=== PATIENT | female | born 1950 | race Caucasian/White ===

== ENCOUNTER 2017-07-27 09:16 | Emergency (ER) | payer MEDICARE ==
[2017-07-27 09:43] VITALS: RESP 18
[2017-07-27 10:19] LABS: Appearance,Urine Cloudy (Clear); Bacteria,Urine Occasional /hpf; Bilirubin,Urine Negative (Negative); Blood,Urine Negative (Negative); Color,Urine Yellow; Glucose,Urine (UA) Negative (Negative); Hyaline Casts,Urine 1 /lpf (0-2); Ketones,Urine Negative (Negative); Leukocyte Esterase,Urine Large (Negative); Mucus,Urine Occasional /hpf; Nitrite,Urine Negative (Negative); PH, Urine 5.5 (5.0-8.0); Protein,Urine Trace (Negative); RBC,Urine 1 /hpf (0-5); Specific Gravity,Urine 1.019 (1.001-1.035); Squamous Epithelial Cell,Urine 13 /hpf (0-4); Urobilinogen,Urine <2.0 mg/dL (<2.0); WBC,Urine 12 /hpf (0-5)
[2017-07-27] MEDS ORDERED: MORPHINE SULFATE/PF 10MG/10ML VL IVP STA (10:31)
[2017-07-27] MEDS ORDERED: SODIUM CHLORIDE 0.9% 1,000 ML IV ONE (10:31)
[2017-07-27] MEDS ORDERED: SODIUM CHLORIDE 0.9% 500 ML IV ONE (10:31)
[2017-07-27] MEDS ORDERED: ONDANSETRON 4 MG/2 ML VIAL IVP STA (10:31)
--- NOTE | 2017-07-27 10:36 | ED ---
Female Urogenital HPI - General Chief complaint: Urogenital Stated complaint: Abdominal pain Time Seen by Provider: 07/27/17 10:23 Source: patient Mode of arrival: ambulatory Limitations: no limitations - History of Present Illness Initial comments: DX years old female presents with a 2 days with diarrhea she developed dysuria last night and this morning she said she was unable to void at all also complaining about abdominal pain in the suprapubic area pain extends to the right lower quadrant area as well as left lower quadrant area and possibly surgical history is quite significant and she status post appendectomy, cholecystectomy and hysterectomy she was complaining about fever or chills blood pressure is high was unable to take her medications she was nauseous. Denies any headaches no neck stiffness no chest pain no shortness of breath no symptoms of TIA or CVA - Related Data Home Medications Medication Instructions Recorded Confirmed Cholecalciferol [Vitamin D3] 2,000 unit PO DAILY 09/21/14 07/27/17 amLODIPine BESYLATE/BENAZEPRIL 1 cap PO DAILY 09/21/14 07/27/17 [Lotrel 10-20 mg Capsule] traMADol HCl [Ultram] 100 mg PO BID 09/21/14 07/27/17 Previous Rx's Medication Instructions Recorded Ciprofloxacin HCl [Cipro] 500 mg PO Q12HR #14 tablet 07/27/17 metroNIDAZOLE [Flagyl] 500 mg PO Q8HR #21 tab 07/27/17 traMADol HCL [Ultram] 50 mg PO Q8HR PRN #20 tab 07/27/17 Allergies Allergy/AdvReac Type Severity Reaction Status Date / Time ibuprofen [From Motrin] AdvReac Unknown ELEVATED Verified 07/27/17 10:43 CREATININE Review of Systems ROS Statement: Those systems with pertinent positive or pertinent negative responses have been documented in the HPI. ROS Other: All systems not noted in ROS Statement are negative. Past Medical History Past Medical History: Hypertension, Osteoarthritis (OA) Additional Past Medical History / Comment(s): ARTHRITIS LEFT HIP AND BACK. History of Any Multi-Drug Resistant Organisms: None Reported Past Surgical History: Appendectomy, Cholecystectomy, Heart Catheterization, Hysterectomy, Joint Replacement, Orthopedic Surgery, Tonsillectomy Additional Past Surgical History / Comment(s): RIGHT KNEE ARTHROSCOPY, RT TOTAL SHOULDER., TOTAL LEFT HIP (09/2014). 03-02-15 TOTAL RT KNEE ARTHROPLASTY. Past Anesthesia/Blood Transfusion Reactions: No Reported Reaction Additional Past Anesthesia/Blood Transfusion Reaction / Comment(s): SISTER=PONV Past Psychological History: No Psychological Hx Reported Smoking Status: Never smoker - Past Family History Mother Family Medical History: Pulmonary Embolus Sister(s) Family Medical History: Cancer Additional Family Medical History / Comment(s): SISTERS X2 General Exam - General Exam Comments Initial Comments: General: The patient is awake and alert, in Mild distress, and does not appear acutely ill. Skin: Skin is warm and dry and no rashes or lesions are noted. Eye: Pupils are equal, round and reactive to light, extra-ocular movements are intact; there is normal conjunctiva bilaterally. Ears, nose, mouth and throat: There are moist mucous membranes and no oral lesions. Neck: The neck is supple, there is no tenderness or JVD. Cardiovascular: There is a regular rate and rhythm. No murmur, rub or gallop is appreciated. Respiratory: To auscultation bilateral, no wheezing no rhonchi no distress respiratory goss noticed Gastrointestinal: Tender in the right lower quadrant area, suprapubic area and the left lower quadrant area as well she is tender over left paraumbilical area as well bowel sounds are positive no guarding no rebounds. Back: There is no tenderness to palpation in the midline. There is no obvious deformity. Musculoskeletal: Normal ROM, no tenderness, There is no pedal edema. There is no calf tenderness or swelling. No cords were appreciated. Neurological: CN II-XII intact, Cranial nerves III through XII are intact. There are no obvious motor or sensory deficits. Coordination appears grossly intact. Speech is normal. Psychiatric: Cooperative, appropriate mood & affect, normal judgment. Limitations: no limitations Course Vital Signs 07/27/17 07/27/17 09:40 13:14 Temperature 97.9 F Pulse Rate 102 H 87 Respiratory 18 18 Rate Blood Pressure 176/81 154/65 O2 Sat by Pulse 97 98 Oximetry Is reassessed at term 1150, noticed a C-reactive protein is elevated she still quite tender urinalysis is also positive she be started on Rocephin and Flagyl considering the possibility of a diverticulitis she will proceed with a CT of the abdomen with pelvis with IV contrast, was discussed with the patient and she is agreeable Patient reassessed 3 times, CT abdomen is still pending we'll disposition her as soon as CT abdomen and pelvis is available Patient is reassessed at 1414, CT abdomen and pelvis showed some mom colitis light, changes in the sigmoid colon: It didn't show any abscess Locust of infection patient was informed about these findings and she be gone home on Cipro Flagyl for next 7 days that will help the cystitis as well as colitis and will give her some tramadol for the pain management area and she was advised to come back to the ER if symptoms get worse Medical Decision Making - Lab Data Result diagrams: 07/27/17 11:05 07/27/17 11:05 Lab Results 07/27/17 07/27/17 07/27/17 Range/Units 09:45 11:05 11:05 WBC 9.5 (3.8-10.6) k/uL RBC 4.60 (3.80-5.40) m/uL Hgb 13.7 (11.4-16.0) gm/dL Hct 41.2 (34.0-46.0) % MCV 89.5 (80.0-100.0) fL MCH 29.7 (25.0-35.0) pg MCHC 33.1 (31.0-37.0) g/dL RDW 13.3 (11.5-15.5) % Plt Count 294 (150-450) k/uL Neutrophils % 80 % Lymphocytes % 11 % Monocytes % 6 % Eosinophils % 1 % Basophils % 1 % Neutrophils # 7.6 (1.3-7.7) k/uL Lymphocytes # 1.0 (1.0-4.8) k/uL Monocytes # 0.6 (0-1.0) k/uL Eosinophils # 0.1 (0-0.7) k/uL Basophils # 0.1 (0-0.2) k/uL Sodium 143 (137-145) mmol/L Potassium 4.6 (3.5-5.1) mmol/L Chloride 107 (98-107) mmol/L Carbon Dioxide 22 (22-30) mmol/L Anion Gap 14 mmol/L BUN 17 (7-17) mg/dL Creatinine 1.00 (0.52-1.04) mg/dL Est GFR (CKD-EPI)AfAm 67 (>60 ml/min/1.73 sqM) Est GFR (CKD-EPI)NonAf 58 (>60 ml/min/1.73 sqM) Glucose 111 H (74-99) mg/dL Calcium 9.7 (8.4-10.2) mg/dL Total Bilirubin 0.7 (0.2-1.3) mg/dL AST 28 (14-36) U/L ALT 45 (9-52) U/L Alkaline Phosphatase 68 (38-126) U/L C-Reactive Protein 34.1 H (<10.0) mg/L Total Protein 7.1 (6.3-8.2) g/dL Albumin 4.1 (3.5-5.0) g/dL Urine Color Yellow Urine Appearance Cloudy H (Clear) Urine pH 5.5 (5.0-8.0) Ur Specific Center 1.019 (1.001-1.035) Urine Protein Trace H (Negative) Urine Glucose (UA) Negative (Negative) Urine Ketones Negative (Negative) Urine Blood Negative (Negative) Urine Nitrite Negative (Negative) Urine Bilirubin Negative (Negative) Urine Urobilinogen <2.0 (<2.0) mg/dL Ur Leukocyte Esterase Large H (Negative) Urine RBC 1 (0-5) /hpf Urine WBC 12 H (0-5) /hpf Ur Squamous Epith Cells 13 H (0-4) /hpf Urine Bacteria Occasional H (None) /hpf Hyaline Casts 1 (0-2) /lpf Urine Mucus Occasional H (None) /hpf Disposition Clinical Impression: Colitis Disposition: HOME SELF-CARE Condition: Good Instructions: Urinary Tract Infection in Women (ED) Prescriptions: Ciprofloxacin HCl [Cipro] 500 mg PO Q12HR #14 tablet metroNIDAZOLE [Flagyl] 500 mg PO Q8HR #21 tab traMADol HCL [Ultram] 50 mg PO Q8HR PRN #20 tab PRN Reason: Pain Referrals: Mainor Yao DO [Primary Care Provider] - 1-2 days
[2017-07-27 11:21] LABS: Basophils # (A) 0.1 k/uL (0-0.2); Basophils % (A) 1 %; Eosinophils # (A) 0.1 k/uL (0-0.7); Eosinophils % (A) 1 %; HCT 41.2 % (34.0-46.0); HGB 13.7 gm/dL (11.4-16.0); Lymphocytes % (A) 11 %; MCH 29.7 pg (25.0-35.0); MCHC 33.1 g/dL (31.0-37.0); MCV 89.5 fL (80.0-100.0); Mean Platelet Volume 7.8; Monocytes # (A) 0.6 k/uL (0-1.0); Monocytes % (A) 6 %; Neutrophils # (A) 7.6 k/uL (1.3-7.7); Neutrophils % (A) 80 %; Platelet Count 294 k/uL (150-450); RDW 13.3 % (11.5-15.5); WBC 9.5 k/uL (3.8-10.6)
[2017-07-27 11:37] LABS: Albumin 4.1 g/dL (3.5-5.0); C Reactive Protein 34.1 mg/L (<10.0); Calcium 9.7 mg/dL (8.4-10.2); Potassium 4.6 mmol/L (3.5-5.1); Total Bilirubin 0.7 mg/dL (0.2-1.3); Total Protein 7.1 g/dL (6.3-8.2)
[2017-07-27] MEDS ORDERED: RX INFO: IV CONTRAST WAS GIVEN 1 EACH MISC MISCELLANE PRN (11:46)
[2017-07-27] MEDS ORDERED: cefTRIAXone IN SWFI 2,000 MG/20 ML SYRINGE IVP STA (11:50)
[2017-07-27] MEDS ORDERED: metroNIDAZOLE-NS PMX 500 MG in SALINE 1 100ML.BAG IVPB STA (11:51)
--- NOTE | 2017-07-27 14:00 | CT ---
EXAMINATION TYPE: CT abdomen pelvis w con DATE OF EXAM: 07/27/2017 COMPARISON: NONE HISTORY: pelvic pain CT DLP: 1745 mGycm CONTRAST: CT scan of the abdomen and pelvis is performed without Oral Contrast and with IV Contrast, patient in jected with 100 mL of Isovue 300. FINDINGS: LUNG BASES-: No visible nodule. No infiltrate. Small hiatal hernia noted. LIVER/GB: Cholecystectomy clips in place. No space occupying hepatic lesion. Biliary tree is of no rmal caliber. PANCREAS: No inflammation. No distinct mass. SPLEEN: No splenic enlargement. No lesion seen. ADRENALS: No nodule. No thickening. KIDNEYS/BLADDER: No hydronephrosis. No nephrolithiasis. No distinct solid renal mass. Renal cystic changes noted. Urinary bladder grossly unremarkable. BOWEL: Appendectomy changes noted. Mild sigmoid wall thickening with stranding may reflect a colitis . No evidence for free air or perforation. Remainder of the small and large bowel are normal caliber. Moderate fecal stasis. GENITAL ORGANS: No gross abnormality. LYMPH NODES: No greater than 1cm abdominal or pelvic lymph nodes are appreciated. AORTA: No significant abnormality. OSSEOUS STRUCTURES: Left hip prosthesis noted. Degenerative changes lumbar spine. OTHER: No significant additional abnormality is seen. IMPRESSION: 1. Correlate for mild sigmoid colitis. 2. Moderate fecal stasis. 3. Hepatic steatosis.
[2017-07-27 14:29] VITALS: BP 144/70; PULSE 90; TEMP 97.4
--- NOTE | 2017-07-27 14:29 | XR ---
EXAMINATION TYPE: XR abdomen acute w cxr DATE OF EXAM: 07/27/2017 COMPARISON: NONE HISTORY: Pain TECHNIQUE: Supine, upright, and left side down lateral decubitus views of the abdomen are obtained. FINDINGS: The lungs are clear. Previous surgery noted. No overt failure pneumothorax. No pleural effu suzan. Curvature the spine noted. Bowel gas pattern nonspecific. Retained fecal debris throughout the colon. Postsurgical change left. Arthropathy right calcifications in pelvis are likely vascular. 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 Diffuse osteopenia IMPRESSION: 1. Nonspecific abdomen no acute intrathoracic process. Correlate for constipation.
== END 2017-07-27 14:32 | disposition home or self-care (01) ==
LOC: EC 09:16
DX: K52.9 Noninfective gastroenteritis and colitis, unspecified (principal); I10 Essential (primary) hypertension; M19.90 Unspecified osteoarthritis, unspecified site; Z90.49 Acquired absence of other specified parts of digestive tract; Z95.5 Presence of coronary angioplasty implant and graft; Z79.899 Other long term (current) drug therapy; Z88.6 Allergy status to analgesic agent
CPT/HCPCS: 36415; 80053; 85025; 86140; 81001; 87086; 74022; 74177; 99284; 96365; 96375 ×3; 96361; J2405; J0696; Q9967; J2270; 99283

== ENCOUNTER → 2021-05-24 | Day surgery (SDC) | payer MEDICARE ==
[2021-05-24 10:02] VITALS: PULSE 84; RESP 16
[2021-05-24 11:08] VITALS: BP 122/79; TEMP 98
--- NOTE | 2021-05-24 11:58 | USB ---
EXAMINATION TYPE: US biopsy breast VAD RT, MG diagnostic mammo RT wo CAD DATE OF EXAM: 05/24/2021 CLINICAL HISTORY: R92.8, Abnormal mammogram. Abnormal ultrasound. Family history of breast cancer. TECHNIQUE: Ultrasound guided core biopsy of right breast with clip placement and follow-up two-view mammogram. COMPARISON: Outside Right breast ultrasound and bilateral mammogram 12 days ago. FINDINGS: The procedure of ultrasound guided core biopsy was explained to the patient. Benefits, alternatives, and risks were discussed. An informed consent was then obtained. The patient was placed in supine positioning for imaging and for the procedure. Preprocedure ultrasound redemonstrates large lobulated slightly hypoechoic solid mass measuring near 5.0 cm long axis at 11:00 position in the right breast. The overlying skin was prepped and draped in usual sterile fashion. Lidocaine is used as anesthetic into the skin and subcutaneous tissue up to area of concern in the right breast. Under ultrasound guidance, a vacuum assisted biopsy gun device was used to obtain 3 core samples. Following this, a biopsy clip was left in lesion. The patient tolerated the procedure well without any immediate complication. The patient was kept in the radiology department for short stay after the procedure and then discharged home in stable condition. Postprocedure mammogram showed successful deployment of clip in the anterior aspect of the large mass. IMPRESSION: Successful, uncomplicated ultrasound guided core biopsy of area of concern in the right breast, full pathology results to follow. High index of suspicion noted at time of procedure. Pathology Results: Malignant RIGHT BREAST, 11:00 POSITION, CORE BIOPSY: Moderately differentiated mucinous adenocarcinoma, Grade 2 (see Surgical Pathology Cancer Case Summary and comment). Recommendation Surgical consult of the right breast. BERNARDA
== END ==
LOC: RADUSWWP 09:31
PROVIDERS: ATTEND Surgery
DX: R92.8 Other abnormal and inconclusive findings on diagnostic imaging of breast (principal); C50.411 Malignant neoplasm of upper-outer quadrant of right female breast; Z17.0 Estrogen receptor positive status [ER+]; Z88.6 Allergy status to analgesic agent
CPT/HCPCS: 77065; 19083; A4648; J2001; 88305; 88341; 88342

== ENCOUNTER → 2021-06-09 | Outpatient (CLI) | payer MEDICARE ==
[2021-06-09 14:34] VITALS: BP 126/77; PULSE 81; RESP 16; TEMP 98.1
--- NOTE | 2021-06-09 15:12 | P.GSHP ---
History of Present Illness H&P Date: 06/09/21 Chief Complaint: Mucinous adenocarcinoma right breast Erika is a 71 -year-old white female seen in consultation for Dr. Yao regarding the right breast mucinous adenocarcinoma. She had a bilateral mammogram and right breast ultrasound performed on 1621 performed which revealed a lesion in the right breast. The lesion in the right breast was approximately 5.8 x 5.1 cm in size. She then underwent an ultrasound-guided core biopsy on which revealed a moderately differentiated mucinous adenocarcinoma grade 2. The lesion is ER/OH positive and HER-2 negative. She is able to feel the lesion in her breast for about two months. She has a suspicious lesion on ultrasound under her right arm 1.3 cm in size. She has never had any surgery on her breast. She does not have any history of infection or trauma to the breast. She had not had a prior mammogram for many years. caffeine: 2 cups of coffee/day nicotine: none chocolate: occasional hormones: short time after total hysterectomy BCP: none Family History: 2 sisters: bilateral breast removed/ breast cancer; uncertain if cancer in both breast; sisters were in their 40's or 50's when diagnosed mother: breast cancer in 70's paternal aunt: breast cancer Hormonal History: menarche: 12 M1, breast fed: no, age at first : 19 menopause: total hysterectomy at 39 hormones: after WILDER 1 year Surgical history: Total abdominal hysterectomy done for endometriosis gallbladder appy orthopediac left hip total, right knee total,left hip redone, right hip left knee heart cath Medical History: Hypertension Hyperlipidemia Osteoarthritis Social History: nicotine: none alcohol: none drugs: none - Constitutional Constitutional: Denies chills, Denies fever - EENT Comment: beginning of macular degeneration, bilateral cataracts Eyes: denies blurred vision, denies pain Ears: deny: decreased hearing, tinnitus Ears, nose, mouth and throat: Denies headache, Denies sore throat - Breasts Breasts: bilateral: as per HPI - Cardiovascular Cardiovascular: Denies chest pain, Denies shortness of breath - Respiratory Respiratory: Denies cough, Denies 7 - Gastrointestinal Gastrointestinal: Denies abdominal pain, Denies diarrhea, Denies nausea, Denies vomiting - Genitourinary (Female) Genitourinary: Denies dysuria, Denies hematuria - Menstruation Menstruation: Reports post hysterectomy - Musculoskeletal Comment: rotator cuff surgery, uses a wheel chair uses ultram Musculoskeletal: Reports as per HPI - Integumentary Comment: dry skin - Neurological Comment: right hand numbness/carpel tunnel - Psychiatric Psychiatric: Denies anxiety, Denies depression - Endocrine Endocrine: Denies fatigue, Denies weight change - Hematologic/Lymphatic Comment: none - Allergic/Immunologic Allergic/Immunologic: Reports as per HPI Past Medical History Past Medical History: Hyperlipidemia, Hypertension, Osteoarthritis (OA) Additional Past Medical History / Comment(s): ARTHRITIS LEFT HIP AND BACK. History of Any Multi-Drug Resistant Organisms: None Reported Past Surgical History: Appendectomy, Cholecystectomy, Heart Catheterization, Hysterectomy, Joint Replacement, Orthopedic Surgery, Tonsillectomy Additional Past Surgical History / Comment(s): RIGHT KNEE ARTHROSCOPY, RT TOTAL SHOULDER., TOTAL LEFT HIP (09/2014). 03-02-15 TOTAL RT KNEE ARTHROPLASTY. Past Anesthesia/Blood Transfusion Reactions: No Reported Reaction Additional Past Anesthesia/Blood Transfusion Reaction / Comment(s): SISTER=PONV Past Psychological History: No Psychological Hx Reported Smoking Status: Never smoker Past Alcohol Use History: None Reported Past Drug Use History: None Reported - Past Family History Mother Family Medical History: Pulmonary Embolus Sister(s) Family Medical History: Cancer, Hyperlipidemia Additional Family Medical History / Comment(s): SISTERS X2 breast Medications and Allergies Home Medications Medication Instructions Recorded Confirmed Type amLODIPine BESYLATE/BENAZEPRIL 1 cap PO DAILY 09/21/14 06/09/21 History [Lotrel 10-20 mg Capsule] traMADol HCl [Ultram] 100 mg PO BID 09/21/14 06/09/21 History Methocarbamol [Robaxin-750] 750 mg PO BID PRN 05/23/21 06/09/21 History Multivitamin/Iron/Folic Acid 1 cap PO DAILY 05/23/21 06/09/21 History [Centrum Women Tablet] Rosuvastatin Calcium [Crestor] 5 mg PO DAILY 05/23/21 06/09/21 History Vit C/E/Zn/Coppr/Lutein/Zeaxan 1 cap PO BID 05/23/21 06/09/21 History [Preservision Areds 2 Softgel] Allergies Allergy/AdvReac Type Severity Reaction Status Date / Time ibuprofen [From Motrin] AdvReac Unknown ELEVATED Verified 06/09/21 14:27 CREATININE Surgical - Exam Vital Signs Temp Pulse Resp BP 98.1 F 81 16 126/77 06/09/21 14:29 06/09/21 14:29 06/09/21 14:29 06/09/21 14:29 BMI 45.3 - General no distress - Eyes normal ocular movement - Neck trachea midline - Respiratory normal respiratory effort, clear to auscultation - Cardiovascular Rhythm: regular Heart Sounds: normal: S1, S2 - Integumentary normal turgor - Neurologic no disoriented, no combative - Musculoskeletal in a wheel chair - Psychiatric oriented to time, oriented to person, oriented to place, speech is normal, memory intact Breast Exam: BRA: 42B inspection: Fullness right breast upper outer quadrant, bilateral grade 3 ptosis Palpation: Right breast: Examination reveals approximately a 5 x 5 cm mass in the upper outer quadrant area, no dominant masses or nodules otherwise of concern Right axilla: No discrete adenopathy of concern Left breast: No dominant masses or nodules of concern Left axilla: No adenopathy of concern The patient was examined in the upright position, she was unable to easily get on the examining table Assessment and Plan Assessment: Impression: Hypertension Hyperlipidemia Osteoarthritis right breast invasive mucinous cancer Plan: 1. present at tumor board 2. appointment with medical oncology 3. genetic testing CC: Dr. Yao
== END ==
LOC: WWCWWP 13:33
PROVIDERS: ATTEND Surgery
DX: C50.911 Malignant neoplasm of unspecified site of right female breast (principal); I10 Essential (primary) hypertension; E78.5 Hyperlipidemia, unspecified; M16.12 Unilateral primary osteoarthritis, left hip; M47.819 Spondylosis without myelopathy or radiculopathy, site unspecified; Z79.899 Other long term (current) drug therapy; Z88.6 Allergy status to analgesic agent

== ENCOUNTER → 2021-06-22 | Day surgery (SDC) | payer MEDICARE ==
[2021-06-22 07:51] VITALS: RESP 18
[2021-06-22 09:21] VITALS: BP 132/84; PULSE 92; TEMP 98.3
--- NOTE | 2021-06-22 10:15 | USB ---
EXAMINATION TYPE: US biopsy breast VAD RT DATE OF EXAM: 06/22/2021 CLINICAL HISTORY: C50.911, Right breast cancer. TECHNIQUE: Ultrasound guided core biopsy of right axillary lymph node breast. COMPARISON: NONE FINDINGS: The procedure of ultrasound guided core biopsy was explained to the patient. Benefits, alt ernatives, and risks were discussed. An informed consent was then obtained. The patient was placed in supine positioning for imaging and for the procedure. The overlying skin w as prepped and draped in usual sterile fashion. Lidocaine buffered with bicarbonate was used as anes thetic into the skin and subcutaneous tissue up to area of concern in the right axillary lymph node. Under ultrasound guidance, a 12-gauge vacuum assisted biopsy gun device was used to obtain 3 core arben ples. Following this, a biopsy clip was left in lesion. The patient tolerated the procedure well without any immediate complication. The patient was kept in the radiology department for short stay after the procedure and then discharged home in stable condi tion. IMPRESSION: Successful, uncomplicated ultrasound guided core biopsy of area of concern in the right a xillary lymph node, full pathology results to follow.
== END ==
LOC: RADUSWWP 07:22
PROVIDERS: ATTEND Surgery
DX: C50.911 Malignant neoplasm of unspecified site of right female breast (principal); Z88.6 Allergy status to analgesic agent
CPT/HCPCS: 88305; 19083; A4648; J2001

== ENCOUNTER → 2021-06-24 | Outpatient (CLI) | payer MEDICARE ==
--- NOTE | 2021-06-28 12:28 | PE ---
Nuclear Medicine PET/CT HISTORY: Right Breast carcinoma, initial patient received 7.4 mCi F-18 FDG intravenously in delayed scanning was performed from the skull base to the mid thighs. A localization and attenuation correction CT scan was performed. Correlation to ultrasound from outside institution 05/24/2021, mammogram 05/12/2021 chest and neck: Right breast mass shows associated hypermetabolic uptake, SUV is 7.5. Mild uptake chris ng the biopsy tract noted in the right axilla, no evident axillary, mediastinal, or hilar adenopathy, no cervical or supraclavicular adenopathy. There is no pleural effusion. Minimal pericardial fluid n oted at the dependent portion of the pericardium. No endobronchial lesion. No evident lung mass. Some calcification noted along the posterior pleural margin on the right at the posterior lung base noted . ABDOMEN: No evident liver mass or suspicious uptake. Cortical cysts are associated with the kidneys. Postop change noted to the hips causing some streak artifact. No evident ascites or pelvic adenopathy . Uptake along the bowel is felt likely to be physiologic. Uterus and adnexal structures are not seen . Osseous structures show no suspicious uptake. Postop change noted to the right shoulder. IMPRESSION: Findings consistent with patient's history of right breast carcinoma
== END | disposition home or self-care (01) ==
LOC: RADPETMAIN 11:19
PROVIDERS: ATTEND Surgery
DX: C50.911 Malignant neoplasm of unspecified site of right female breast (principal)
CPT/HCPCS: 78815; A9552

== ENCOUNTER → 2021-06-30 | Outpatient (CLI) | payer MEDICARE ==
[2021-06-30 13:38] VITALS: BP 187/73; PULSE 86; RESP 17; TEMP 97.9
--- NOTE | 2021-06-30 14:04 | P.PN ---
Progress Note - Text Progress Note Date: 06/30/21 [id number]+Her2-G2 right breast invasive ductal cancer Presents today for results of her PET scan. PET scan did not show any evidence of metastatic disease. She has received the kit for her genetic testing but has not yet sent it back. She underwent a left lymph node biopsy on which was negative for metastatic disease. Her case will be presented at tumor board Patient is not interested in breast conservation. She is not interested in reconstruction. She is given the option of seeing a plastic surgeon and declined. We are awaiting the results of her genetic testing at this time. Patient will follow up in 3 weeks. She states that she has persistent pain in the right breast related to the tumor. She would like this to be surgically removed as soon as possible. Plan: Presentation of case at tumor board Await genetic testing Follow-up next week for results of tumor board Clearance with Dr. Yao CC: Dr. Yao
== END ==
LOC: WWCWWP 12:24
PROVIDERS: ATTEND Surgery
DX: C50.911 Malignant neoplasm of unspecified site of right female breast (principal); Z88.6 Allergy status to analgesic agent

== ENCOUNTER → 2021-07-08 | Outpatient (CLI) | payer MEDICARE ==
[2021-07-08 15:36] VITALS: BP 139/73; PULSE 90; RESP 18; TEMP 97.7
--- NOTE | 2021-07-08 16:19 | P.PN ---
Subjective Progress Note Date: 07/08/21 Principal diagnosis: Stage IB right breast mucinous carcinoma 1. Ultrasound-guided core biopsy right axillary lymph node 2. PET scan 3. Presentation of case at tumor board 4. Appointment with medical oncology 5. Follow up here in 3 weeks 6. genetic testing CC: Dr. Yao The above studies were discussed with the patient as well as treatment options and the patient's pathology results. The patient and her daughter understand. These things are being scheduled. Original Note: History of Present Illness H&P Date: 06/09/21 Chief Complaint: Mucinous adenocarcinoma right breast Erika is a 71 -year-old white female seen in consultation for Dr. Yao regarding the right breast mucinous adenocarcinoma. She had a bilateral mammogram and right breast ultrasound performed on 1621 performed which revealed a lesion in the right breast. The lesion in the right breast was approximately 5.8 x 5.1 cm in size. She then underwent an ultrasound-guided core biopsy on which revealed a moderately differentiated mucinous adenocarcinoma grade 2. The lesion is ER/MO positive and HER-2 negative. She is able to feel the lesion in her breast for about two months. She has a suspicious lesion on ultrasound under her right arm 1.3 cm in size. She has never had any surgery on her breast. She does not have any history of infection or trauma to the breast. She had not had a prior mammogram for many years. 07-08-21 The patient had a PET scan performed which did not show any evidence of metastatic disease She received her kit for genetic testing and this has been sent and we are awaiting this to be returned She underwent a left last lymph node biopsy on which was negative for metastatic disease Her case was re-presented at tumor board The patient has chosen for bilateral mastectomy without reconstruction. She has recently been seen by Dr. Bautista does not feel that any neoadjuvant treatment as necessary. She is been seen by Dr. Yao today for medical clearance. caffeine: 2 cups of coffee/day nicotine: none chocolate: occasional hormones: short time after total hysterectomy BCP: none Family History: 2 sisters: bilateral breast removed/ breast cancer; uncertain if cancer in both breast; sisters were in their 40's or 50's when diagnosed mother: breast cancer in 70's paternal aunt: breast cancer Hormonal History: menarche: 12 M1, breast fed: no, age at first : 19 menopause: total hysterectomy at 39 hormones: after WILDER 1 year Surgical history: Total abdominal hysterectomy done for endometriosis gallbladder appy orthopediac left hip total, right knee total,left hip redone, right hip left knee heart cath Medical History: Hypertension Hyperlipidemia Osteoarthritis Social History: nicotine: none alcohol: none drugs: none - Constitutional Constitutional: Denies chills, Denies fever - EENT Comment: beginning of macular degeneration, bilateral cataracts Eyes: denies blurred vision, denies pain Ears: deny: decreased hearing, tinnitus Ears, nose, mouth and throat: Denies headache, Denies sore throat - Breasts Breasts: bilateral: as per HPI - Cardiovascular Cardiovascular: Denies chest pain, Denies shortness of breath - Respiratory Respiratory: Denies cough - Gastrointestinal Gastrointestinal: Denies abdominal pain, Denies diarrhea, Denies nausea, Denies vomiting - Genitourinary (Female) Genitourinary: Denies dysuria, Denies hematuria - Menstruation Menstruation: Reports post hysterectomy - Musculoskeletal Comment: rotator cuff surgery, uses a wheel chair uses ultram Musculoskeletal: Reports as per HPI - Integumentary Comment: dry skin - Neurological Comment: right hand numbness/carpel tunnel - Psychiatric Psychiatric: Denies anxiety, Denies depression - Endocrine Endocrine: Denies fatigue, Denies weight change - Hematologic/Lymphatic Comment: none - Allergic/Immunologic Allergic/Immunologic: Reports as per HPI Objective - Vital Signs Vital signs: Vital Signs Temp 97.7 F 07/08/21 15:33 Pulse 90 07/08/21 15:33 Resp 18 07/08/21 15:33 BP 139/73 07/08/21 15:33 Pulse Ox 97 07/08/21 15:33 Intake & Output 07/07/21 07/08/21 07/08/21 18:59 06:59 18:59 Weight 108.862 kg - Constitutional General appearance: Present: cooperative - EENT Eyes: Present: EOMI ENT: Present: hearing grossly normal - Neck Neck: Present: normal ROM - Respiratory Respiratory: bilateral: CTA - Cardiovascular Rhythm: regular Heart sounds: normal: S1, S2 - Gastrointestinal General gastrointestinal: Present: soft - Integumentary Integumentary: Present: normal turgor - Musculoskeletal Musculoskeletal Comment(s): Uses a cane/or wheelchair secondary to arthritis - Psychiatric Psychiatric: Present: A&O x's 3, appropriate affect, intact judgment & insight - Additional findings Additional findings: Breast examination: BRA:42B inspection: fullness right breast upper outer quadrant, bilateral grade 3 ptosis Palpation: Right breast: 5 cm mass upper outer quadrant/fibrocystic changes/no other dominant masses or nodules of concern Right axilla: No adenopathy of concern Left breast: Multi-positional exam fibrocystic changes no dominant masses or nodules of concern Left axilla: No adenopathy of concern Assessment and Plan Assessment: Impression: Hypertension Hyperlipidemia Osteoarthritis Stage I the right breast mucinous carcinoma Plan: Bilateral mastectomy with right sentinel node injection, right sentinel node biopsy, possible right axillary node dissection Clearance from Dr. Yao Risk and benefits of the procedure were discussed with the patient and her daughter. They understand and wish to proceed. This was scheduled in the near future. CC: Dr. Yao
== END ==
LOC: WWCWWP 15:25
PROVIDERS: ATTEND Surgery
DX: C50.911 Malignant neoplasm of unspecified site of right female breast (principal); I10 Essential (primary) hypertension; E78.5 Hyperlipidemia, unspecified; M19.90 Unspecified osteoarthritis, unspecified site; Z88.6 Allergy status to analgesic agent

== ENCOUNTER 2021-07-16 19:24 | Emergency (ER) | payer MEDICARE ==
[2021-07-16 19:57] VITALS: BP 136/74; PULSE 107; RESP 20; TEMP 98.9
[2021-07-16] MEDS ORDERED: ONDANSETRON ODT 4 MG TAB PO STA (20:55)
[2021-07-16] MEDS ORDERED: MORPHINE SULFATE 4 MG/ML SYRINGE IM STA ×2 (20:55→23:09)
--- NOTE | 2021-07-16 21:55 | ED ---
Fall HPI - General Chief Complaint: Fall Stated Complaint: Fall, Left Arm Injury Time Seen by Provider: 07/16/21 20:39 Source: patient Mode of arrival: wheelchair - History of Present Illness Initial Comments: Patient is a 71-year-old female who presents to the emergency department with a chief complaint of fall at 5:30 PM today. Patient reports she was leaning over on her porch to grab the newspaper when she lost her balance and fell forward, hitting her left chest on the handicap railing. Patient landed on her left arm/wrist and right knee. She denies head trauma, LOC, and blood thinner use. Patient currently reports pain in the left-sided chest wall, left upper extremity worst in the wrist, and right knee pain. She denies numbness/tingling in the left upper extremity and right lower extremity. She states that she feels nauseous due to pain. She has no other concerns at this time including fever, chills, headache, shortness of breath, cough, chest pain, abdominal pain, nausea, vomiting, diarrhea, and dysuria. Of note, patient has a double mastectomy scheduled on 08/16/21 due to right sided breast cancer. - Related Data Home Medications Medication Instructions Recorded Confirmed amLODIPine BESYLATE/BENAZEPRIL 1 cap PO DAILY 09/21/14 07/08/21 [Lotrel 10-20 mg Capsule] traMADol HCl [Ultram] 50 mg PO BID 09/21/14 07/08/21 Methocarbamol [Robaxin-750] 750 mg PO BID PRN 05/23/21 07/08/21 Multivitamin/Iron/Folic Acid 1 cap PO DAILY 05/23/21 07/08/21 [Centrum Women Tablet] Vit C/E/Zn/Coppr/Lutein/Zeaxan 1 cap PO BID 05/23/21 07/08/21 [Preservision Areds 2 Softgel] Rosuvastatin Calcium [Crestor] 5 mg PO DAILY 07/08/21 07/08/21 Previous Rx's Medication Instructions Recorded HYDROcodone/APAP 10-325MG [Winthrop 1 tab PO Q6HR PRN 3 Days #12 tab 07/16/21 10-325] Allergies Allergy/AdvReac Type Severity Reaction Status Date / Time ibuprofen [From Motrin] AdvReac Unknown ELEVATED Verified 07/16/21 19:57 CREATININE Review of Systems ROS Statement: Those systems with pertinent positive or pertinent negative responses have been documented in the HPI. ROS Other: All systems not noted in ROS Statement are negative. Past Medical History Past Medical History: Hyperlipidemia, Hypertension, Osteoarthritis (OA) Additional Past Medical History / Comment(s): ARTHRITIS LEFT HIP AND BACK. History of Any Multi-Drug Resistant Organisms: None Reported Past Surgical History: Appendectomy, Cholecystectomy, Heart Catheterization, Hysterectomy, Joint Replacement, Orthopedic Surgery, Tonsillectomy Additional Past Surgical History / Comment(s): RIGHT KNEE ARTHROSCOPY, RT TOTAL SHOULDER., TOTAL LEFT HIP (09/2014). 03-02-15 TOTAL RT KNEE ARTHROPLASTY. Past Anesthesia/Blood Transfusion Reactions: No Reported Reaction Additional Past Anesthesia/Blood Transfusion Reaction / Comment(s): SISTER=PONV Past Psychological History: No Psychological Hx Reported Smoking Status: Never smoker Past Alcohol Use History: None Reported Past Drug Use History: None Reported - Past Family History Mother Family Medical History: Pulmonary Embolus Sister(s) Family Medical History: Cancer, Hyperlipidemia Additional Family Medical History / Comment(s): SISTERS X2 breast General Exam Limitations: no limitations General appearance: alert, in no apparent distress Head exam: Present: atraumatic, normocephalic, normal inspection Eye exam: Present: normal appearance, PERRL, EOMI. Absent: scleral icterus, conjunctival injection, periorbital swelling Neck exam: Present: normal inspection. Absent: tenderness Respiratory exam: Present: normal lung sounds bilaterally, chest wall tenderness (Left-sided). Absent: respiratory distress, wheezes, rales, rhonchi, stridor Cardiovascular Exam: Present: normal rhythm, tachycardia GI/Abdominal exam: Present: soft, normal bowel sounds. Absent: distended, tenderness, guarding, rebound, rigid Left Shoulder Exam: Present: normal inspection, full ROM. Absent: tenderness, swelling Upper Arm exam: Present: normal inspection, full ROM, tenderness (Lateral proximal humeral region). Absent: swelling, abrasion, laceration Elbow exam: Present: normal inspection, full ROM. Absent: tenderness, swelling, abrasion, laceration Forearm Wrist exam: Absent: abrasion, laceration Hand Wrist exam: Present: full ROM, tenderness (Posterior wrist). Absent: normal inspection, abrasion, laceration Neuro motor exam: Present: wrist extension intact, thumb opposition intact, thumb IP flexion intact, thumb adduction intact, fingers 2-5 abduction intact Neurosensory exam: Present: radial nerve intact, ulnar nerve intact Vascular: Present: normal capillary refill. Absent: vascular compromise, pulse deficit radial art, pulse deficit ulnar art, pulse deficit brachial art Right Knee exam: Present: full ROM, swelling (Inferior patellar region), erythema (Inferior patellar region). Absent: normal inspection, abrasion, laceration, deformity, dislocation Neurovascular tendon exam: Present: no vascular compromise. Absent: pulse deficit Neurological exam: Present: alert, oriented X3, CN II-XII intact Psychiatric exam: Present: normal affect, normal mood Skin exam: Present: warm, dry, intact, normal color. Absent: rash Course Vital Signs 07/16/21 19:53 Temperature 98.9 F Pulse Rate 107 H Respiratory 20 Rate Blood Pressure 136/74 O2 Sat by Pulse 98 Oximetry Medical Decision Making - Medical Decision Making This is a 71-year-old who presents with fall. Thorough history and examination were performed. Patient is tender with palpation of the left chest wall, left lateral proximal humerus, and left posterior wrist. The right knee reveals mild swelling in the inferior patellar region. Chest x-ray, left humerus, left elbow, left forearm, and left wrist xray were obtained. Chest x-ray reveals no acute cardiopulmonary disease with no evidence of rib fracture. Left humerus x-ray reveals possible chip fracture of the greater tuberosity of the humerus. Left elbow, left forearm, and left wrist x-ray are negative for fracture and dislocation. Right knee x-ray reveals no fracture or significant joint effusion. Patient given morphine for pain and Zofran for nausea. On reevaluation nausea is improved however she is still very uncomfortable due to left arm pain. Winthrop was given. Left arm was placed in a sling. Sling education was provided. Patient instructed to follow-up with process safety specialist at earliest available appointment. I will prescribe her a short course of Winthrop to go home with instruction to start tomorrow. Return parameters discussed. Patient verbalizes understanding and is agreeable to plan. Dr. Palacios is my attending. Disposition Clinical Impression: Fall Disposition: HOME SELF-CARE Condition: Good Instructions (If sedation given, give patient instructions): Fall Prevention for Older Adults (ED) Additional Instructions: Please keep sling on until orthopedic evaluation. Follow-up with process safety specialist at earliest available appointment. Take Winthrop as needed for pain starting tomorrow. Return to the emergency department if you experience new, concerning, or worsening symptoms. Prescriptions: HYDROcodone/APAP 10-325MG [Winthrop 10-325] 1 tab PO Q6HR PRN 3 Days #12 tab PRN Reason: Pain Is patient prescribed a controlled substance at d/c from ED?: Yes When asked, does pt state using other controlled substances?: No If prescribed controlled substance>3 days was MAPS reviewed?: Prescribed <3 Days If opioid is for acute pain is fill amount 7 days or less?: Yes If Rx opioid, was Start Talking consent form obtained?: Yes Referrals: Mainor Yao DO [Primary Care Provider] - 1-2 days
--- NOTE | 2021-07-16 22:12 | XR ---
EXAMINATION TYPE: XR chest 2V DATE OF EXAM: 07/16/2021 COMPARISON: NONE HISTORY: Chest pain TECHNIQUE: 2 views FINDINGS: There is no heart failure no confluent pneumonic infiltrate. Costophrenic angles are clear. Bony thorax is intact. IMPRESSION: No active cardiopulmonary disease. No change.
--- NOTE | 2021-07-16 22:21 | XR ---
EXAMINATION TYPE: XR humerus LT DATE OF EXAM: 07/16/2021 COMPARISON: NONE HISTORY: Fall. Pain TECHNIQUE: 3 views FINDINGS: There is some spurring at the greater tuberosity humerus. There is possible fracture of the greater tuberosity. Elbow joint spaces are fairly normal. IMPRESSION: Possible chip fracture of the greater tuberosity of the humerus. Degenerative spurring at the AC joint. Elbow joint is intact.
--- NOTE | 2021-07-16 22:22 | XR ---
EXAMINATION TYPE: XR forearm LT DATE OF EXAM: 07/16/2021 COMPARISON: NONE HISTORY: Pain TECHNIQUE: 2 views FINDINGS: Radius and ulna appear intact. I see no fracture nor dislocation. Elbow joint is intact. IMPRESSION: Negative left forearm exam. No fracture seen
--- NOTE | 2021-07-16 22:24 | XR ---
EXAMINATION TYPE: XR wrist complete LT DATE OF EXAM: 07/16/2021 COMPARISON: NONE HISTORY: Pain TECHNIQUE: 4 views FINDINGS: There are small degenerative cyst in the scaphoid. Distal radius and ulna appear intact wit h no fracture nor dislocation. There is narrowing and spurring at the first carpometacarpal joint. IMPRESSION: No acute abnormality of the left wrist. Osteoarthritis at the base of the thumb.
--- NOTE | 2021-07-16 22:29 | XR ---
EXAMINATION TYPE: XR knee complete RT DATE OF EXAM: 07/16/2021 COMPARISON: NONE HISTORY: Pain. Fall TECHNIQUE: 5 views FINDINGS: There is right knee prosthesis. Components appear in anatomic position. There is no evidenc e of any significant joint effusion. IMPRESSION: No fractures seen.
--- NOTE | 2021-07-16 22:30 | XR ---
EXAMINATION TYPE: XR elbow complete LT DATE OF EXAM: 07/16/2021 COMPARISON: NONE HISTORY: Fall. Pain TECHNIQUE: 4 views FINDINGS: I see no fracture nor dislocation. Elbow joint spaces are fairly normal. There is no sign o f elbow joint effusion. IMPRESSION: Negative left elbow exam. No fracture.
[2021-07-16] MEDS ORDERED: MORPHINE SULFATE 4 MG/ML SYRINGE IVP STA (23:08)
[2021-07-16] MEDS ORDERED: HYDROcodone/APAP 7.5-325MG 1 EACH TAB PO ONE (23:09)
== END 2021-07-16 23:52 | disposition home or self-care (01) ==
LOC: EC 19:24
DX: R07.89 Other chest pain (principal); I10 Essential (primary) hypertension; E78.5 Hyperlipidemia, unspecified; M19.90 Unspecified osteoarthritis, unspecified site; Z88.6 Allergy status to analgesic agent; Z90.49 Acquired absence of other specified parts of digestive tract; Z90.710 Acquired absence of both cervix and uterus; Z96.651 Presence of right artificial knee joint
CPT/HCPCS: 99284; 96372 ×2; 73060; 73080; 73090; 73110; 73562; 71046; J2270

== ENCOUNTER → 2021-07-28 | Outpatient (CLI) | payer MEDICARE ==
[2021-07-28 14:42] VITALS: BP 125/81; PULSE 84; RESP 18; TEMP 98.6
--- NOTE | 2021-07-28 15:22 | P.PN ---
Subjective Progress Note Date: 07/28/21 Principal diagnosis: right breast cancer Erika is a 71 -year-old white female seen in consultation for Dr. Yao regarding the right breast mucinous adenocarcinoma. She had a bilateral mammogram and right breast ultrasound performed on 1621 performed which revealed a lesion in the right breast. The lesion in the right breast was approximately 5.8 x 5.1 cm in size. She then underwent an ultrasound-guided core biopsy on which revealed a moderately differentiated mucinous adenocarcinoma grade 2. The lesion is ER/OH positive and HER-2 negative. She is able to feel the lesion in her breast for about three months. She has a suspicious lesion on ultrasound under her right arm 1.3 cm in size. She has never had any surgery on her breast. She does not have any history of infection or trauma to the breast. She had not had a prior mammogram for many years. The patient had a biopsy of the right axillary lymph node 06-22-21 which was negative for cancer. Pet scan negative. Patient fell on was seen in the emergency room. She had her left breast/arm and wrist and right knee. She states that she has a possible chip fracture of the greater tuberosity of the left humerus. The rest of the x-rays were negative for fracture or dislocation. The patient did develop a hematoma of the left breast with marked ecchymosis. The patient was seen in consultation from medical oncology on 332. She wishes a bilateral mastectomy. They are in concurrence with this, she was wishes this to be done despite bite any results from genetic testing. She is not interested in reconstruction and has declined seen a plastic surgeon. caffeine: 2 cups of coffee/day nicotine: none chocolate: occasional hormones: short time after total hysterectomy BCP: none Family History: 2 sisters: bilateral breast removed/ breast cancer; uncertain if cancer in both breast; sisters were in their 40's or 50's when diagnosed mother: breast cancer in 70's paternal aunt: breast cancer Hormonal History: menarche: 12 M1, breast fed: no, age at first : 19 menopause: total hysterectomy at 39 hormones: after WILDER 1 year Surgical history: Total abdominal hysterectomy done for endometriosis gallbladder appy orthopediac left hip total, right knee total,left hip redone, right hip left knee heart cath Medical History: Hypertension Hyperlipidemia Osteoarthritis Social History: nicotine: none alcohol: none drugs: none - Constitutional Constitutional: Denies chills, Denies fever - EENT Comment: beginning of macular degeneration, bilateral cataracts Eyes: denies blurred vision, denies pain Ears: deny: decreased hearing, tinnitus Ears, nose, mouth and throat: Denies headache, Denies sore throat - Breasts Breasts: bilateral: as per HPI - Cardiovascular Cardiovascular: Denies chest pain, Denies shortness of breath - Respiratory Respiratory: Denies cough - Gastrointestinal Gastrointestinal: Denies abdominal pain, Denies diarrhea, Denies nausea, Denies vomiting - Genitourinary (Female) Genitourinary: Denies dysuria, Denies hematuria - Menstruation Menstruation: Reports post hysterectomy - Musculoskeletal Comment: rotator cuff surgery, uses a wheel chair uses ultram Musculoskeletal: Reports as per HPI - Integumentary Comment: dry skin - Neurological Comment: right hand numbness/carpel tunnel - Psychiatric Psychiatric: Denies anxiety, Denies depression - Endocrine Endocrine: Denies fatigue, Denies weight change - Hematologic/Lymphatic Comment: none - Allergic/Immunologic Allergic/Immunologic: Reports as per HPI Objective - Vital Signs Vital signs: Vital Signs Temp 98.6 F 07/28/21 14:38 Pulse 84 07/28/21 14:38 Resp 18 07/28/21 14:38 BP 125/81 07/28/21 14:38 Pulse Ox 98 07/28/21 14:38 Intake & Output 07/27/21 07/28/21 07/28/21 18:59 06:59 18:59 Weight 108.862 kg - Exam BMI 45.3 - Constitutional General appearance: Present: cooperative - EENT Eyes: Present: EOMI ENT: Present: hearing grossly normal - Neck Neck: Present: normal ROM - Respiratory Respiratory: bilateral: CTA - Cardiovascular Rhythm: regular Heart sounds: normal: S1, S2 - Gastrointestinal General gastrointestinal: Present: soft - Integumentary Integumentary Comment(s): echymosis left breast after falling - Musculoskeletal Musculoskeletal Comment(s): Patient is in a wheelchair - Psychiatric Psychiatric: Present: A&O x's 3, appropriate affect, intact judgment & insight - Additional findings Additional findings: Breast examination: BRA: 42B Inspection: Ecchymosis left breast Palpation: Right breast: Fanny upper outer quadrant area approximately 4.5-5 cm in size no other dominant masses or nodules of concern Right axilla: No adenopathy of concern Left breast: Ecchymosis throughout related to recent trauma Left axilla: No adenopathy of concern Assessment and Plan Assessment: Impression: Right breast T2 and 0 M0 G2 ER positive. Positive HER-2 negative mucinous carcinoma right breast PET scan negative, ultrasound core biopsy right axillary node negative Plan: Bilateral mastectomy, right sentinel node injection, right sentinel node biopsy, possible right axillary node dissection follow up one week prior to surgery secondary to trauma of left breast Note from Dr. Staton of [id number] reviewed CC: Dr. Yao
== END ==
LOC: WWCWWP 14:04
PROVIDERS: ATTEND Surgery
DX: C50.911 Malignant neoplasm of unspecified site of right female breast (principal); Z17.0 Estrogen receptor positive status [ER+]; I10 Essential (primary) hypertension; E78.5 Hyperlipidemia, unspecified; M19.90 Unspecified osteoarthritis, unspecified site; Z88.6 Allergy status to analgesic agent

== ENCOUNTER → 2021-08-25 | Outpatient (CLI) | payer MEDICARE ==
[2021-08-25 15:12] VITALS: BP 133/80; PULSE 88; RESP 18; TEMP 98
--- NOTE | 2021-08-25 15:58 | P.PN ---
Progress Note - Text Progress Note Date: 08/25/21 Erika is a 71-year-old white female status post bilateral mastectomy and right sentinel node biopsy. Pathology revealed in the right breast and invasive mucinous adenocarcinoma grade 2. All margins were negative. The sentinel lymph node was negative. The size of the tumor was 6 cm. The patient did well postoperatively. Her ALLA drains are putting out approximately 20 mL on each side for a 24-hour period for several days in a row. Physical exam: Lungs: Clear Heart: Regular rate and rhythm Incision bilateral clean and dry Impression: Bilateral mastectomy right breast moderately differentiated invasive mucinous adenocarcinoma proximally 6 cm in size all margins negative, closest margin 3 mm from superior margin. The patient had sentinel node biopsy which was negative. Plan: Remove donald Removed bilateral ALLA drains Appointment with medical and radiation oncology Follow-up. 4 months Patient to follow up sooner any questions or concerns CC: Dr. Yao
== END ==
LOC: WWCWWP 14:49
PROVIDERS: ATTEND Surgery
DX: C50.911 Malignant neoplasm of unspecified site of right female breast (principal); Z90.13 Acquired absence of bilateral breasts and nipples; Z88.6 Allergy status to analgesic agent

== ENCOUNTER → 2021-08-30 | Outpatient (CLI) | payer MEDICARE ==
--- NOTE | 2021-08-30 14:19 | P.PN ---
Progress Note - Text Progress Note Date: 08/30/21 The patient called that she had some drainage from the lateral aspect of her left mastectomy incision. She came in for evaluation today. There is some necrosis of the lateral approximately 1 inch of incision. With some minimal drainage. The no evidence seroma at this time. The incision was reinforced using 3-0 nylon suture after the patient had given informed consent. The right chest wall incision is clean and dry and healing well. The patient will follow up in two weeks for suture removal. As the problems are concerned she will be seen sooner. Impression: lateral aspect of incision with some drainage and necrosis Plan: reinforcement of lateral aspect of incision done follow up in 2 weeks Suture: The area of concern in the left mastectomy incision was prepped using Betadine. Several interrupteds nylon 30 sutures were placed to reinforce the incision. The patient tolerated the procedure with no difficulty. Informed consent was obtained.
[2021-08-30 15:23] VITALS: BP 122/74; PULSE 88; RESP 18; TEMP 98.4
== END ==
LOC: WWCWWP 12:00
PROVIDERS: ATTEND Surgery
DX: L76.82 Other postprocedural complications of skin and subcutaneous tissue (principal); Z90.12 Acquired absence of left breast and nipple

== ENCOUNTER → 2021-09-16 | Outpatient (CLI) | payer MEDICARE ==
--- NOTE | 2021-09-16 15:49 | P.PN ---
Progress Note - Text Progress Note Date: 09/16/21 Erika is a 71-year-old white female status post bilateral mastectomy and right sentinel node biopsy. Pathology revealed in the right breast and invasive mucinous adenocarcinoma grade 2. All margins were negative. The sentinel lymph node was negative. The size of the tumor was 6 cm. the patient was seen approximately 2 weeks ago with some drainage from the lateral aspect of the left incision. This has stopped at this time. Physical exam: Lungs: Clear Heart: Regular rate and rhythm Incision bilateral clean and dry, sutures removed lateral aspect of the incision on the left mastectomy site Impression: Bilateral mastectomy right breast moderately differentiated invasive mucinous adenocarcinoma about 6 cm in size all margins negative, closest margin 3 mm from superior margin. The patient had sentinel node biopsy which was negative. left breast: No evidence of any cancer Plan: Remove sutures Steri-Strips applied Appointment with medical and radiation oncology Follow-up. 4 months Patient to follow up sooner any questions or concerns CC: Dr. Yao
== END ==
LOC: WWCWWP 14:56
PROVIDERS: ATTEND Surgery
DX: C50.911 Malignant neoplasm of unspecified site of right female breast (principal); Z90.13 Acquired absence of bilateral breasts and nipples; Z88.6 Allergy status to analgesic agent

== ENCOUNTER → 2021-10-06 | Outpatient (CLI) | payer MEDICARE ==
--- NOTE | 2021-10-06 22:58 | BD ---
EXAMINATION TYPE: Axial Bone Density DATE OF EXAM: 10/06/2021 COMPARISON: 07/19/2015 CLINICAL HISTORY: 71 years year old Female. ICD-10 CODE: M85.9 OSTEOPENIA Height: 59.7 IN Weight: 236 LBS FRAX RISK QUESTIONS: History of Fracture in Adulthood: LT HUMERUS AGE 71 Secondary Osteoporosis: 3. Menopause before 45: TOTAL HYST AGE 36 RISK FACTORS HISTORY OF: Surgery to Hip(UNIQUE): RT HIP 2015 LT HIP 2014 Family History of Osteoporosis: YES MOTHER Active: LIMITED Diet low in dairy products/other sources of calcium: YES Postmenopausal woman: TOTAL HYST AGE 36 Take estrogen and/or progesterone medications: NOT NOW TOOK FOR 5 YEARS Lost more than 2 inches in height since high school: YES 05/10" MEDICATIONS: Additional Medications: VIT D, MULTI VIT, BLOOD PRESSURE MEDS, CHOLESTEROL MEDS, MUSCLE RELAXER, TRAM ADOL, TYLENOL, PRESERVISION, Additional History: BREAST CANCER EXAM MEASUREMENTS: Bone mineral densitometry was performed using the Syllabuster System. Bone mineral density as measured about the Lumbar spine is: ----- L1-L4(G/cm2): 1.068 T Score Values are as follows: ----- L1: -1.8 ----- L2: -2.2 ----- L3: -1.0 ----- L4: 0.4 ----- L1-L4: -0.9 Bone mineral density has: Increased 13.6% since study of: 07/19/2015 UNIQUE HIP REPLACEMENTS Bone mineral density about the L Wrist (g/cm2): 0.608 T Score values are as follows: -----Dist. R+U: -1.4 -----Prox. R+U: -1.5 -----Radius total: -1.1 Bone mineral density BASELINE IMPRESSION: Osteopenia (T Score between -2.5 and -1). There is slightly increased risk of fracture and the patient may be considered for treatment. Re-Screen 2-5 years. NOTE: T-SCORE=SD OF THE YOUNG ADULT MEAN.
== END | disposition home or self-care (01) ==
LOC: RADBDWWP 10:25
PROVIDERS: ATTEND Internal Medicine Hematology & Oncology
DX: M85.89 Other specified disorders of bone density and structure, multiple sites (principal); Z78.0 Asymptomatic menopausal state
CPT/HCPCS: 77080

== ENCOUNTER → 2021-12-19 | Outpatient (CLI) | payer MEDICARE ==
[2021-12-19 17:00] LABS: Appearance,BF Cloudy; Color,BF Red; RBC, Body Fluid 555500 /uL
[2021-12-19 17:01] LABS: Nucleated Cells, Body Fluid 4000 /uL
[2021-12-19 17:02] LABS: Mononuclear WBC,Body Fluid 6 %; Polynuclear WBC,Body Fluid 94 %; Total Cells Counted,Body Fluid 100
[2021-12-19 23:06] LABS: Synovial Fld Crystals None Seen (None Seen)
== END | disposition home or self-care (01) ==
LOC: LABWHC1 14:33
PROVIDERS: ATTEND Orthopaedic Surgery
DX: Z48.89 Encounter for other specified surgical aftercare (principal); M25.561 Pain in right knee; Z96.651 Presence of right artificial knee joint
CPT/HCPCS: 36415; 85379; 85652; 86140; 87070; 87075; 87205; 89050; 89060

== ENCOUNTER → 2021-12-22 | Outpatient (CLI) | payer MEDICARE ==
[2021-12-22 13:08] VITALS: BP 155/67; PULSE 100; RESP 17; TEMP 98.9
--- NOTE | 2021-12-22 13:28 | P.PN ---
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 The patient did not have radiation therapy post procedure. She is on Aromasin. She has no complaints related to her chest blanca. She is complaining of some pain in her right knee following surgery of the knee about one month ago. She also had a MRSA infection. Note: 10-07-21 from radiation oncology reviewed oncotype score 7 caffeine: 2 cups of coffee/day nicotine: none chocolate: occasional hormones: short time after total hysterectomy BCP: none Family History: 2 sisters: bilateral breast removed/ breast cancer; uncertain if cancer in both breast; sisters were in their 40's or 50's when diagnosed mother: breast cancer in 70's paternal aunt: breast cancer Hormonal History: menarche: 12 M1, breast fed: no, age at first : 19 menopause: total hysterectomy at 39 hormones: after WILDER 1 year Surgical history: Total abdominal hysterectomy done for endometriosis gallbladder appy orthopediac left hip total, right knee total,left hip redone, right hip left knee heart cath Medical History: Hypertension Hyperlipidemia Osteoarthritis Social History: nicotine: none alcohol: none drugs: none - Constitutional Constitutional: Denies chills, Denies fever - EENT Comment: beginning of macular degeneration, bilateral cataracts Eyes: denies blurred vision, denies pain Ears: deny: decreased hearing, tinnitus Ears, nose, mouth and throat: Denies headache, Denies sore throat - Breasts Breasts: bilateral: as per HPI - Cardiovascular Cardiovascular: Denies chest pain, Denies shortness of breath - Respiratory Respiratory: Denies cough - Gastrointestinal Gastrointestinal: Denies abdominal pain, Denies diarrhea, Denies nausea, Denies vomiting - Genitourinary (Female) Genitourinary: Denies dysuria, Denies hematuria - Menstruation Menstruation: Reports post hysterectomy - Musculoskeletal Comment: rotator cuff surgery, uses a wheel chair uses ultram Musculoskeletal: Reports as per HPI - Integumentary Comment: dry skin - Neurological Comment: right hand numbness/carpel tunnel - Psychiatric Psychiatric: Denies anxiety, Denies depression - Endocrine Endocrine: Denies fatigue, Denies weight change - Hematologic/Lymphatic Comment: none - Allergic/Immunologic Allergic/Immunologic: Reports as per HPI - Constitutional Constitutional: Denies chills, Denies fever - EENT Comment: Beginning of macular degeneration, bilateral cataracts Ears: deny: decreased hearing, tinnitus - Breasts Breasts: bilateral: as per HPI - Cardiovascular Cardiovascular: Denies chest pain, Denies shortness of breath - Respiratory Respiratory: Denies cough - Gastrointestinal Gastrointestinal: Denies abdominal pain, Denies diarrhea, Denies nausea, Denies vomiting - Genitourinary (Female) Genitourinary: Denies dysuria, Denies hematuria - Menstruation Menstruation: Reports post hysterectomy - Musculoskeletal Comment: Rotator cuff surgery, uses a wheelchair, uses Ultram - Integumentary Comment: Dry skin - Neurological Comment: Right hand numbness/carpal tunnel - Psychiatric Psychiatric: Denies anxiety, Denies depression - Endocrine Endocrine: Denies fatigue, Denies weight change - Hematologic/Lymphatic Comment: None - Allergic/Immunologic Allergic/Immunologic: Reports as per HPI Objective - Constitutional General appearance: Present: cooperative - EENT Eyes: Present: EOMI ENT: Present: hearing grossly normal - Neck Neck: Present: normal ROM - Respiratory Respiratory: bilateral: CTA - Cardiovascular Rhythm: regular Heart sounds: normal: S1, S2 - Integumentary Integumentary: Present: normal turgor - Musculoskeletal Musculoskeletal Comment(s): wheel chair dependant - Psychiatric Psychiatric: Present: A&O x's 3, appropriate affect, intact judgment & insight - Additional findings Additional findings: Chest wall: right chest wall: No evidence of recurrent cancer Right axilla: No adenopathy of concern Left chest wall: No lesions of concern Left axilla: No adenopathy of concern Assessment and Plan Assessment: Impression: No evidence of recurrent right breast cancer Patient tolerating Aromasin Patient with a right knee infection surgery is going to be in the near future for this Plan: Continue Aromasin Follow-up here in 4 months Continue treatment with orthopedic surgeon regarding right knee CC: Dr. Yao
== END ==
LOC: WWCWWP 12:53
PROVIDERS: ATTEND Surgery
DX: Z08 Encounter for follow-up examination after completed treatment for malignant neoplasm (principal); Z85.3 Personal history of malignant neoplasm of breast; M00.9 Pyogenic arthritis, unspecified; Z90.13 Acquired absence of bilateral breasts and nipples; I10 Essential (primary) hypertension; E78.5 Hyperlipidemia, unspecified; M19.90 Unspecified osteoarthritis, unspecified site

== ENCOUNTER 2021-12-30 12:00 | Inpatient (IN) | payer MEDICARE ==
[2022-01-05] MEDS ORDERED: ONDANSETRON 4 MG/2 ML VIAL IVP PRN ×2 (05:00→18:07)
[2022-01-05] MEDS ORDERED: ACETAMINOPHEN TAB 500 MG TAB PO PRN (05:00)
[2022-01-05] MEDS ORDERED: TRANEXAMIC ACID IN NACL,ISO-OS 1,000 MG in SALINE 1 100ML.BAG IVPB PRN ×2 (05:00)
[2022-01-05] MEDS ORDERED: LIDOCAINE 1% (10MG/ML) FOR IV START INTRADERMA PRN ×2 (05:59)
[2022-01-05] MEDS ORDERED: HYDROmorphone 0.5 MG/0.5 ML SYRINGE IVP PRN ×4 (05:59→18:07)
[2022-01-05] MEDS ORDERED: DEXAMETHASONE SOD PHOSPHATE 4 MG/ML 1 ML VIAL IV ONE (05:59)
[2022-01-05] MEDS ORDERED: ONDANSETRON 4 MG/2 ML VIAL IVP ONE (05:59)
[2022-01-05] MEDS ORDERED: FAMOTIDINE 20 MG/2 ML VIAL IVP PRN (06:00)
[2022-01-05] MEDS ORDERED: DEXAMETHASONE SOD PHOSPHATE 10 MG/ML 1 ML VIAL IV PRN (06:00)
[2022-01-05] MEDS ORDERED: oxyCODONE ER 10 MG TAB.ER.12H PO PRN (06:00)
[2022-01-05] MEDS ORDERED: DOCUSATE 100 MG CAP PO PRN (06:00)
[2022-01-05] MEDS ORDERED: KETOROLAC 15 MG/ML 1 ML VIAL IVP PRN (06:00)
[2022-01-05] MEDS: LACTATED RINGERS 1,000 ML IV SCH ×2 (11:45→19:57)
[2022-01-05] MEDS ORDERED: fentaNYL (PF) 50 MCG/ML 2 ML AMP ONE (13:11)
[2022-01-05] MEDS ORDERED: PROPOFOL 10 MG/ML 20 ML VIAL IV ONE (13:11)
[2022-01-05] MEDS ORDERED: KETAMINE 10 MG/ML 20 ML VIAL ONE (13:11)
[2022-01-05] MEDS ORDERED: MIDAZOLAM 2 MG/2 ML VIAL ONE (13:11)
[2022-01-05] MEDS ORDERED: NEOSTIGMINE 1 MG/ML 10 ML VIAL ONE (13:11)
[2022-01-05] MEDS ORDERED: LIDOCAINE 2% INJ 20 MG/ML (2 ML VIAL) ONE (13:11)
[2022-01-05] MEDS ORDERED: SUCCINYLCHOLINE CHLORIDE 200 MG/10 ML VIAL IV ONE (13:11)
[2022-01-05] MEDS ORDERED: HYDROmorphone (PF) 1 MG/ML ONE (13:11)
[2022-01-05] MEDS ORDERED: ROCURONIUM 10 MG/ML (5 ML VIAL) IV ONE (13:11)
[2022-01-05] MEDS ORDERED: GLYCOPYRROLATE 0.2 MG/ML 2 ML VIAL ONE (13:11)
[2022-01-05] MEDS ORDERED: TRANEXAMIC ACID IN NACL,ISO-OS 1,000 MG/100 ML BAG ONE (13:11)
[2022-01-05] MEDS ORDERED: LACTATED RINGERS 1,000 ML IV ONE ×2 (14:33→17:20)
[2022-01-05] MEDS: ROPIVACAINE/EPI/CLONIDINE/KET 50 ML SYRINGE MISCELLANE PRN ×2 (15:48→17:05)
[2022-01-05] MEDS ORDERED: VANCOMYCIN 1,000 MG VIAL MISCELLANE ONE ×2 (16:26→17:09)
[2022-01-05] MEDS ORDERED: TOBRAMYCIN SULFATE 1.2 GM VIAL MISCELLANE ONE (17:09)
[2022-01-05] MEDS ORDERED: NALOXONE 0.4 MG/ML 1 ML VIAL IV PRN (18:07)
[2022-01-05] MEDS ORDERED: HYDROcodone/APAP 5-325MG 1 EACH TAB PO PRN (18:07)
[2022-01-05] MEDS ORDERED: hydrOXYzine pamoate 25 MG CAP PO PRN (18:07)
[2022-01-05] MEDS ORDERED: VANCOMYCIN IV PER PHARMACY 1 EACH MISC MISCELLANE PRN (18:33)
--- NOTE | 2022-01-05 18:35 | P.OP ---
Date of Procedure: 01/05/22 Preoperative Diagnosis: 1. Periprosthetic joint infection, right knee with draining sinus tract 2. 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 BMI 45 4. History of breast cancer 5. Kidney disease Postoperative Diagnosis: Same Procedure(s) Performed: 1. Complex removal of prosthesis (includes placement of antibiotic cement/spacer), right knee 2. Resection of draining sinus, 1 cm 3. Fabrication and insertion of nonbiodegradable drug delivery implant, articulating spacer, right knee 4. Irrigation and excisional debridement of subcutaneous tissue, muscle, and bone and thigh, knee and tibia with radical synovectomy and 12L saline pulsatile mechanical lavage 5. Extensile exposure with extended surgical time, 30 cm incision 6. Application of negative pressure dressing, centimeter 30 cm, less than 50 cm Modifier 22 for increased procedural complexity This operation required significantly more time, work, and procedural complexity than a standard primary or revision total joint arthroplasty. Specifically, the prior traumatic changes and/or surgical procedure left a significantly altered surgical field with resultant scar tissue, adhesions, and altered anatomy that required a longer and more difficult and complex surgical dissection. This patient required: Extensile exposure requiring meticulous and extensive debridement due to prior failed surgery and contractures Technical he demanding removal of prior hardware Significantly prolonged operative time Increased BMI (45) and challenging body habitus All of the above resulted in a physically and medically challenging operative procedure that my professional opinion necessitates a 30% increase above standard the schedule Implants: Size #4 PS Sanchez triathlon femoral component, size #5, 13 mm Sanchez TS tibial insert Anesthesia: PERRY Surgeon: Ray Ro Production Pattern Maker #1: Scooby Trujillo Estimated Blood Loss (ml): 400 IV fluids (ml): 1,200 Urine output (ml): 400 Pathology: other (Multiple deep cultures) Condition: stable Disposition: PACU Indications for Procedure: The patient is a very pleasant 71-year-old female with multiple medical problems and a BMI of 45 who is had ongoing issues with her right knee. She previously underwent a primary total knee replacement in this community by a general orthopedist with [facility]. She went on to develop severe arthrofibrosis requiring a revision knee arthroplasty by Dr. Mcknight in [place]. She had ongoing problems with stiffness and recently underwent a right knee arthroscopy by my partner Dr. Gonzalez. She developed a draining sinus tract from the anterolateral arthroscopy portal was referred to me for management 1 month after her surgery. At the time of my evaluation the patient had a draining sinus with purulent discharge. Her knee was aspirated and showed an elevated inflammatory cell count (4000 white blood cells, 94% PMNs), her cultures grew MRSA, and she had elevated inflammatory markers. Given the fact that she had cultures growing MRSA and a draining sinus tract I recommended a two-stage revision. She had stemmed implants in her knee and a right total hip arthroplasty. My recommendation was to remove her implants in place either an articulating or static spacer based on her bone quality. We discussed the potential risks and complications of surgery at length including but certainly not limited to risks from anesthesia, superficial infection, delayed wound healing, continued periprosthetic joint infection, recurrent infection, fracture, extensor mechanism disruption, damage to blood vessels or nerves, need for further surgery, DVT, PE, other medical complications, need of a knee fusion, need an amputation, and possibly loss of life or limb. Operative Findings: The knee was grossly infected with a draining sinus tract and purulence within the knee. Description of Procedure: The patient's identified in preoperative holding and the correct right leg was marked with my initials. I reviewed the consent form with the patient and . All of their questions were answered. The patient was brought back to the operating room by anesthesia. She was positioned on the OR table where general anesthetic and preoperative antibiotics were given. A Mcneil catheter was placed. All bony prominences were well-padded. The right leg was then prepped and draped in the standard sterile fashion. Prior to starting surgery timeout was performed identifying the correct patient, operative extremity, and procedure. The patient's leg was then elevated, exsanguinated with an Esmarch bandage, and the tourniquet was inflated to 250 mmHg. I began by exposing the knee. Her prior surgical incision was marked out and extended both proximally and distally to find normal soft tissue planes. She was also noted to have a nonhealing draining sinus track from the anterolateral arthroscopy portal. The anterolateral sinus track was ellipsed. Skin incision over the anterior knee was made with a scalpel and dissection was carried down carefully through subcutaneous tissue. Identified the fascia proximally and then raised subcutaneous flaps medially and laterally deep to the fascia. Her soft tissue was edematous with adhesions and a thick layer of adipose tissue making the dissection difficult. A medial parapatellar arthrotomy was performed. There was a large campoverde of preoperative material which was swabbed and sent for culture. The medial and lateral gutters were then debrided and tissue was sent for culture. Full-thickness flaps were used to re-create the gutters down to the septum. Due to the prior surgery and adhesions exposure was difficult requiring extended time. The polyethylene liner was carefully removed. The distal femur was then circumferentially exposed. Reciprocating saws were then used to debond the implant cement interface. Using an offset bone tamp and a mallet the femoral component was removed with minimal bone loss. Remaining cement was removed with an acorn tipped bur. I then broke through the pedestal proximally and reamed for debridement. Attention was then turned to the tibia. I carefully subluxed the tibia anterior to the femur and circumferentially exposed the tibial baseplate which required extended time and effort due to adhesions within the knee. I then carefully exposed the tibia and debonded the implant cement interface with a reciprocating saw. I then used an offset bone tamp to carefully remove the tibial baseplate and stem. The remaining cement was then removed with an acorn bur and the canal was reamed for debridement. Attention was then turned to the patellar button which was exposed and removed with a sagittal saw. The lug holes were debrided with an acorn tipped bur. The wound was then thoroughly irrigated with 3 L of sterile saline using pulsatile lavage. An extensive synovectomy of the medial gutter, lateral gutter, and posterior knee was then performed to thoroughly debride the knee. I then trialed with a size #4 femur and a size 5 tibial baseplate. Once the implants felt relatively well balanced final implants were dispensed to the back table on the clean side including a size #4 PS femur, a size #5 all poly-TS liner measuring 13 mm. The knee was then soaked with a dilute Betadine rinse for 3-5 minutes. The knee was then irrigated with 3 L of sterile saline using pulsatile lavage. The knee was then soaked with a dilute acetic acid for 3-5 minutes. The knee was then irrigated with 3 L of sterile saline using pulsatile lavage. The knee was then soaked with a dilute peroxide solution for 3-5 minutes. The knee was then irrigated with 3 L of sterile saline using pulsatile lavage. At this point all surgical per dispensed broke scrub to proceed with the clean portion of the procedure. New drapes were applied, new instruments dispensed, and the right leg was reprepped. Once on the clean side the knee was irrigated with 3 L of sterile saline using style lavage. Antibiotic cement containing tobramycin was dispensed and 4 g of vancomycin per bag of cement was mixed. Dowels were made for the femur and tibia. The dowels were placed into the canals of both the femur and tibia. The tibia polyethylene liner was loosely cemented in place followed by the femoral component. The knee was held in extension until the cement had hardened. The wound was then thoroughly irrigated. 2 g of vancomycin powder 1 g of tobramycin outer was placed deep within the wound. The wound was then closed in layers using all monofilament suture. The skin was reinforced with nylons. An incisional wound VAC was placed over the incision and sinus tract. I verified that all instrument, sponge, and sharp counts were correct. Once the drapes were taken down a dressing was applied including a web roll and Enoch wrap followed by a knee immobilizer. The patient was then awoken from her anesthetic, transferred from the or table to a gurney, and brought to recovery having tolerated the procedure well. Scooby Trujillo PA-C was required as a skilled kitchen assistant due to the complexity of the surgery for patient positioning, surgical exposure, retraction, placement of implants, closure of wounds. Plan: The patient will be admitted under my care with consultations to infectious disease and internal medicine. She will need IV antibiotics via a PICC line per infectious disease. Deep cultures are pending. She will remain toe-touch weightbearing on her right leg with a knee immobilizer on at all times until her incisions have healed. She'll need her wound VAC removed in one week. She'll ultimately need a second stage revision if she clears her infection. Both the patient and her understand the high risk of continued issues.
--- NOTE | 2022-01-05 18:44 | XR ---
EXAMINATION TYPE: XR knee limited RT DATE OF EXAM: 01/05/2022 6:34 PM INDICATION: Patient age:Female; 71 years old; Reason for study: Evaluation for Postop abnormality and alignment; COMPARISON: None. TECHNIQUE: The right knee(s) was examined in projections. frontal, lateral FINDINGS: Right knee arthroplasty hardware removal and subsequent antibiotic infused cement placement. New plac ement of metallic rods within the distal femur and proximal tibia. There is no evidence of acute frac ture. Opacities projected in the suprapatellar joint may represent joint bodies. There is femur osteo phyte formation. The alignment appears near-anatomic and appropriate. IMPRESSION: 1. Status post arthroplasty revision changes with antibiotic infused cement placement. Appropriate a lignment of the knee. 2. No evidence of fracture.
[2022-01-05] MEDS ORDERED: VANCOMYCIN 1,750 MG in SODIUM CHLORIDE 0.9% 500 ML 500 ML IVPB ONE (19:30)
[2022-01-05] MEDS: SENNOSIDES-DOCUSATE SODIUM 1 EACH TAB PO SCH (22:06)
[2022-01-05] MEDS: ASPIRIN 81 MG PO SCH (22:06)
[2022-01-05] MEDS: HYDROmorphone 0.5 MG/0.5 ML SYRINGE IVP PRN (22:07)
[2022-01-05] MEDS: HYDROcodone/APAP 5-325MG 1 EACH TAB PO PRN (22:07)
[2022-01-06] MEDS: HYDROmorphone 0.5 MG/0.5 ML SYRINGE IVP PRN (04:10)
[2022-01-06] MEDS: LACTATED RINGERS 1,000 ML IV SCH ×2 (06:01)
[2022-01-06 07:43] LABS: Basophils # (A) 0.1 k/uL (0-0.2); Basophils % (A) 0 %; Eosinophils # (A) 0.1 k/uL (0-0.7); Eosinophils % (A) 0 %; HCT 27.5 % (34.0-46.0); HGB 8.7 gm/dL (11.4-16.0); Hypochromasia Moderate; Lymphocytes # (A) 1.2 k/uL (1.0-4.8); Lymphocytes % (A) 8 %; MCH 30.8 pg (25.0-35.0); MCHC 31.7 g/dL (31.0-37.0); MCV 97.2 fL (80.0-100.0); Mean Platelet Volume 8.7; Monocytes # (A) 1.1 k/uL (0-1.0); Monocytes % (A) 7 %; Neutrophils # (A) 12.8 k/uL (1.3-7.7); Neutrophils % (A) 83 %; Platelet Count 238 k/uL (150-450); RBC 2.83 m/uL (3.80-5.40); RDW 14.9 % (11.5-15.5); WBC 15.5 k/uL (3.8-10.6)
[2022-01-06] MEDS: HYDROcodone/APAP 5-325MG 1 EACH TAB PO PRN ×3 (07:53→18:18)
[2022-01-06] MEDS: ASPIRIN 81 MG PO SCH ×2 (07:54→22:53)
[2022-01-06] MEDS: ATORVASTATIN 10 MG TAB PO SCH (14:47)
[2022-01-06] MEDS: MULTIVITAMINS, THERA 1 EACH TAB PO SCH (14:47)
[2022-01-06] MEDS: VIT A,C & E-LUTEIN-MINERALS 1 EACH TAB PO SCH ×2 (14:47→22:52)
[2022-01-06] MEDS: amLODIPine 10 MG TAB PO SCH (14:47)
[2022-01-06] MEDS: lisinopriL 20 MG TAB PO SCH (14:47)
[2022-01-06] MEDS: ENOXAPARIN 40 MG/0.4 ML SYRINGE SQ SCH (14:48)
--- NOTE | 2022-01-06 14:58 | P.PN ---
Subjective Progress Note Date: 01/06/22 This patient is a 71-year-old female who is status-post right knee I&D, removal of prosthesis, with insertion of articulating space on 01/05/[address] Ro. Today is post-operative day #1. Patient is examined bedside with Dr. Ro. She is currently up to the bedside chair. She complains of moderate pain in the right knee. She has no additional complaints at this time. Vital signs stabel. Objective - Vital Signs Vital signs: Vital Signs Temp 98.7 F 01/06/22 14:00 Pulse 96 01/06/22 14:00 Resp 20 01/06/22 14:00 BP 163/71 01/06/22 14:00 Pulse Ox 97 01/06/22 14:00 FiO2 Intake & Output 01/05/22 01/06/22 01/06/22 18:59 06:59 18:59 Intake Total 2300 1160 Output Total 650 475 425 Balance 1650 685 -425 Weight 107.05 kg Intake: IV 2300 Intake, IV Titration 200 Amount Lactated Ringers 1,000 ml 200 @ 20 mls/hr IV .Q24H [facility] Rx#:[id number] Oral 960 Output: Urine 250 475 425 Uretheral (Mcneil) 400 425 Estimated Blood Loss 400 Other: Voiding Method Indwelling Catheter Indwelling Catheter - Exam On examination, patient is sitting up in the bedside chair in no apparent distress. Family is bedside. She is alert and oriented 3. On inspection of her right knee, there is a knee immobilizer in place. Prevena wound VAC is in place with a good seal and is functioning properly. Motor and sensory function is intact of the right lower extremity. She has good strength and [id number] of the right ankle and toes. - Labs CBC & Chem 7: 01/06/22 05:40 01/06/22 05:40 Labs: Abnormal Lab Results - Last 24 Hours (Table) 01/06/22 01/06/22 Range/Units 05:40 05:40 WBC 15.5 H (3.8-10.6) k/uL RBC 2.83 L (3.80-5.40) m/uL Hgb 8.7 L (11.4-16.0) gm/dL Hct 27.5 L (34.0-46.0) % Neutrophils # 12.8 H (1.3-7.7) k/uL Monocytes # 1.1 H (0-1.0) k/uL Creatinine 1.16 H (0.52-1.04) mg/dL Microbiology - Last 24 Hours (Table) 01/05/22 17:28 Gram Stain - Preliminary Knee - Right Tissue Culture - Preliminary 01/05/22 17:30 Gram Stain - Preliminary Knee - Right Wound Culture - Preliminary 01/05/22 17:31 Gram Stain - Preliminary Knee - Right Wound Culture - Preliminary 01/05/22 17:29 Gram Stain - Preliminary Knee - Right Tissue Culture - Preliminary 01/05/22 17:28 Anaerobic Culture - Preliminary Knee - Right 01/05/22 17:31 Anaerobic Culture - Preliminary Knee - Right 01/05/22 17:30 Anaerobic Culture - Preliminary Knee - Right 01/05/22 17:29 Anaerobic Culture - Preliminary Knee - Right Assessment and Plan Assessment: Status-post right knee I&D, removal of prosthesis, with insertion of articulating space on 01/05/22. Post-operative day #1. Plan: - Toe-touch weightbearing right knee with a walker. Physical therapy for gait and balance training. - Keep knee immobilizer in place at all times. No [id number] of the right knee at this time. Keep Prevena wound VAC in place. - Pain management as needed. - Aspirin 81mg BID x 4 weeks for DVT prophylaxis. - Infectious disease has been consulted for antibiotic recommendations. Intra- op cultures pending. - Medical management per internal medicine team. - Case management consulted for discharge planning.
[2022-01-06] MEDS: VANCOMYCIN 1,750 MG in SODIUM CHLORIDE 0.9% 500 ML 500 ML IVPB SCH (17:20)
--- NOTE | 2022-01-06 18:21 | P.CONS ---
History of Present Illness - Reason for Consult Consult date: 01/06/22 Medical management Requesting physician: Ray Ro - Chief Complaint Right knee surgery - History of Present Illness This is a pleasant 71-year-old patient who follows with Dr. Yao. Chronic stable medical conditions include hypertension, hyperlipidemia, osteoarthritis, history of bilateral mastectomy for breast cancer. About 5 years ago patient had right total knee arthroplasty. About 3 years ago patient had a revision arthroplasty. Then in November of this year patient had scar tissue removed by Dr. Gonzalez. Following that patient started having infections. Did receive 2 courses of Bactrim was diagnosed to have MRSA. She was then referred to Dr. Ro. Patient was just completing a course of doxycycline. Denies any fever or chills. Appetite is fair. Yesterday patient underwent complete removal of prosthesis is in the placement of antibiotic cement/pacer. She had a draining sinus that was removed. Also excision debridement of the subcutaneous tissue muscle 1 and thyroid. Including radical thyroidectomy. Patient has a local wound VAC. Patient this morning sitting up in a chair. at the bedside. No nausea vomiting. Review of systems: GEN.: Tired EYES: None HEENT: None NECK: None RESPIRATORY: None CARDIOVASCULAR: None GASTROINTESTINAL: None GENITOURINARY: None MUSCULOSKELETAL: Joint pains LYMPHATICS: None HEMATOLOGICAL: None PSYCHIATRY: None NEUROLOGICAL: None Past medical history to include: Hypertension, hyperlipidemia, osteoarthritis, infected right knee joint, breast cancer treated with bilateral mastectomy 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 Physical examination: VITAL SIGNS: 98.8, 82, 20, 142/66, 97% on 2 L] GENERAL: BMI 44.6, sitting up in a chair reclining comfortable. EYES: Pupils equal. Conjunctiva normal. HEENT: External appearance of nose and ears normal, oral cavity grossly normal. NECK: JVD not raised; masses not palpable. HEART: First and second heart sounds are normal; no edema. LUNGS: Respiratory rate normal; clear to auscultation. ABDOMEN: Soft, nontender, liver spleen not palpable, no masses palpable. PSYCH: Alert and oriented x3; mood and affect normal. MUSCULOSKELETAL:No Clubbing/cyanosis;muscles-grossly intact. Dressing over the right knee. With the wound VAC. Evidence of OA NEUROLOGICAL: Cranial nerves grossly intact; no facial asymmetry, power and sensation grossly intact. LYMPHATICS: No lymph nodes palpable in the axilla and neck INVESTIGATIONS, reviewed in the clinical context: WBC 15.5 hemoglobin 8.7 platelets 238 creatinine 1.16 Assessment and plan: -Infected revision right total knee arthroplasty, hardware was REMOVED. Placement of antibiotics pacer. Has a wound VAC in place. IV vancomycin. IV ceftriaxone. -Primary osteoarthritis multiple joints bilaterally Pain medications as needed -Essential hypertension Zestril 20 mg a day -Hyperlipidemia Lipitor 10 mg a day -Leukocytosis from infected right knee joint now removed -Normocytic anemia. Likely from chronic infection. Check iron studies, B12. 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 Patient continues using cane/walker as determined to be safe IV antibiotics. Resume home medications. Repeat CBC CMP in the morning. Check UA given abnormal creatinine. Kidney Ultrasound. Care was discussed with the patient and at the bedside. Questions answered. Past Medical History Past Medical History: Hyperlipidemia, Hypertension, Osteoarthritis (OA), Skin Disorder Additional Past Medical History / Comment(s): RIGHT KNEE WOUND, DRAINING SANGUINOUS, + MRSA CULTURE. ARTHRITIS LEFT HIP AND BACK. History of Any Multi-Drug Resistant Organisms: MRSA Year Discovered:: 12/09/21 MDRO Source:: Right Knee Past Surgical History: Appendectomy, Breast Surgery, Cholecystectomy, Heart Catheterization, Hysterectomy, Joint Replacement, Orthopedic Surgery, Tonsille ctomy Additional Past Surgical History / Comment(s): RIGHT KNEE ARTHROSCOPY @ OA IN NOVEMBER 2021, THEN MRSA. 08/16/21, BILATERAL SIMPLE MASTECTOMY (NO CHEMO OR RADIATION REQUIRED). RT TOTAL SHOULDER. RIGHT TOTAL KNEE (TANIA) TOTAL RIGHT HIP, TOTAL LEFT HIP (09/2014), AND TOTAL LEFT KNEE ALL DONE BY LORNA AT [facility]. Past Anesthesia/Blood Transfusion Reactions: No Reported Reaction Additional Past Anesthesia/Blood Transfusion Reaction / Comm: SISTER=PONV Past Psychological History: No Psychological Hx Reported Smoking Status: Never smoker Past Alcohol Use History: None Reported Past Drug Use History: None Reported - Past Family History Mother Family Medical History: Pulmonary Embolus Sister(s) Family Medical History: Cancer, Hyperlipidemia Additional Family Medical History / Comment(s): TWO SISTERS HAD BREAST CANCER. Medications and Allergies Home Medications Medication Instructions Recorded Confirmed Type amLODIPine BESYLATE/BENAZEPRIL 1 cap PO QAM 09/21/14 01/05/22 History [Lotrel 10-20 MG] Multivitamin/Iron/Folic Acid 1 cap PO DAILY 05/23/21 01/05/22 History [Centrum Women Tablet] methocarbamoL [Robaxin-750] 750 mg PO HS 05/23/21 01/05/22 History Rosuvastatin Calcium [Crestor] 5 mg PO QAM 07/08/21 01/05/22 History Acetaminophen Tab [Tylenol] 500 mg PO Q6H 07/28/21 01/05/22 History Cholecalciferol [Vitamin D3 (25 50 mcg PO DAILY 08/15/21 01/05/22 History Mcg = 1000 Iu)] Vit C/E/Zn/Coppr/Lutein/Zeaxan 1 each PO BID 08/15/21 01/05/22 History [Preservision Areds 2 Softgel] Doxycycline [Vibramycin] 100 mg PO BID 12/27/21 01/05/22 History Exemestane [Aromasin] 25 mg PO QAM 12/27/21 01/05/22 History Hydrocodone/Acetaminophen 1 tab PO Q6H PRN 12/27/21 01/05/22 History [Hydrocodone/Acetaminophen 5-325] traMADol HCL 50 mg PO HS 01/05/22 01/05/22 History Allergies Allergy/AdvReac Type Severity Reaction Status Date / Time ibuprofen [From Motrin] AdvReac Unknown ELEVATED Verified 01/05/22 11:15 CREATININE Physical Exam Vitals: Vital Signs Temp Pulse Pulse Pulse Resp BP Pulse Ox 01/06/22 08:00 98.8 F 82 20 142/66 97 01/06/22 01:29 98.4 F 94 17 125/58 99 01/05/22 20:15 78 16 155/70 97 01/05/22 20:00 88 14 174/68 98 01/05/22 19:45 88 14 163/68 97 01/05/22 19:30 97.8 F 89 16 113/78 97 01/05/22 19:15 84 16 136/64 98 01/05/22 19:00 83 18 133/60 98 01/05/22 18:45 84 16 137/61 96 01/05/22 18:29 91 18 134/63 99 01/05/22 18:20 16 99 01/05/22 18:14 82 16 133/60 99 01/05/22 17:59 97.9 F 71 16 123/60 98 01/05/22 11:24 97.3 F L 96 18 181/81 98 Intake and Output 01/05/22 01/06/22 01/06/22 22:59 06:59 14:59 Intake Total 730 680 Output Total 725 400 425 Balance 5 280 -425 Intake: IV 250 Intake, IV Titration 200 Amount Lactated Ringers 1,000 ml 200 @ 20 mls/hr IV .Q24H [facility] Rx#:[id number] Oral 480 480 Output: Urine 325 400 425 Uretheral (Mcneil) 400 425 Estimated Blood Loss 400 Other: Voiding Method Indwelling Catheter Indwelling Catheter Results CBC & Chem 7: 01/06/22 05:40 01/06/22 05:40 Labs: Abnormal Lab Results - Last 24 Hours (Table) 01/06/22 01/06/22 Range/Units 05:40 05:40 WBC 15.5 H (3.8-10.6) k/uL RBC 2.83 L (3.80-5.40) m/uL Hgb 8.7 L (11.4-16.0) gm/dL Hct 27.5 L (34.0-46.0) % Neutrophils # 12.8 H (1.3-7.7) k/uL Monocytes # 1.1 H (0-1.0) k/uL Creatinine 1.16 H (0.52-1.04) mg/dL Microbiology - Last 24 Hours (Table) 01/05/22 17:28 Gram Stain - Preliminary Knee - Right Tissue Culture - Preliminary 01/05/22 17:30 Gram Stain - Preliminary Knee - Right Wound Culture - Preliminary 01/05/22 17:31 Gram Stain - Preliminary Knee - Right Wound Culture - Preliminary 01/05/22 17:29 Gram Stain - Preliminary Knee - Right Tissue Culture - Preliminary 01/05/22 17:28 Anaerobic Culture - Preliminary Knee - Right 01/05/22 17:31 Anaerobic Culture - Preliminary Knee - Right 01/05/22 17:30 Anaerobic Culture - Preliminary Knee - Right 01/05/22 17:29 Anaerobic Culture - Preliminary Knee - Right
--- NOTE | 2022-01-06 19:27 | US ---
EXAMINATION TYPE: US renals and bladder DATE OF EXAM: 01/06/2022 COMPARISON: NONE CLINICAL HISTORY: renal failure. renal failure, known cysts, abn creatinine EXAM MEASUREMENTS: Right Kidney: 11.1 x 5.3 x 6.7 cm Left Kidney: 11.7 x 4.8 x 5.5 cm Right Kidney: 2.3 x 2.0 x 2.1cm simple cyst on superior pole seen, otherwise very limited views due t o gas and habitus Left Kidney: 3.7 x 3.5 x 3.5cm simple cyst on superior pole, cortical thinning Bladder: not distended, anne IMPRESSION: Bilateral renal cysts. No evidence of hydronephrosis. No evidence of solid renal mass.
[2022-01-06] MEDS: SENNOSIDES-DOCUSATE SODIUM 1 EACH TAB PO SCH (22:52)
[2022-01-06] MEDS: methocarbamoL 750 MG TAB PO SCH (22:52)
--- NOTE | 2022-01-06 23:00 | P.CONS ---
History of Present Illness - Reason for Consult Consult date: 01/06/22 Periprosthetic knee infection Requesting physician: Scooby Trujillo - Chief Complaint Pain swelling to the right knee area x weeks - History of Present Illness Patient is a 71-year-old female with a past medical history sniffing for breast cancer with bilateral mastectomy patient also history of right total knee replacement in 2014 patient apparently did have a history of injury to the right knee and the left shoulder and subsequently developing cellulitis and infection of the right knee area with the outpatient culture positive for MRSA with concern for the infected prosthesis patient was electively taken to the OR yesterday afternoon patient did have evidence of periprosthetic joint infection right knee with a draining sinus track patient is status post removal of the prosthesis I&D application of a wound VAC local cultures patient was started on vancomycin infectious disease was consulted for further management of antibiotic therapy. On today's evaluation that is 01-06-2022 patient denies having any fever or any chills, patient is breathing comfortably but denies having any chest pain or shortness of breath or cough no nausea no vomiting no abdominal pain and no diarrhea she has been complaining of pain to the right knee to be more of a sharp in nature about 7-8 out of 10 and no radiation and no drainage Review of Systems Positive point has been mentioned in the HPI rest of the systems are negative Past Medical History Past Medical History: Hyperlipidemia, Hypertension, Osteoarthritis (OA), Skin Disorder Additional Past Medical History / Comment(s): RIGHT KNEE WOUND, DRAINING SANGUINOUS, + MRSA CULTURE. ARTHRITIS LEFT HIP AND BACK. History of Any Multi-Drug Resistant Organisms: MRSA Year Discovered:: 12/09/21 MDRO Source:: Right Knee Past Surgical History: Appendectomy, Breast Surgery, Cholecystectomy, Heart Catheterization, Hysterectomy, Joint Replacement, Orthopedic Surgery, Tonsillectomy Additional Past Surgical History / Comment(s): RIGHT KNEE ARTHROSCOPY @ OA IN NOVEMBER 2021, THEN MRSA. 08/16/21, BILATERAL SIMPLE MASTECTOMY (NO CHEMO OR RADIATION REQUIRED). RT TOTAL SHOULDER. RIGHT TOTAL KNEE (TANIA) TOTAL RIGHT HIP, TOTAL LEFT HIP (09/2014), AND TOTAL LEFT KNEE ALL DONE BY LORNA AT [facility]. Past Anesthesia/Blood Transfusion Reactions: No Reported Reaction Additional Past Anesthesia/Blood Transfusion Reaction / Comm: SISTER=PONV Past Psychological History: No Psychological Hx Reported Smoking Status: Never smoker Past Alcohol Use History: None Reported Past Drug Use History: None Reported - Past Family History Mother Family Medical History: Pulmonary Embolus Sister(s) Family Medical History: Cancer, Hyperlipidemia Additional Family Medical History / Comment(s): TWO SISTERS HAD BREAST CANCER. Medications and Allergies Home Medications Medication Instructions Recorded Confirmed Type amLODIPine BESYLATE/BENAZEPRIL 1 cap PO QAM 09/21/14 01/05/22 History [Lotrel 10-20 MG] Multivitamin/Iron/Folic Acid 1 cap PO DAILY 05/23/21 01/05/22 History [Centrum Women Tablet] methocarbamoL [Robaxin-750] 750 mg PO HS 05/23/21 01/05/22 History Rosuvastatin Calcium [Crestor] 5 mg PO QAM 07/08/21 01/05/22 History Acetaminophen Tab [Tylenol] 500 mg PO Q6H 07/28/21 01/05/22 History Cholecalciferol [Vitamin D3 (25 50 mcg PO DAILY 08/15/21 01/05/22 History Mcg = 1000 Iu)] Vit C/E/Zn/Coppr/Lutein/Zeaxan 1 each PO BID 08/15/21 01/05/22 History [Preservision Areds 2 Softgel] Doxycycline [Vibramycin] 100 mg PO BID 12/27/21 01/05/22 History Exemestane [Aromasin] 25 mg PO QAM 12/27/21 01/05/22 History Hydrocodone/Acetaminophen 1 tab PO Q6H PRN 12/27/21 01/05/22 History [Hydrocodone/Acetaminophen 5-325] traMADol HCL 50 mg PO HS 01/05/22 01/05/22 History Allergies Allergy/AdvReac Type Severity Reaction Status Date / Time ibuprofen [From Motrin] AdvReac Unknown ELEVATED Verified 01/05/22 11:15 CREATININE Physical Exam Vitals: Vital Signs Temp Pulse Pulse Resp BP Pulse Ox 01/06/22 08:00 98.8 F 82 20 142/66 97 01/06/22 01:29 98.4 F 94 17 125/58 99 01/05/22 20:15 78 16 155/70 97 01/05/22 20:00 88 14 174/68 98 01/05/22 19:45 88 14 163/68 97 01/05/22 19:30 97.8 F 89 16 113/78 97 01/05/22 19:15 84 16 136/64 98 01/05/22 19:00 83 18 133/60 98 01/05/22 18:45 84 16 137/61 96 01/05/22 18:29 91 18 134/63 99 01/05/22 18:20 16 99 01/05/22 18:14 82 16 133/60 99 01/05/22 17:59 97.9 F 71 16 123/60 98 Intake and Output 01/05/22 01/06/22 01/06/22 22:59 06:59 14:59 Intake Total 730 680 Output Total 725 400 425 Balance 5 280 -425 Intake: IV 250 Intake, IV Titration 200 Amount Lactated Ringers 1,000 ml 200 @ 20 mls/hr IV .Q24H [facility] Rx#:[id number] Oral 480 480 Output: Urine 325 400 425 Uretheral (Mcneil) 400 425 Estimated Blood Loss 400 Other: Voiding Method Indwelling Catheter Indwelling Catheter GENERAL DESCRIPTION: Elderly female up in the chair, no distress. No tachypnea or accessory muscle of respiration use. HEENT: Shows Pallor , no scleral icterus. Oral mucous membrane is dry. No pharyngeal erythema or thrush NECK: Trachea central, no thyromegaly. LUNGS: Unlabored breathing. Clear to auscultation anteriorly. No wheeze or crackle. HEART: S1, S2, regular rate and rhythm. No loud murmur ABDOMEN: Soft, no tenderness , guarding or rigidity, no organomegaly EXTREMITIES: Right is currently dressed in OR dressing SKIN: No rash, no masses palpable. NEUROLOGICAL: The patient is awake, alert, oriented x3, mood and affect normal. Results CBC & Chem 7: 01/06/22 05:40 01/06/22 05:40 Labs: Abnormal Lab Results - Last 24 Hours (Table) 01/06/22 01/06/22 Range/Units 05:40 05:40 WBC 15.5 H (3.8-10.6) k/uL RBC 2.83 L (3.80-5.40) m/uL Hgb 8.7 L (11.4-16.0) gm/dL Hct 27.5 L (34.0-46.0) % Neutrophils # 12.8 H (1.3-7.7) k/uL Monocytes # 1.1 H (0-1.0) k/uL Creatinine 1.16 H (0.52-1.04) mg/dL Microbiology - Last 24 Hours (Table) 01/05/22 17:28 Gram Stain - Preliminary Knee - Right Tissue Culture - Preliminary 01/05/22 17:30 Gram Stain - Preliminary Knee - Right Wound Culture - Preliminary 01/05/22 17:31 Gram Stain - Preliminary Knee - Right Wound Culture - Preliminary 01/05/22 17:29 Gram Stain - Preliminary Knee - Right Tissue Culture - Preliminary 01/05/22 17:28 Anaerobic Culture - Preliminary Knee - Right 01/05/22 17:31 Anaerobic Culture - Preliminary Knee - Right 01/05/22 17:30 Anaerobic Culture - Preliminary Knee - Right 01/05/22 17:29 Anaerobic Culture - Preliminary Knee - Right Assessment and Plan (1) Septic joint of right knee joint Current Visit: Yes Status: Acute Code(s): M00.9 - PYOGENIC ARTHRITIS, UNSPECIFIED SNOMED Code(s): 225122882 Plan: 1patient with right knee septic arthritis in this patient who is status post excisional arthroplasty and antibiotic spacer placement with the outpatient culture positive for MRSA to be the likely pathogen with the OR cultures currently pending. 2vancomycin pharmacy to dose target trough of 15 while watching kidney function and vancomycin trough closely. 3patient will need a PICC line and outpatient IV antibiotic at least 6 weeks depending upon clinic response and weekly monitoring of blood work this was explained to the patient and the family we will follow on clinical condition and cultures to further adjust medication if needed Thank you for this consultation will follow this patient along with you Time with Patient: Greater than 30
[2022-01-07] MEDS: HYDROcodone/APAP 5-325MG 1 EACH TAB PO PRN ×2 (03:06→09:01)
[2022-01-07] MEDS: LACTATED RINGERS 1,000 ML IV SCH (07:47)
[2022-01-07 08:47] LABS: HCT 25.4 % (34.0-46.0); HGB 8.1 gm/dL (11.4-16.0); Hypochromasia Slight; MCH 30.3 pg (25.0-35.0); MCHC 32.1 g/dL (31.0-37.0); MCV 94.3 fL (80.0-100.0); Mean Platelet Volume 8.4; Platelet Count 208 k/uL (150-450); RBC 2.69 m/uL (3.80-5.40); RDW 14.6 % (11.5-15.5)
[2022-01-07 08:59] LABS: ALT 50 U/L (4-34); AST 37 U/L (14-36); African American GFR (CKD) 60 (>60 ml/min/1.73 sqM); Albumin 2.7 g/dL (3.5-5.0); Albumin/Globulin Ratio 1.1; Alkaline Phosphatase 58 U/L (38-126); Anion Gap 7 mmol/L; Blood Urea Nitrogen 18 mg/dL (7-17); Calcium 8.5 mg/dL (8.4-10.2); Carbon Dioxide 25 mmol/L (22-30); Chloride 104 mmol/L (98-107); Globulin 2.5 g/dL; Glucose 113 mg/dL (74-99); Non-African American GFR(CKD) 52 (>60 ml/min/1.73 sqM); Potassium 4.4 mmol/L (3.5-5.1); Sodium 136 mmol/L (137-145); Total Bilirubin 0.3 mg/dL (0.2-1.3); Total Protein 5.2 g/dL (6.3-8.2)
[2022-01-07] MEDS: ATORVASTATIN 10 MG TAB PO SCH (09:01)
[2022-01-07] MEDS: MULTIVITAMINS, THERA 1 EACH TAB PO SCH (09:01)
[2022-01-07] MEDS: lisinopriL 20 MG TAB PO SCH (09:01)
[2022-01-07] MEDS: ASPIRIN 81 MG PO SCH ×2 (09:01→20:33)
[2022-01-07] MEDS: CHOLECALCIFEROL 25 MCG (1000 IU) TABLET PO SCH (09:01)
[2022-01-07] MEDS: amLODIPine 10 MG TAB PO SCH (09:01)
[2022-01-07] MEDS: ENOXAPARIN 40 MG/0.4 ML SYRINGE SQ SCH (09:01)
[2022-01-07] MEDS: VIT A,C & E-LUTEIN-MINERALS 1 EACH TAB PO SCH ×2 (09:08→20:33)
[2022-01-07 09:13] LABS: C Reactive Protein 8.2 mg/dL (<1.0)
[2022-01-07 09:17] LABS: Appearance,Urine Clear (Clear); Bilirubin,Urine Negative (Negative); Blood,Urine Negative (Negative); Color,Urine Light Yellow; Glucose,Urine (UA) Negative (Negative); Ketones,Urine Negative (Negative); Leukocyte Esterase,Urine Negative (Negative); Nitrite,Urine Negative (Negative); Protein,Urine Negative (Negative); Specific Gravity,Urine 1.011 (1.001-1.035); Urobilinogen,Urine <2.0 mg/dL (<2.0)
[2022-01-07 10:13] LABS: Erythrocyte Sedimentation Rate 77 mm/hr (0-20)
--- NOTE | 2022-01-07 10:31 | P.PN ---
Subjective Progress Note Date: 01/07/22 This patient is a 71-year-old female who is status-post right knee I&D, removal of prosthesis, with insertion of articulating space on 01/05/[address] Ro. Today is post-operative day #2. Patient is examined bedside this morning. She continues to complain of moderate pain in the knee. Patient was up to the bedside chair yesterday. She is remaining toe-touch weightbearing of the right knee. She otherwise has no new complaints or concerns at this time. Vital signs stable. Objective - Vital Signs Vital signs: Vital Signs Temp 99.1 F 01/07/22 08:00 Pulse 86 01/07/22 08:00 Resp 17 01/07/22 02:59 BP 144/70 01/07/22 08:00 Pulse Ox 98 01/07/22 08:00 FiO2 Intake & Output 01/06/22 01/07/22 01/07/22 18:59 06:59 18:59 Output Total 2024 Balance -2024 Output: Urine 2024 Uretheral (Mcneil) 1475 Other: Voiding Method Indwelling Catheter Indwelling Catheter Indwelling Catheter - Exam On examination, patient is sitting up in the bed in no apparent distress. She is alert and oriented 3. On inspection of her right knee, there is a knee immobilizer in place. Prevena wound VAC is in place with a good seal and is functioning properly. Motor and sensory function is intact of the right lower extremity. She has good strength and [id number] of the right ankle and toes. Dorsalis pedis pulse easily palpable, right lower extremity warm and well-perfused. - Labs CBC & Chem 7: 01/07/22 08:02 01/07/22 08:02 Labs: Abnormal Lab Results - Last 24 Hours (Table) 01/07/22 01/07/22 Range/Units 08:02 08:02 WBC 11.0 H (3.8-10.6) k/uL RBC 2.69 L (3.80-5.40) m/uL Hgb 8.1 L (11.4-16.0) gm/dL Hct 25.4 L (34.0-46.0) % ESR 77 H (0-20) mm/hr Sodium 136 L (137-145) mmol/L BUN 18 H (7-17) mg/dL Creatinine 1.07 H (0.52-1.04) mg/dL Glucose 113 H (74-99) mg/dL AST 37 H (14-36) U/L ALT 50 H (4-34) U/L C-Reactive Protein 8.2 H (<1.0) mg/dL Total Protein 5.2 L (6.3-8.2) g/dL Albumin 2.7 L (3.5-5.0) g/dL Microbiology - Last 24 Hours (Table) 01/05/22 17:28 Gram Stain - Preliminary Knee - Right Tissue Culture - Preliminary 01/05/22 17:29 Gram Stain - Preliminary Knee - Right Tissue Culture - Preliminary 01/05/22 17:31 Gram Stain - Preliminary Knee - Right Wound Culture - Preliminary 01/05/22 17:30 Gram Stain - Preliminary Knee - Right Wound Culture - Preliminary Assessment and Plan Assessment: Status-post right knee I&D, removal of prosthesis, with insertion of articula ting space on 01/05/22. Post-operative day #2. Plan: - Toe-touch weightbearing right knee with a walker. Physical therapy for gait and balance training. - Keep knee immobilizer in place at all times. No [id number] of the right knee at this time. Keep Prevena wound VAC in place. - Pain management as needed. - Aspirin 81mg BID x 4 weeks for DVT prophylaxis. - Infectious disease has been consulted for antibiotic recommendations. Intra- op cultures pending. - Medical management per internal medicine team. - Case management consulted for discharge planning. Anticipate discharge to rehab with PICC line.
[2022-01-07 10:43] LABS: Eosinophils # (M) 0.11 k/uL (0-0.7); Lymphocytes # (M) 2.64 k/uL (1.0-4.8); Neutrophils # (M) 7.15 k/uL (1.3-7.7); Neutrophils % (M) 65 %; Nucleated Red Blood Cells 0 /100 WBC (0-0); Total Cells Counted 100
[2022-01-07] MEDS: HYDROcodone/APAP 10-325MG 1 EACH TAB PO PRN ×3 (12:49→21:38)
--- NOTE | 2022-01-07 17:49 | P.PN ---
Progress Note - Text Progress Note Date: 01/07/22 - Chief Complaint Right knee surgery Hospital course: This is a pleasant 71-year-old patient who follows with Dr. Yao. Chronic stable medical conditions include hypertension, hyperlipidemia, osteoarthritis, history of bilateral mastectomy for breast cancer. About 5 years ago patient had right total knee arthroplasty. About 3 years ago patient had a revision arthroplasty. Then in November of this year patient had scar tissue removed by Dr. Gonzalez. Following that patient started having infections. Did receive 2 courses of Bactrim was diagnosed to have MRSA. She was then referred to Dr. Ro. Patient was just completing a course of doxycycline. Denies any fever or chills. Appetite is fair. Yesterday patient underwent complete removal of prosthesis is in the placement of antibiotic cement/pacer. She had a draining sinus that was removed. Also excision debridement of the subcutaneous tissue muscle 1 and thyroid. Including radical thyroidectomy. Patient has a local wound VAC. Patient this morning sitting up in a chair. at the bedside. No nausea vomiting. January 07: Up in a chair. Oral intake fair. Right knee pain better. IV ceftriaxone and IV vancomycin. Active Medications Hydrocodone Bitart/Acetaminophen (Hydrocodone/Apap 10-325mg 1 Each Tab) 1 each PO Q4HR PRN PRN Reason: Pain Last Admin: 01/07/22 17:00 Dose: 1 each Amlodipine Besylate (Amlodipine 10 Mg Tab) 10 mg PO QAM [facility] Last Admin: 01/07/22 09:01 Dose: 10 mg Aspirin (Aspirin 81 Mg) 81 mg PO BID [facility] Last Admin: 01/07/22 09:01 Dose: 81 mg Atorvastatin Calcium (Atorvastatin 10 Mg Tab) 10 mg PO QAM [facility] Last Admin: 01/07/22 09: Dose: 10 mg Cholecalciferol (Cholecalciferol 25 Mcg (1000 Iu) Tablet) 50 mcg PO DAILY [facility] Last Admin: 01/07/22 09: Dose: 50 mcg Enoxaparin Sodium (Enoxaparin 40 Mg/0.4 Ml Syringe) 40 mg SQ DAILY [facility] Last Admin: 01/07/22 09: Dose: 40 mg Hydromorphone HCl (Hydromorphone 0.5 Mg/0.5 Ml Syringe) 0.125 mg IVP Q3HR PRN PRN Reason: Pain Scale 1 to 3 Hydromorphone HCl (Hydromorphone 0.5 Mg/0.5 Ml Syringe) 0.5 mg IVP Q3HR PRN PRN Reason: Pain Scale 7 to 10 Last Admin: 01/06/22 04:10 Dose: 0.5 mg Hydromorphone HCl (Hydromorphone 0.5 Mg/0.5 Ml Syringe) 0.25 mg IVP Q3HR PRN PRN Reason: Pain Scale 4 to 6 Hydroxyzine Pamoate (Hydroxyzine Pamoate 25 Mg Cap) 25 mg PO Q4HR PRN PRN Reason: Nausea, Anxiety, Pain Control Lactated Ringer's (Lactated Ringers) 1,000 mls @ 20 mls/hr IV .Q24H [facility] Stop: 01/27/22 10:01 Last Admin: 01/07/22 07:47 Dose: Not Given Ceftriaxone Sodium 1 gm/ (Sodium Chloride) 50 mls @ 100 mls/hr IVPB Q24HR [facility]; Protocol Last Admin: 01/07/22 09:01 Dose: 100 mls/hr Vancomycin HCl 1,750 mg/ (Sodium Chloride) 500 mls @ 167 mls/hr IVPB Q48H [facility] Last Admin: 01/06/22 17:20 Dose: 167 mls/hr Lidocaine HCl (Lidocaine 1% (10mg/Ml) For Iv Start) 0.1 ml INTRADERMA PER PROTOCOL PRN PRN Reason: IV Start Stop: 01/27/22 09:51 Lidocaine HCl (Lidocaine 1% (10mg/Ml) For Iv Start) 0.1 ml INTRADERMA PER PROTOCOL PRN PRN Reason: IV Start Lisinopril (Lisinopril 20 Mg Tab) 20 mg PO QAM [facility] Last Admin: 01/07/22 09:01 Dose: 20 mg Methocarbamol (Methocarbamol 750 Mg Tab) 750 mg PO HS [facility] Last Admin: 01/06/22 22:52 Dose: 750 mg Multivitamins (Multivitamins, Thera 1 Each Tab) 1 each PO DAILY [facility] Last Admin: 01/07/22 09:01 Dose: 1 each Multivitamins/Minerals (Vit A,C & P-Nysbcd-Ptniznfl 1 Each Tab) 1 each PO BID [facility] Last Admin: 01/07/22 09:08 Dose: 1 each Naloxone HCl (Naloxone 0.4 Mg/Ml 1 Ml Vial) 0.2 mg IV Q2M PRN PRN Reason: Opioid Reversal Exemestane [Aromasin (] 25 Mg Tablet) 25 mg PO QAM [facility] Last Admin: 01/07/22 09:07 Dose: Not Given Ondansetron HCl (Ondansetron 4 Mg/2 Ml Vial) 4 mg IVP Q8HR PRN PRN Reason: Nausea And Vomiting Last Admin: 01/07/22 01:34 Dose: 4 mg Senna/Docusate Sodium (Sennosides-Docusate Sodium 1 Each Tab) 2 each PO HS [facility] Last Admin: 01/06/22 22:52 Dose: 2 each Past medical history to include: Hypertension, hyperlipidemia, osteoarthritis, infected right knee joint, breast cancer treated with bilateral mastectomy 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 Physical examination: VITAL SIGNS: 98.4, 93, 16, 1 62 x 66, 98% room air GENERAL: sitting up in a chair reclining comfortable. EYES: Pupils equal. Conjunctiva normal. HEENT: External appearance of nose and ears normal, oral cavity grossly normal. NECK: JVD not raised; masses not palpable. HEART: First and second heart sounds are normal; no edema. LUNGS: Respiratory rate normal; clear to auscultation. ABDOMEN: Soft, nontender, liver spleen not palpable, no masses palpable. PSYCH: Alert and oriented x3; mood and affect normal. MUSCULOSKELETAL:No Clubbing/cyanosis;muscles-grossly intact. Dressing over the right knee. With the wound VAC. Evidence of OA INVESTIGATIONS, reviewed in the clinical context: Renal ultrasound: Bilateral renal cyst. Left kidney cortical thinning. January 07: White count 11.0 hemoglobin 8.1 potassium 4.4 creatinine 1.07 WBC 15.5 hemoglobin 8.7 platelets 238 creatinine 1.16 Assessment and plan: -Infected revision right total knee arthroplasty, hardware was REMOVED. Placement of antibiotics pacer. Has a wound VAC in place. Cultures pending IV vancomycin. IV ceftriaxone. -Primary osteoarthritis multiple joints bilaterally Pain medications as needed -Essential hypertension Zestril 20 mg a day -Hyperlipidemia Lipitor 10 mg a day -Leukocytosis from infected right knee joint now removed -Normocytic anemia. Likely from chronic infection. Pending iron studies, B12. Occult blood -Breast cancer with history of bilateral mastectomy Continue Aromasin from home -Chronic kidney disease stage II likely nephrosclerosis Given patient's on vancomycin. 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 Patient continues using cane/walker as determined to be safe IV ceftriaxone and vancomycin. Pending anemia lab work. Follow kidney function. Discussed with patient.
[2022-01-07 17:57] LABS: % Iron Saturation 11.34 (12.00-45.00); Iron 25 ug/dL (50-170); Total Iron Binding Capacity 217 ug/dL (228-460)
[2022-01-07] MEDS: SENNOSIDES-DOCUSATE SODIUM 1 EACH TAB PO SCH (20:33)
[2022-01-07] MEDS: methocarbamoL 750 MG TAB PO SCH (20:33)
[2022-01-08] MEDS: HYDROcodone/APAP 10-325MG 1 EACH TAB PO PRN ×5 (04:23→23:11)
[2022-01-08 05:01] LABS: African American GFR (CKD) 60 (>60 ml/min/1.73 sqM); Anion Gap 8 mmol/L; Blood Urea Nitrogen 16 mg/dL (7-17); Carbon Dioxide 25 mmol/L (22-30); Chloride 102 mmol/L (98-107); Glucose 102 mg/dL (74-99); Non-African American GFR(CKD) 52 (>60 ml/min/1.73 sqM); Potassium 4.2 mmol/L (3.5-5.1); Sodium 135 mmol/L (137-145)
[2022-01-08 06:10] LABS: Basophils # (A) 0.1 k/uL (0-0.2); Basophils % (A) 1 %; Eosinophils # (A) 0.4 k/uL (0-0.7); Eosinophils % (A) 4 %; HCT 25.4 % (34.0-46.0); HGB 8.2 gm/dL (11.4-16.0); Hypochromasia Slight; Lymphocytes # (A) 1.2 k/uL (1.0-4.8); Lymphocytes % (A) 15 %; MCH 30.5 pg (25.0-35.0); MCHC 32.5 g/dL (31.0-37.0); MCV 93.9 fL (80.0-100.0); Mean Platelet Volume 9.9; Monocytes # (A) 1.1 k/uL (0-1.0); Monocytes % (A) 13 %; Neutrophils # (A) 5.4 k/uL (1.3-7.7); Neutrophils % (A) 65 %; Platelet Count 189 k/uL (150-450); RDW 15.1 % (11.5-15.5); WBC 8.3 k/uL (3.8-10.6)
[2022-01-08] MEDS: LACTATED RINGERS 1,000 ML IV SCH (07:10)
--- NOTE | 2022-01-08 09:00 | P.PN ---
Subjective Progress Note Date: 01/08/22 The patient is doing much better this morning. Her pain is significantly improved. She is sitting up in a chair. Other than pain in her knee she has no other complaints. Objective - Vital Signs Vital signs: Vital Signs Temp 98.5 F 01/08/22 02:00 Pulse 93 01/08/22 02:00 Resp 16 01/08/22 02:00 BP 158/70 01/08/22 02:00 Pulse Ox 99 01/08/22 02:00 FiO2 Intake & Output 01/07/22 01/08/22 01/08/22 18:59 06:59 18:59 Output Total 900 2100 Balance -900 -2100 Output: Urine 900 2100 Other: Voiding Method Indwelling Catheter Indwelling Catheter - Exam The patient is sitting up at bedside resting comfortably. She is in no apparent distress and is alert and oriented. A focused exam of the right lower extremity was conducted. Knee immobilizer was taken down. A clean-appearing Enoch wrap and web roll were in place and removed. On inspection there is an incisional wound VAC with good seal. There is mild swelling throughout the leg but no erythema. Her calf is nontender. Motor and sensory function are intact. - Labs CBC & Chem 7: 01/08/22 03:52 01/08/22 03:52 Labs: Abnormal Lab Results - Last 24 Hours (Table) 01/07/22 01/07/22 01/08/22 Range/Units 08:02 08:02 03:52 WBC 11.0 H (3.8-10.6) k/uL RBC 2.69 L (3.80-5.40) m/uL Hgb 8.1 L (11.4-16.0) gm/dL Hct 25.4 L (34.0-46.0) % Monocytes # (0-1.0) k/uL Monocytes # (Manual) 1.10 H (0-1.0) k/uL ESR 77 H (0-20) mm/hr Sodium 136 L 135 L (137-145) mmol/L BUN 18 H (7-17) mg/dL Creatinine 1.07 H 1.07 H (0.52-1.04) mg/dL Glucose 113 H 102 H (74-99) mg/dL Iron 25 L (50-170) ug/dL TIBC 217 L (228-460) ug/dL % Saturation 11.34 L (12.00-45.00) Transferrin 155.0 L (204.0-354.0) mg/dL AST 37 H (14-36) U/L ALT 50 H (4-34) U/L C-Reactive Protein 8.2 H (<1.0) mg/dL Total Protein 5.2 L (6.3-8.2) g/dL Albumin 2.7 L (3.5-5.0) g/dL 01/08/22 Range/Units 03:52 WBC (3.8-10.6) k/uL RBC 2.70 L (3.80-5.40) m/uL Hgb 8.2 L (11.4-16.0) gm/dL Hct 25.4 L (34.0-46.0) % Monocytes # 1.1 H (0-1.0) k/uL Monocytes # (Manual) (0-1.0) k/uL ESR (0-20) mm/hr Sodium (137-145) mmol/L BUN (7-17) mg/dL Creatinine (0.52-1.04) mg/dL Glucose (74-99) mg/dL Iron (50-170) ug/dL TIBC (228-460) ug/dL % Saturation (12.00-45.00) Transferrin (204.0-354.0) mg/dL AST (14-36) U/L ALT (4-34) U/L C-Reactive Protein (<1.0) mg/dL Total Protein (6.3-8.2) g/dL Albumin (3.5-5.0) g/dL Microbiology - Last 24 Hours (Table) 01/05/22 17:30 Gram Stain - Final Knee - Right Wound Culture - Final Methicillin resist S. aureus 01/05/22 17:28 Gram Stain - Preliminary Knee - Right Tissue Culture - Preliminary 01/05/22 17:29 Gram Stain - Preliminary Knee - Right Tissue Culture - Preliminary 01/05/22 17:31 Gram Stain - Final Knee - Right Wound Culture - Final Assessment and Plan Assessment: Right periprosthetic total knee infection status post removal of implant and placement of articulating antibiotic spacer, POD#4 Right total knee arthrofibrosis BMI 45 Chronic kidney disease History of breast cancer Plan: The patient is doing better this morning and her pain is improved. I would like to continue toe-touch weightbearing and a knee immobilizer with the leg in extension to facilitate wound healing. Her cultures from surgery are growing MRSA consistent with preoperative aspiration cultures. Continue antibiotics per Dr. Burks. She'll need a PICC line prior to discharge. Planning discharge to rehab early next week. On Sunday we will take down her incisional wound VAC and evaluate her wound. At that time we'll either place an OpSite dressing versus another incisional wound VAC for an additional 1 week depending on how the wound looks. Appreciate internal medicine and infectious disease consultations. Continue DVT prophylaxis. Time with Patient: Less than 30
[2022-01-08] MEDS: ASPIRIN 81 MG PO SCH ×2 (09:19→20:08)
[2022-01-08] MEDS: ATORVASTATIN 10 MG TAB PO SCH (09:19)
[2022-01-08] MEDS: VIT A,C & E-LUTEIN-MINERALS 1 EACH TAB PO SCH ×2 (09:19→20:08)
[2022-01-08] MEDS: ENOXAPARIN 40 MG/0.4 ML SYRINGE SQ SCH (09:19)
[2022-01-08] MEDS: CHOLECALCIFEROL 25 MCG (1000 IU) TABLET PO SCH (09:19)
[2022-01-08] MEDS: MULTIVITAMINS, THERA 1 EACH TAB PO SCH (09:19)
[2022-01-08] MEDS: amLODIPine 10 MG TAB PO SCH (09:20)
[2022-01-08] MEDS: lisinopriL 20 MG TAB PO SCH (09:20)
[2022-01-08] MEDS: VANCOMYCIN 1,750 MG in SODIUM CHLORIDE 0.9% 500 ML 500 ML IVPB SCH (16:56)
--- NOTE | 2022-01-08 17:35 | P.PN ---
Subjective Progress Note Date: 01/07/22 Principal diagnosis: Right knee septic arthritis Patient is a 71-year-old female has been diagnosed with right knee septic arthritis secondary to MRSA in this patient admitted to the hospital for stage I procedure and deep cultures which are currently pending. On today's evaluation that is 01/07/2022, the patient denies having any fever or any chills, the patient is breathing comfortably, denies any chest pain shortness of breath or cough pain to the right knee is currently controlled and no abdominal pain no diarrhea Objective - Vital Signs Vital signs: Vital Signs Temp 99.1 F 01/07/22 08:00 Pulse 86 01/07/22 08:00 Resp 17 01/07/22 02:59 BP 144/70 01/07/22 08:00 Pulse Ox 98 01/07/22 08:00 FiO2 Intake & Output 01/06/22 01/07/22 01/07/22 18:59 06:59 18:59 Output Total 2024 Balance -2024 Output: Urine 2024 Uretheral ([place]) 1475 Other: Voiding Method Indwelling Catheter Indwelling Catheter Indwelling Catheter - Exam GENERAL DESCRIPTION: An elderly female lying in bed in no distress RESPIRATORY SYSTEM: Unlabored breathing , decreased breath sounds at bases HEART: S1 S2 regular rate and rhythm , ABDOMEN: Soft , no tenderness EXTREMITIES: Right knee is currently covered with a wound VAC - Labs CBC & Chem 7: 01/08/22 03:52 01/08/22 03:52 Labs: Abnormal Lab Results - Last 24 Hours (Table) 01/07/22 01/07/22 Range/Units 08:02 08:02 WBC 11.0 H (3.8-10.6) k/uL RBC 2.69 L (3.80-5.40) m/uL Hgb 8.1 L (11.4-16.0) gm/dL Hct 25.4 L (34.0-46.0) % Monocytes # (Manual) 1.10 H (0-1.0) k/uL ESR 77 H (0-20) mm/hr Sodium 136 L (137-145) mmol/L BUN 18 H (7-17) mg/dL Creatinine 1.07 H (0.52-1.04) mg/dL Glucose 113 H (74-99) mg/dL AST 37 H (14-36) U/L ALT 50 H (4-34) U/L C-Reactive Protein 8.2 H (<1.0) mg/dL Total Protein 5.2 L (6.3-8.2) g/dL Albumin 2.7 L (3.5-5.0) g/dL Microbiology - Last 24 Hours (Table) 01/05/22 17:28 Gram Stain - Preliminary Knee - Right Tissue Culture - Preliminary 01/05/22 17:29 Gram Stain - Preliminary Knee - Right Tissue Culture - Preliminary 01/05/22 17:31 Gram Stain - Preliminary Knee - Right Wound Culture - Preliminary 01/05/22 17:30 Gram Stain - Preliminary Knee - Right Wound Culture - Preliminary Assessment and Plan (1) Septic joint of right knee joint Current Visit: Yes Status: Acute Code(s): M00.9 - PYOGENIC ARTHRITIS, UNSPECIFIED SNOMED Code(s): 661860537 Plan: 1patient with right knee septic arthritis in this patient who is status post excisional arthroplasty and antibiotic spacer placement with the outpatient culture positive for MRSA to be the likely pathogen with the OR cultures currently pending. 2patient to continue with vancomycin pharmacy to dose target trough of 15 while watching kidney function and vancomycin trough closely. Time with Patient: Less than 30
--- NOTE | 2022-01-08 17:36 | P.PN ---
Subjective Progress Note Date: 01/08/22 Principal diagnosis: Right knee septic arthritis Patient is a 71-year-old female has been diagnosed with right knee septic arthritis secondary to MRSA in this patient admitted to the hospital for stage I procedure and deep cultures which are currently pending. On today's evaluation that is 01/08/2022, the patient remains to be afebrile, the patient is breathing comfortably, the patient denies any chest pain shortness of breath or cough pain to the right knee is currently controlled and no abdominal pain no diarrhea Objective - Vital Signs Vital signs: Vital Signs Temp 97.4 F L 01/08/22 14:00 Pulse 106 H 01/08/22 14:00 Resp 18 01/08/22 14:00 BP 127/70 01/08/22 14:00 Pulse Ox 97 01/08/22 14:00 FiO2 Intake & Output 01/07/22 01/08/22 01/08/22 18:59 06:59 18:59 Output Total 900 2100 Balance -900 -2100 Output: Urine 900 2100 Other: Voiding Method Indwelling Catheter Indwelling Catheter # Voids 2 - Exam GENERAL DESCRIPTION: An elderly female lying in bed in no distress RESPIRATORY SYSTEM: Unlabored breathing , decreased breath sounds at bases HEART: S1 S2 regular rate and rhythm , ABDOMEN: Soft , no tenderness EXTREMITIES: Right knee is currently covered with a wound VAC - Labs CBC & Chem 7: 01/08/22 03:52 01/08/22 03:52 Labs: Abnormal Lab Results - Last 24 Hours (Table) 01/07/22 01/08/22 01/08/22 Range/Units 08:02 03:52 03:52 RBC 2.70 L (3.80-5.40) m/uL Hgb 8.2 L (11.4-16.0) gm/dL Hct 25.4 L (34.0-46.0) % Monocytes # 1.1 H (0-1.0) k/uL Sodium 135 L (137-145) mmol/L Creatinine 1.07 H (0.52-1.04) mg/dL Glucose 102 H (74-99) mg/dL Iron 25 L (50-170) ug/dL TIBC 217 L (228-460) ug/dL % Saturation 11.34 L (12.00-45.00) Transferrin 155.0 L (204.0-354.0) mg/dL Microbiology - Last 24 Hours (Table) 01/05/22 17:30 Gram Stain - Final Knee - Right Wound Culture - Final Methicillin resist S. aureus 01/05/22 17:28 Gram Stain - Preliminary Knee - Right Tissue Culture - Preliminary 01/05/22 17:29 Gram Stain - Preliminary Knee - Right Tissue Culture - Preliminary 01/05/22 17:31 Gram Stain - Final Knee - Right Wound Culture - Final Assessment and Plan (1) Septic joint of right knee joint Current Visit: Yes Status: Acute Code(s): M00.9 - PYOGENIC ARTHRITIS, UN SPECIFIED SNOMED Code(s): 950870863 Plan: 1patient with right knee septic arthritis in this patient who is status post excisional arthroplasty and antibiotic spacer placement with the outpatient culture positive for MRSA to be the likely pathogen with the OR cultures has been finalized with MRSA 2patient to continue with vancomycin pharmacy to dose target trough of 15 while watching kidney function closely and discontinue Rocephin Time with Patient: Less than 30
--- NOTE | 2022-01-08 18:05 | P.PN ---
Progress Note - Text Progress Note Date: 01/08/22 - Chief Complaint Right knee surgery Hospital course: This is a pleasant 71-year-old patient who follows with Dr. Yao. Chronic stable medical conditions include hypertension, hyperlipidemia, osteoarthritis, history of bilateral mastectomy for breast cancer. About 5 years ago patient had right total knee arthroplasty. About 3 years ago patient had a revision arthroplasty. Then in November of this year patient had scar tissue removed by Dr. Gonzalez. Following that patient started having infections. Did receive 2 courses of Bactrim was diagnosed to have MRSA. She was then referred to Dr. Ro. Patient was just completing a course of doxycycline. Denies any fever or chills. Appetite is fair. Yesterday patient underwent complete removal of prosthesis is in the placement of antibiotic cement/pacer. She had a draining sinus that was removed. Also excision debridement of the subcutaneous tissue muscle 1 and thyroid. Including radical thyroidectomy. Patient has a local wound VAC. Patient this morning sitting up in a chair. at the bedside. No nausea vomiting. January 07: Up in a chair. Oral intake fair. Right knee pain better. IV ceftriaxone and IV vancomycin. January 08: Pain better. She cc wound VAC in place. Getting antibiotics. Tolerating diet. Questions answered. Toe-touch. Brace in the right knee. Wound culture coming back positive for MRSA Active Medications Hydrocodone Bitart/Acetaminophen (Hydrocodone/Apap 10-325mg 1 Each Tab) 1 each PO Q4HR PRN PRN Reason: Pain Last Admin: 01/08/22 14:19 Dose: 1 each Amlodipine Besylate (Amlodipine 10 Mg Tab) 10 mg PO QAM [facility] Last Admin: 01/08/22 09:20 Dose: 10 mg Aspirin (Aspirin 81 Mg) 81 mg PO BID [facility] Last Admin: 01/08/22 09:19 Dose: 81 mg Atorvastatin Calcium (Atorvastatin 10 Mg Tab) 10 mg PO QAM [facility] Last Admin: 01/08/22 09:19 Dose: 10 mg Cholecalciferol (Cholecalciferol 25 Mcg (1000 Iu) Tablet) 50 mcg PO DAILY [facility] Last Admin: 01/08/22 09:19 Dose: 50 mcg Enoxaparin Sodium (Enoxaparin 40 Mg/0.4 Ml Syringe) 40 mg SQ DAILY [facility] Last Admin: 01/08/22 09:19 Dose: 40 mg Hydromorphone HCl (Hydromorphone 0.5 Mg/0.5 Ml Syringe) 0.125 mg IVP Q3HR PRN PRN Reason: Pain Scale 1 to 3 Hydromorphone HCl (Hydromorphone 0.5 Mg/0.5 Ml Syringe) 0.5 mg IVP Q3HR PRN PRN Reason: Pain Scale 7 to 10 Last Admin: 01/06/22 04:10 Dose: 0.5 mg Hydromorphone HCl (Hydromorphone 0.5 Mg/0.5 Ml Syringe) 0.25 mg IVP Q3HR PRN PRN Reason: Pain Scale 4 to 6 Hydroxyzine Pamoate (Hydroxyzine Pamoate 25 Mg Cap) 25 mg PO Q4HR PRN PRN Reason: Nausea, Anxiety, Pain Control Lactated Ringer's (Lactated Ringers) 1,000 mls @ 20 mls/hr IV .Q24H [facility] Stop: 01/27/22 10:01 Last Admin: 01/08/22 07:10 Dose: Not Given Vancomycin HCl 1,750 mg/ (Sodium Chloride) 500 mls @ 167 mls/hr IVPB Q48H [facility] Last Admin: 01/08/22 16:56 Dose: 167 mls/hr Lidocaine HCl (Lidocaine 1% (10mg/Ml) For Iv Start) 0.1 ml INTRADERMA PER PROTOCOL PRN PRN Reason: IV Start Stop: 01/27/22 09:51 Lidocaine HCl (Lidocaine 1% (10mg/Ml) For Iv Start) 0.1 ml INTRADERMA PER PROTOCOL PRN PRN Reason: IV Start Lisinopril (Lisinopril 20 Mg Tab) 20 mg PO QAM [facility] Last Admin: 01/08/22 09:20 Dose: 20 mg Methocarbamol (Methocarbamol 750 Mg Tab) 750 mg PO HS [facility] Last Admin: 01/07/22 20:33 Dose: 750 mg Multivitamins (Multivitamins, Thera 1 Each Tab) 1 each PO DAILY [facility] Last Admin: 01/08/22 09:19 Dose: 1 each Multivitamins/Minerals (Vit A,C & R-Cteptw-Sykcedpr 1 Each Tab) 1 each PO BID [facility] Last Admin: 01/08/22 09:19 Dose: 1 each Naloxone HCl (Naloxone 0.4 Mg/Ml 1 Ml Vial) 0.2 mg IV Q2M PRN PRN Reason: Opioid Reversal Exemestane [Aromasin (] 25 Mg Tablet) 25 mg PO QAM [facility] Last Admin: 01/08/22 09:50 Dose: Not Given Ondansetron HCl (Ondansetron 4 Mg/2 Ml Vial) 4 mg IVP Q8HR PRN PRN Reason: Nausea And Vomiting Last Admin: 01/07/22 01:34 Dose: 4 mg Senna/Docusate Sodium (Sennosides-Docusate Sodium 1 Each Tab) 2 each PO HS [facility] Last Admin: 01/07/22 20:33 Dose: 2 each Past medical history to include: Hypertension, hyperlipidemia, osteoarthritis, infected right knee joint, breast cancer treated with bilateral mastectomy 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 Physical examination: VITAL SIGNS: 97.4, 106, 16, 127/70, 97% room air GENERAL: sitting up in a chair reclining comfortable. EYES: Pupils equal. Conjunctiva normal. HEENT: External appearance of nose and ears normal, oral cavity grossly normal. NECK: JVD not raised; masses not palpable. HEART: First and second heart sounds are normal; no edema. LUNGS: Respiratory rate normal; clear to auscultation. ABDOMEN: Soft, nontender, liver spleen not palpable, no masses palpable. PSYCH: Alert and oriented x3; mood and affect normal. MUSCULOSKELETAL:No Clubbing/cyanosis;muscles-grossly intact. Dressing over the right knee. With the wound VAC. Evidence of OA INVESTIGATIONS, reviewed in the clinical context: January 08: White count 8.3 hemoglobin 8.2 potassium 4.2 creatinine 1.07 Vitamin B12 244 CRP 8.2 iron 25 TIBC 217% saturation 11.34 transferrin 155 Renal ultrasound: Bilateral renal cyst. Left kidney cortical thinning. January 07: White count 11.0 hemoglobin 8.1 potassium 4.4 creatinine 1.07 WBC 15.5 hemoglobin 8.7 platelets 238 creatinine 1.16 Assessment and plan: -Infected revision right total knee arthroplasty, hardware was REMOVED. Placement of antibiotics pacer. Has a wound VAC in place. Cultures positive for MRSA IV vancomycin. -Primary osteoarthritis multiple joints bilaterally Pain medications as needed -Essential hypertension Zestril 20 mg a day -Hyperlipidemia Lipitor 10 mg a day -Leukocytosis from infected right knee joint now removed -Normocytic anemia. Likely from chronic infection./Iron deficient Give IV Ferrlecit 2 doses -Breast cancer with history of bilateral mastectomy Continue Aromasin from home -Chronic kidney disease stage II likely nephrosclerosis Given patient's on vancomycin. 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 Patient continues using cane/walker as determined to be safe IV vancomycin. Pending anemia lab work. . Discussed with patient. IV Ferrlecit 2 doses.
[2022-01-08] MEDS: methocarbamoL 750 MG TAB PO SCH (20:08)
[2022-01-08] MEDS: SENNOSIDES-DOCUSATE SODIUM 1 EACH TAB PO SCH (20:08)
[2022-01-08] MEDS: SODIUM FERRIC GLUCONAT-SUCROSE 125 MG in SODIUM CHLORIDE 0.9% 100 ML IVPB SCH (21:34)
[2022-01-09] MEDS: HYDROcodone/APAP 10-325MG 1 EACH TAB PO PRN ×4 (04:33→19:40)
[2022-01-09] MEDS: LACTATED RINGERS 1,000 ML IV SCH (07:49)
--- NOTE | 2022-01-09 07:57 | P.PN ---
Subjective Progress Note Date: 01/09/22 Doing well overall. Pain controlled in right knee. Tolerating antibiotics and diet. Up in chair this morning with no complaints. Objective - Vital Signs Vital signs: Vital Signs Temp 98.3 F 01/09/22 07:08 Pulse 84 01/09/22 07:08 Resp 15 01/09/22 07:08 BP 139/71 01/09/22 07:08 Pulse Ox 93 L 01/09/22 07:08 FiO2 Intake & Output 01/08/22 01/09/22 01/09/22 18:59 06:59 18:59 Other: # Voids 2 - Exam Sitting comfortably in chair. Wound VAC cannister tubing partially dislodged resulting in alarm - re-inserted with excellent seal. Thigh/calf soft. Motor and sensory intact. - Labs CBC & Chem 7: 01/08/22 03:52 01/08/22 03:52 Labs: Microbiology - Last 24 Hours (Table) 01/05/22 17:28 Anaerobic Culture - Preliminary Knee - Right 01/05/22 17:29 Anaerobic Culture - Preliminary Knee - Right 01/05/22 17:30 Anaerobic Culture - Preliminary Knee - Right 01/05/22 17:31 Anaerobic Culture - Preliminary Knee - Right 01/05/22 17:28 Gram Stain - Preliminary Knee - Right Tissue Culture - Preliminary 01/05/22 17:29 Gram Stain - Preliminary Knee - Right Tissue Culture - Preliminary Assessment and Plan Assessment: POD #5 s/p Right infected TKA explant/excision of sinus and placement of antibiotic spacer. Doing well. Plan: Intra-op cultures showing MRSA. Vancomycin per Dr. Burks. Will need PICC line prior to discharge. I will changer her Prevena wound VAC tomorrow AM for a wound check and to place a new 7-day wound VAC. Continue TTWB in Knee immobilizer until wounds heal. Discharge planning in progress, patient wanting [facility]. Likely discharge Sunday or Sunday.
[2022-01-09] MEDS: CHOLECALCIFEROL 25 MCG (1000 IU) TABLET PO SCH (08:50)
[2022-01-09] MEDS: amLODIPine 10 MG TAB PO SCH (08:50)
[2022-01-09] MEDS: ENOXAPARIN 40 MG/0.4 ML SYRINGE SQ SCH (08:50)
[2022-01-09] MEDS: ATORVASTATIN 10 MG TAB PO SCH (08:50)
[2022-01-09] MEDS: MULTIVITAMINS, THERA 1 EACH TAB PO SCH (08:50)
[2022-01-09] MEDS: ASPIRIN 81 MG PO SCH ×2 (08:50→23:10)
[2022-01-09] MEDS: lisinopriL 20 MG TAB PO SCH (08:50)
[2022-01-09] MEDS: VIT A,C & E-LUTEIN-MINERALS 1 EACH TAB PO SCH ×2 (08:57→23:10)
[2022-01-09] MEDS: SODIUM FERRIC GLUCONAT-SUCROSE 125 MG in SODIUM CHLORIDE 0.9% 100 ML IVPB SCH (08:57)
--- NOTE | 2022-01-09 15:38 | P.PN ---
Progress Note - Text Progress Note Date: 01/09/22 - Chief Complaint Right knee surgery Hospital course: This is a pleasant 71-year-old patient who follows with Dr. Yao. Chronic stable medical conditions include hypertension, hyperlipidemia, osteoarthritis, history of bilateral mastectomy for breast cancer. About 5 years ago patient had right total knee arthroplasty. About 3 years ago patient had a revision arthroplasty. Then in November of this year patient had scar tissue removed by Dr. Gonzalez. Following that patient started having infections. Did receive 2 courses of Bactrim was diagnosed to have MRSA. She was then referred to Dr. Ro. Patient was just completing a course of doxycycline. Denies any fever or chills. Appetite is fair. Yesterday patient underwent complete removal of prosthesis is in the placement of antibiotic cement/pacer. She had a draining sinus that was removed. Also excision debridement of the subcutaneous tissue muscle 1 and thyroid. Including radical thyroidectomy. Patient has a local wound VAC. Patient this morning sitting up in a chair. at the bedside. No nausea vomiting. January 07: Up in a chair. Oral intake fair. Right knee pain better. IV ceftriaxone and IV vancomycin. January 08: Pain better. She cc wound VAC in place. Getting antibiotics. Tolerating diet. Questions answered. Toe-touch. Brace in the right knee. Wound culture coming back positive for MRSA January 09: Up in a chair. Pain control. Oral intake fair. Antibiotics in place. Active Medications Hydrocodone Bitart/Acetaminophen (Hydrocodone/Apap 10-325mg 1 Each Tab) 1 each PO Q4HR PRN PRN Reason: Pain Last Admin: 01/09/22 14:20 Dose: 1 each Amlodipine Besylate (Amlodipine 10 Mg Tab) 10 mg PO QAM [facility] Last Admin: 01/09/22 08:50 Dose: 10 mg Aspirin (Aspirin 81 Mg) 81 mg PO BID [facility] Last Admin: 01/09/22 08:50 Dose: 81 mg Atorvastatin Calcium (Atorvastatin 10 Mg Tab) 10 mg PO QAM [facility] Last Admin: 01/09/22 08:50 Dose: 10 mg Cholecalciferol (Cholecalciferol 25 Mcg (1000 Iu) Tablet) 50 mcg PO DAILY [facility] Last Admin: 01/09/22 08:50 Dose: 50 mcg Enoxaparin Sodium (Enoxaparin 40 Mg/0.4 Ml Syringe) 40 mg SQ DAILY [facility] Last Admin: 01/09/22 08:50 Dose: 40 mg Hydromorphone HCl (Hydromorphone 0.5 Mg/0.5 Ml Syringe) 0.125 mg IVP Q3HR PRN PRN Reason: Pain Scale 1 to 3 Hydromorphone HCl (Hydromorphone 0.5 Mg/0.5 Ml Syringe) 0.5 mg IVP Q3HR PRN PRN Reason: Pain Scale 7 to 10 Last Admin: 01/06/22 04:10 Dose: 0.5 mg Hydromorphone HCl (Hydromorphone 0.5 Mg/0.5 Ml Syringe) 0.25 mg IVP Q3HR PRN PRN Reason: Pain Scale 4 to 6 Hydroxyzine Pamoate (Hydroxyzine Pamoate 25 Mg Cap) 25 mg PO Q4HR PRN PRN Reason: Nausea, Anxiety, Pain Control Vancomycin HCl 1,750 mg/ (Sodium Chloride) 500 mls @ 167 mls/hr IVPB Q48H [facility] Last Admin: 01/08/22 16:56 Dose: 167 mls/hr Lidocaine HCl (Lidocaine 1% (10mg/Ml) For Iv Start) 0.1 ml INTRADERMA PER PROTOCOL PRN PRN Reason: IV Start Stop: 01/27/22 09:51 Lidocaine HCl (Lidocaine 1% (10mg/Ml) For Iv Start) 0.1 ml INTRADERMA PER PROTOCOL PRN PRN Reason: IV Start Lisinopril (Lisinopril 20 Mg Tab) [facility] [place] Last Admin: 01/09/22 08:50 Dose: 20 mg Methocarbamol (Methocarbamol 750 Mg Tab) 750 mg PO HS [facility] Last Admin: 01/08/22 20:08 Dose: 750 mg Multivitamins (Multivitamins, Thera 1 Each Tab) 1 each PO DAILY [facility] Last Admin: 01/09/22 08:50 Dose: 1 each Multivitamins/Minerals (Vit A,C & U-Apddco-Cjegojsv 1 Each Tab) 1 each PO BID [facility] Last Admin: 01/09/22 08:57 Dose: 1 each Naloxone HCl (Naloxone 0.4 Mg/Ml 1 Ml Vial) 0.2 mg IV Q2M PRN PRN Reason: Opioid Reversal Exemestane [Aromasin (] 25 Mg Tablet) 25 mg PO QAM [facility] Last Admin: 01/09/22 09:09 Dose: Not Given Ondansetron HCl (Ondansetron 4 Mg/2 Ml Vial) 4 mg IVP Q8HR PRN PRN Reason: Nausea And Vomiting Last Admin: 01/07/22 01:34 Dose: 4 mg Senna/Docusate Sodium (Sennosides-Docusate Sodium 1 Each Tab) 2 each PO HS [facility] Last Admin: 01/08/22 20:08 Dose: 2 each Past medical history to include: Hypertension, hyperlipidemia, osteoarthritis, infected right knee joint, breast cancer treated with bilateral mastectomy 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 Physical examination: VITAL SIGNS: 98.1, 82, 17, 119/69, 97% room air GENERAL: sitting up in a chair reclining comfortable. EYES: Pupils equal. Conjunctiva normal. HEENT: External appearance of nose and ears normal, oral cavity grossly normal. NECK: JVD not raised; masses not palpable. HEART: First and second heart sounds are normal; no edema. LUNGS: Respiratory rate normal; clear to auscultation. ABDOMEN: Soft, nontender, liver spleen not palpable, no masses palpable. PSYCH: Alert and oriented x3; mood and affect normal. MUSCULOSKELETAL:No Clubbing/cyanosis;muscles-grossly intact. Dressing over the right knee. With the wound VAC. Evidence of OA INVESTIGATIONS, reviewed in the clinical context: January 08: White count 8.3 hemoglobin 8.2 potassium 4.2 creatinine 1.07 Vitamin B12 244 CRP 8.2 iron 25 TIBC 217% saturation 11.34 transferrin 155 Renal ultrasound: Bilateral renal cyst. Left kidney cortical thinning. January 07: White count 11.0 hemoglobin 8.1 potassium 4.4 creatinine 1.07 WBC 15.5 hemoglobin 8.7 platelets 238 creatinine 1.16 Assessment and plan: -Infected revision right total knee arthroplasty, hardware was REMOVED. Placement of antibiotics pacer. Has a wound VAC in place. Cultures positive for MRSA IV vancomycin. -Primary osteoarthritis multiple joints bilaterally Pain medications as needed -Essential hypertension Zestril 20 mg a day -Hyperlipidemia Lipitor 10 mg a day -Leukocytosis from infected right knee joint now removed -Normocytic anemia. Likely from chronic infection./Iron deficient Give IV Ferrlecit 2 doses -Breast cancer with history of bilateral mastectomy Continue Aromasin from home -Chronic kidney disease stage II likely nephrosclerosis Given patient's on vancomycin. 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 Patient continues using cane/walker as determined to be safe IV vancomycin. Other medications to continue. IV Ferrlecit 2 doses. Discussed with patient.
[2022-01-09] MEDS: SENNOSIDES-DOCUSATE SODIUM 1 EACH TAB PO SCH (23:10)
[2022-01-09] MEDS: methocarbamoL 750 MG TAB PO SCH (23:10)
[2022-01-10] MEDS: HYDROcodone/APAP 10-325MG 1 EACH TAB PO PRN ×4 (01:59→20:57)
--- NOTE | 2022-01-10 07:26 | P.PN ---
Subjective Patient doing well this morning. Up in chair. Pain controlled. Objective - Vital Signs Vital signs: Vital Signs Temp 98.4 F 01/10/22 02:00 Pulse 86 01/10/22 02:00 Resp 20 01/10/22 02:00 BP 135/72 01/10/22 02:00 Pulse Ox 96 01/10/22 02:00 FiO2 Intake & Output 01/09/22 01/10/22 01/10/22 18:59 06:59 18:59 Other: Voiding Method Indwelling Catheter # Voids 2 1 - Exam Sitting comfortably in chair, no apparent distress RIGHT LE: Wound VAC removed. Incision and wound from sinus tract healing with no drainage or evidence of dehiscence. Mild swelling, no erythema, warmth or drainage. Mild effusion. Motor/sensory function intact. - Labs CBC & Chem 7: 01/08/22 03:52 01/08/22 03:52 Labs: Microbiology - Last 24 Hours (Table) 01/05/22 17:28 Anaerobic Culture - Preliminary Knee - Right 01/05/22 17:29 Anaerobic Culture - Preliminary Knee - Right 01/05/22 17:30 Anaerobic Culture - Final Knee - Right 01/05/22 17:31 Anaerobic Culture - Final Knee - Right 01/05/22 17:28 Gram Stain - Final Knee - Right Tissue Culture - Final 01/05/22 17:29 Gram Stain - Final Knee - Right Tissue Culture - Final Assessment and Plan Assessment: POD#6 s/p explant of infected TKA/excision of sinus tract, placement of articulating antibiotic spacer. Doing well. Plan: The patient's wound VAC was taken down this morning. The incision and sinus tract wound are intact with no drainage. Both looked good. Due to the high risk of wound issues and transfer to rehab, I placed another incisional wound VAC this morning. The patient will continued TTWB and knee immobilizer to reduce tension on the anterior incision and wound. Continue IV vancomycin. Needs a PICC line. Patient requesting discharge to [facility]. I'm ok for the patient to disc harge when arrangements for [facility] are made and PICC line/antibiotic arrangements are finalized. PROCEDURE: Wound VAC over right knee removed. Incision and sinus wound healing. The incision measured 30-cm. A new incisional wound VAC was placed over the incision and sinus. When attached to suction, there was a good seal. The patient tolerated well and a knee immobilizer was placed. Time with Patient: Greater than 30
[2022-01-10] MEDS: ATORVASTATIN 10 MG TAB PO SCH (08:30)
[2022-01-10] MEDS: lisinopriL 20 MG TAB PO SCH (08:30)
[2022-01-10] MEDS: CHOLECALCIFEROL 25 MCG (1000 IU) TABLET PO SCH (08:30)
[2022-01-10] MEDS: amLODIPine 10 MG TAB PO SCH (08:30)
[2022-01-10] MEDS: MULTIVITAMINS, THERA 1 EACH TAB PO SCH (08:30)
[2022-01-10] MEDS: ASPIRIN 81 MG PO SCH ×2 (08:30→20:57)
[2022-01-10] MEDS: VIT A,C & E-LUTEIN-MINERALS 1 EACH TAB PO SCH ×2 (08:32→20:57)
--- NOTE | 2022-01-10 08:35 | P.PN ---
Subjective Progress Note Date: 01/09/22 Principal diagnosis: Right knee septic arthritis Patient is a 71-year-old female has been diagnosed with right knee septic arthritis secondary to MRSA in this patient admitted to the hospital for stage I procedure and deep cultures which are currently pending. On today's evaluation that is , the patient continues to be afebrile, the patient is breathing comfortably on room air, the patient denies any chest pain shortness of breath or cough pain to the right knee is currently controlled, the patient denies abdominal pain no diarrhea Objective - Vital Signs Vital signs: Vital Signs Temp 98.1 F 01/09/22 18:50 Pulse 82 01/09/22 19:40 Resp 17 01/09/22 19:40 BP 119/69 01/09/22 18:50 Pulse Ox 97 01/09/22 18:50 FiO2 Intake & Output 01/09/22 01/09/22 01/10/22 06:59 18:59 06:59 Other: Voiding Method Indwelling Catheter # Voids 2 - Exam GENERAL DESCRIPTION: An elderly female lying in bed in no distress RESPIRATORY SYSTEM: Unlabored breathing , decreased breath sounds at bases HEART: S1 S2 regular rate and rhythm , ABDOMEN: Soft , no tenderness EXTREMITIES: Right knee is currently covered with a wound VAC - Labs CBC & Chem 7: 01/08/22 03:52 01/08/22 03:52 Labs: Microbiology - Last 24 Hours (Table) 01/05/22 17:28 Gram Stain - Final Knee - Right Tissue Culture - Final 01/05/22 17:29 Gram Stain - Final Knee - Right Tissue Culture - Final 01/05/22 17:28 Anaerobic Culture - Preliminary Knee - Right 01/05/22 17:29 Anaerobic Culture - Preliminary Knee - Right 01/05/22 17:30 Anaerobic Culture - Preliminary Knee - Right 01/05/22 17:31 Anaerobic Culture - Preliminary Knee - Right Assessment and Plan (1) Septic joint of right knee joint Current Visit: Yes Status: Acute Code(s): M00.9 - PYOGENIC ARTHRITIS, UNSPECIFIED SNOMED Code(s): 427617802 Plan: 1patient with right knee septic arthritis in this patient who is status post excisional arthroplasty and antibiotic spacer placement with the outpatient culture positive for MRSA to be the likely pathogen with the OR cultures has been finalized with MRSA 2patient to continue with vancomycin pharmacy to dose target trough of 15, Will order PICC line for tomorrow for out patient IV vancomycin
[2022-01-10] MEDS: ENOXAPARIN 40 MG/0.4 ML SYRINGE SQ SCH (09:40)
[2022-01-10] MEDS ORDERED: LIDOCAINE 1% INJ 10MG/ML (30 ML VIAL-PF) SQ ONE (10:13)
[2022-01-10 11:53] LABS: INR 0.97 (0.90-1.11)
--- NOTE | 2022-01-10 12:02 | IR ---
EXAMINATION TYPE: IR cvc insert >=5 years DATE OF EXAM: 01/10/2022 COMPARISON: NONE CLINICAL HISTORY: Infection Needs long-term intravenous access for antibiotics. PROCEDURE: Hand hygiene obtained with soap and water and alcohol-based hand rub. After informed consent, the skin overlying the left cephalic vein was localized with ultrasound and n oted to be compressible and patent. An ultrasound image was obtained and submitted on the patient's chart. The overlying skin was prepped and draped and Lidocaine was used for local anesthesia. A ski n norma was made with a scalpel. Access was gained to the vein under ultrasound guidance with a 21 ga uge needle and a 0.018 inch wire was advanced. Access site was dilated with Peel-Away sheath and cat heter tailored to the appropriate length and advanced such that the distal tip is at the cavoatrial j unction. Spot image was obtained verifying placement. Catheter was fixed to the skin and a sterile dressing was placed following hemostasis. Catheter was aspirated and flushed with saline. Patient w as discharged in stable condition without complication. Maximal barrier technique is utilized. Ultra sound image is documented on the chart. Ultrasound used with sterile technique. Fluoro time and fluoroscopic images submitted to document procedure: 16 intraoperative C-arm images, 0.2 minutes fluoroscopy time IMPRESSION: STATUS POST ULTRASOUND AND FLUOROSCOPIC GUIDED PICC LINE PLACEMENT, READY FOR USE. THIS PROCEDURE WAS PERFORMED BY THE UNDERSIGNED.
[2022-01-10] MEDS: SENNOSIDES-DOCUSATE SODIUM 1 EACH TAB PO SCH (20:57)
[2022-01-10] MEDS: methocarbamoL 750 MG TAB PO SCH (20:57)
[2022-01-10] MEDS: VANCOMYCIN 1,750 MG in SODIUM CHLORIDE 0.9% 500 ML 500 ML IVPB SCH (22:47)
[2022-01-11] MEDS: HYDROcodone/APAP 10-325MG 1 EACH TAB PO PRN ×4 (00:53→14:42)
[2022-01-11 07:26] VITALS: PULSE 85; RESP 18
[2022-01-11 08:15] LABS: African American GFR (CKD) 61 (>60 ml/min/1.73 sqM); Anion Gap 8 mmol/L; Blood Urea Nitrogen 12 mg/dL (7-17); Calcium 8.8 mg/dL (8.4-10.2); Carbon Dioxide 26 mmol/L (22-30); Chloride 102 mmol/L (98-107); Glucose 101 mg/dL (74-99); Non-African American GFR(CKD) 53 (>60 ml/min/1.73 sqM); Sodium 136 mmol/L (137-145)
[2022-01-11 09:03] LABS: Vancomycin,Random 17.1 ug/mL
[2022-01-11] MEDS: amLODIPine 10 MG TAB PO SCH (09:32)
[2022-01-11] MEDS: ATORVASTATIN 10 MG TAB PO SCH (09:32)
[2022-01-11] MEDS: ASPIRIN 81 MG PO SCH (09:32)
[2022-01-11] MEDS: ENOXAPARIN 40 MG/0.4 ML SYRINGE SQ SCH (09:32)
[2022-01-11] MEDS: MULTIVITAMINS, THERA 1 EACH TAB PO SCH (09:32)
[2022-01-11] MEDS: lisinopriL 20 MG TAB PO SCH (09:32)
[2022-01-11] MEDS: CHOLECALCIFEROL 25 MCG (1000 IU) TABLET PO SCH (09:32)
[2022-01-11] MEDS: VIT A,C & E-LUTEIN-MINERALS 1 EACH TAB PO SCH (09:33)
--- NOTE | 2022-01-11 10:12 | P.DS ---
Providers Date of admission: 01/05/22 10:47 Expected date of discharge: 01/11/22 Attending physician: Ray Ro Consults: 01/05/22 18:11 Consult Physician Routine Consulting Provider: Danilo Tinoco Consult Reason/Comments: medical management Do you want consulting provider notified?: Yes 01/05/22 18:17 Consult Physician Routine Consulting Provider: Lenora Burks Consult Reason/Comments: rosibel-prosthetic knee infection Do you want consulting provider notified?: Yes Primary care physician: [facility] Hospital Course: This patient is a 71- year old female who initially presented to Dr. Ro in the office for evaluation of her right knee. She has a history of a right total knee arthroplasty and revision right knee arthroplasty. Patient was found to hav e a draining sinus tract and knee aspiration was growing MRSA, therefore a two- stage revision was recommended. She also has a right total hip arthroplasty. Patient underwent explant of infected TKA with excision of sinus tract, placement of articulating antibiotic spacer on 01/05/[address] Ro. The procedure was performed without complication or sequelae. The patient is doing well postoperatively. Vital signs and labs are stable on postoperative day #6. Patient is examined bedside this morning. She is up to the bedside chair. Her wound VAC was changed yesterday by Dr. Ro. She also had a PICC line placed yesterday per Dr. Burks. Patient is doing well and feeling comfortable being discharged to rehab today. She denies chest pain, shortness of breath, and is a, vomiting, fevers, chills. On examination, patient is sitting up in the bedside chair. She is alert and oriented 3. On inspection of her right knee, there is Prevena wound VAC in place that is a good seal. Knee immobilizer is currently place. Motor and sensory function is intact of the right lower extremity. Right lower extremity warm and well perfused. Patient is discharged to rehab today, pending medical clearance. She should follow-up in the office 01/17/22 Dr. Ro. Please see med rec for accurate list of discharge medications. Plan - Discharge Summary Discharge Rx Participant: No New Discharge Prescriptions: New HYDROcodone/APAP 10-325MG [Orick 10-325] 1 tab PO Q6HR PRN 7 Days #28 tab PRN Reason: Pain Aspirin 81 mg PO BID 30 Days #60 tab Docusate [Colace] 100 mg PO BID #60 capsule Omeprazole 40 mg PO DAILY 30 Days #30 cap No Action amLODIPine BESYLATE/BENAZEPRIL [Lotrel 10-20 MG] 1 cap PO QAM Rosuvastatin Calcium [Crestor] 5 mg PO QAM Acetaminophen Tab [Tylenol] 500 mg PO Q6H Cholecalciferol [Vitamin D3 (25 Mcg = 1000 Iu)] 50 mcg PO DAILY methocarbamoL [Robaxin-750] 750 mg PO HS Multivitamin/Iron/Folic Acid [Centrum Women Tablet] 1 cap PO DAILY Vit C/E/Zn/Coppr/Lutein/Zeaxan [Preservision Areds 2 Softgel] 1 each PO BID Exemestane [Aromasin] 25 mg PO QAM Hydrocodone/Acetaminophen [Hydrocodone/Acetaminophen 5-325] 1 tab PO Q6H PRN PRN Reason: Pain Doxycycline [Vibramycin] 100 mg PO BID traMADol HCL 50 mg PO HS Discharge Medication List amLODIPine BESYLATE/BENAZEPRIL [Lotrel 10-20 MG] 1 cap PO QAM 09/21/14 [History] Multivitamin/Iron/Folic Acid [Centrum Women Tablet] 1 cap PO DAILY 05/23/21 [History] methocarbamoL [Robaxin-750] 750 mg PO HS 05/23/21 [History] Rosuvastatin Calcium [Crestor] 5 mg PO QAM 07/08/21 [History] Acetaminophen Tab [Tylenol] 500 mg PO Q6H 07/28/21 [History] Cholecalciferol [Vitamin D3 (25 Mcg = 1000 Iu)] 50 mcg PO DAILY 08/15/21 [History] Vit C/E/Zn/Coppr/Lutein/Zeaxan [Preservision Areds 2 Softgel] 1 each PO BID 08/15/21 [History] Doxycycline [Vibramycin] 100 mg PO BID 12/27/21 [History] Exemestane [Aromasin] 25 mg PO QAM 12/27/21 [History] Hydrocodone/Acetaminophen [Hydrocodone/Acetaminophen 5-325] 1 tab PO Q6H PRN 12/27/21 [History] traMADol HCL 50 mg PO HS 01/05/22 [History] HYDROcodone/APAP 10-325MG [Orick 10-325] 1 tab PO Q6HR PRN 7 Days #28 tab 01/10/22 [Rx] Aspirin 81 mg PO BID 30 Days #60 tab 01/11/22 [Rx] Docusate [Colace] 100 mg PO BID #60 capsule 01/11/22 [Rx] Omeprazole 40 mg PO DAILY 30 Days #30 cap 01/11/22 [Rx] Follow up Appointment(s)/Referral(s): Nata Borges, [NON-STAFF] - As Needed Ray Ro MD [Medical Doctor] - 01/12/22 1:00 pm Activity/Diet/Wound Care/Special Instructions: Weight bear to tolerance on operative extremity with a walker. Keep knee immobilizer in place. No [id number] of the operative knee. Keep Prevena wound vac on until follow-up in the office. Take pain medications as prescribed. Take aspirin 81mg BID x 4 weeks for blood clot prevention. Follow-up in the office with Dr. Ro in one week for Prevena wound vac removal and an incision check. Call the office with any questions or concerns, Discharge Disposition: HOME WITH HOME HEALTH SERVICES
[2022-01-11] MEDS ORDERED: VANCOMYCIN 1,750 MG in SODIUM CHLORIDE 0.9% 500 ML 500 ML IVPB SCH (12:00)
[2022-01-11 14:28] VITALS: BP 139/68; TEMP 98.8
--- NOTE | 2022-01-11 17:57 | P.PN ---
Progress Note - Text Progress Note Date: 01/10/22 - Chief Complaint Right knee surgery Hospital course: This is a pleasant 71-year-old patient who follows with Dr. Yao. Chronic stable medical conditions include hypertension, hyperlipidemia, osteoarthritis, history of bilateral mastectomy for breast cancer. About 5 years ago patient had right total knee arthroplasty. About 3 years ago patient had a revision arthroplasty. Then in November of this year patient had scar tissue removed by Dr. Gonzalez. Following that patient started having infections. Did receive 2 courses of Bactrim was diagnosed to have MRSA. She was then referred to Dr. Ro. Patient was just completing a course of doxycycline. Denies any fever or chills. Appetite is fair. Yesterday patient underwent complete removal of prosthesis is in the placement of antibiotic cement/pacer. She had a draining sinus that was removed. Also excision debridement of the subcutaneous tissue muscle 1 and thyroid. Including radical thyroidectomy. Patient has a local wound VAC. Patient this morning sitting up in a chair. at the bedside. No nausea vomiting. January 07: Up in a chair. Oral intake fair. Right knee pain better. IV ceftriaxone and IV vancomycin. January 08: Pain better. She cc wound VAC in place. Getting antibiotics. Tolerating diet. Questions answered. Toe-touch. Brace in the right knee. Wound culture coming back positive for MRSA January 09: Up in a chair. Pain control. Oral intake fair. Antibiotics in place. January 10: Pain better controlled. Oral intake fair. No new symptoms. Hospital computer system is down. 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 Physical examination: VITAL SIGNS: 98.5, 84, 16, 147/68, 97% room air GENERAL: sitting up in a chair reclining EYES: Pupils equal. Conjunctiva normal. HEENT: External appearance of nose and ears normal, oral cavity grossly normal. NECK: JVD not raised; masses not palpable. HEART: First and second heart sounds are normal; no edema. LUNGS: Respiratory rate normal; clear to auscultation. ABDOMEN: Soft, nontender, liver spleen not palpable, no masses palpable. PSYCH: Alert and oriented x3; mood and affect normal. MUSCULOSKELETAL:No Clubbing/cyanosis;muscles-grossly intact. Dressing over the right knee. With the wound VAC. Evidence of OA INVESTIGATIONS, reviewed in the clinical context: January 08: White count 8.3 hemoglobin 8.2 potassium 4.2 creatinine 1.07 Vitamin B12 244 CRP 8.2 iron 25 TIBC 217% saturation 11.34 transferrin 155 Renal ultrasound: Bilateral renal cyst. Left kidney cortical thinning. January 07: White count 11.0 hemoglobin 8.1 potassium 4.4 creatinine 1.07 WBC 15.5 hemoglobin 8.7 platelets 238 creatinine 1.16 Assessment and plan: -Infected revision right total knee arthroplasty, hardware was REMOVED. Placement of antibiotics pacer. Has a wound VAC in place. Cultures positive for MRSA IV vancomycin. -Primary osteoarthritis multiple joints bilaterally Pain medications as needed -Essential hypertension Zestril 20 mg a day -Hyperlipidemia Lipitor 10 mg a day -Leukocytosis from infected right knee joint now removed -Normocytic anemia. Likely from chronic infection./Iron deficient Give IV Ferrlecit 2 doses -Breast cancer with history of bilateral mastectomy Continue Aromasin from home -Chronic kidney disease stage II likely nephrosclerosis Given patient's on vancomycin. 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 Patient continues using cane/walker as determined to be safe IV vancomycin. Discussed with patient. Pending to go to rehab.
--- NOTE | 2022-01-11 17:59 | P.PN ---
Progress Note - Text Progress Note Date: 01/11/22 - Chief Complaint Right knee surgery Hospital course: This is a pleasant 71-year-old patient who follows with Dr. Yao. Chronic stable medical conditions include hypertension, hyperlipidemia, osteoarthritis, history of bilateral mastectomy for breast cancer. About 5 years ago patient had right total knee arthroplasty. About 3 years ago patient had a revision arthroplasty. Then in November of this year patient had scar tissue removed by Dr. Gonzalez. Following that patient started having infections. Did receive 2 courses of Bactrim was diagnosed to have MRSA. She was then referred to Dr. Ro. Patient was just completing a course of doxycycline. Denies any fever or chills. Appetite is fair. Yesterday patient underwent complete removal of prosthesis is in the placement of antibiotic cement/pacer. She had a draining sinus that was removed. Also excision debridement of the subcutaneous tissue muscle 1 and thyroid. Including radical thyroidectomy. Patient has a local wound VAC. Patient this morning sitting up in a chair. at the bedside. No nausea vomiting. January 07: Up in a chair. Oral intake fair. Right knee pain better. IV ceftriaxone and IV vancomycin. January 08: Pain better. She cc wound VAC in place. Getting antibiotics. Tolerating diet. Questions answered. Toe-touch. Brace in the right knee. Wound culture coming back positive for MRSA January 09: Up in a chair. Pain control. Oral intake fair. Antibiotics in place. January 10: Pain better controlled. Oral intake fair. No new symptoms. Hospital computer system is down. January 11: Patient referred to rehab today. Questions answered. Medications reconciled. Discussed with patient. 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 Physical examination: VITAL SIGNS: 98.8, 85, 18, 139/68, 95% room air GENERAL: sitting up in a chair reclining EYES: Pupils equal. Conjunctiva normal. HEENT: External appearance of nose and ears normal, oral cavity grossly normal. NECK: JVD not raised; masses not palpable. HEART: First and second heart sounds are normal; no edema. LUNGS: Respiratory rate normal; clear to auscultation. ABDOMEN: Soft, nontender, liver spleen not palpable, no masses palpable. PSYCH: Alert and oriented x3; mood and affect normal. MUSCULOSKELETAL:No Clubbing/cyanosis;muscles-grossly intact. Dressing over the right knee. With the wound VAC. Evidence of OA INVESTIGATIONS, reviewed in the clinical context: January 11: Potassium 4 creatinine 1.06 COVID 19: Not detected January 08: White count 8.3 hemoglobin 8.2 potassium 4.2 creatinine 1.07 Vitamin B12 244 CRP 8.2 iron 25 TIBC 217% saturation 11.34 transferrin 155 Renal ultrasound: Bilateral renal cyst. Left kidney cortical thinning. January 07: White count 11.0 hemoglobin 8.1 potassium 4.4 creatinine 1.07 WBC 15.5 hemoglobin 8.7 platelets 238 creatinine 1.16 Assessment and plan: -Infected revision right total knee arthroplasty, hardware was REMOVED. Placement of antibiotics pacer. Has a wound VAC in place. Cultures positive for MRSA IV vancomycin. -Primary osteoarthritis multiple joints bilaterally Pain medications as needed -Essential hypertension Zestril 20 mg a day -Hyperlipidemia Lipitor 10 mg a day -Leukocytosis from infected right knee joint now removed -Normocytic anemia. Likely from chronic infection./Iron deficient Give IV Ferrlecit 2 doses -Breast cancer with history of bilateral mastectomy Continue Aromasin from home -Chronic kidney disease stage II likely nephrosclerosis Given patient's on vancomycin. 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 Patient continues using cane/walker as determined to be safe Continue current medications. Follow-up CBC BMP 1 week. Discussed with patient.
== END 2022-01-11 17:03 | DRG 467 ==
LOC: 2ORMAIN 01-05 10:47 → EDSTATUS 01-05 12:30 → 4SSUR 01-05 18:10
PROVIDERS: ADMIT Orthopaedic Surgery; ATTEND Orthopaedic Surgery
PROC: 0SPC0JZ Removal of Synthetic Substitute from Right Knee Joint, Open Approach (ICD-10-PCS; principal; 2022-01-05 12:30)
PROC: 0SRC0EZ Replacement of Right Knee Joint with Articulating Spacer, Open Approach (ICD-10-PCS; principal; 2022-01-05 12:30)
PROC: 0QBG0ZZ Excision of Right Tibia, Open Approach (ICD-10-PCS; principal; 2022-01-05 12:30)
PROC: 0SBC0ZZ Excision of Right Knee Joint, Open Approach (ICD-10-PCS; principal; 2022-01-05 12:30)
PROC: 0SNC0ZZ Release Right Knee Joint, Open Approach (ICD-10-PCS; principal; 2022-01-05 12:30)
PROC: 02HV33Z Insertion of Infusion Device into Superior Vena Cava, Percutaneous Approach (ICD-10-PCS; 2022-01-10)
DX: T84.53XA Infection and inflammatory reaction due to internal right knee prosthesis, initial encounter (principal); M00.061 Staphylococcal arthritis, right knee; Z68.41 Body mass index [BMI] 40.0-44.9, adult; Z16.24 Resistance to multiple antibiotics; B95.62 Methicillin resistant Staphylococcus aureus infection as the cause of diseases classified elsewhere; E66.01 Morbid (severe) obesity due to excess calories; M24.661 Ankylosis, right knee; I12.9 Hypertensive chronic kidney disease with stage 1 through stage 4 chronic kidney disease, or unspecified chronic kidney disease; N18.2 Chronic kidney disease, stage 2 (mild); D64.9 Anemia, unspecified; E78.5 Hyperlipidemia, unspecified; E61.1 Iron deficiency; F41.9 Anxiety disorder, unspecified; M15.9 Polyosteoarthritis, unspecified; M47.9 Spondylosis, unspecified; Z79.811 Long term (current) use of aromatase inhibitors; Z79.899 Other long term (current) drug therapy; Z96.652 Presence of left artificial knee joint; Z96.643 Presence of artificial hip joint, bilateral; Z96.611 Presence of right artificial shoulder joint; Z85.3 Personal history of malignant neoplasm of breast; Z88.6 Allergy status to analgesic agent; Y83.1 Surgical operation with implant of artificial internal device as the cause of abnormal reaction of the patient, or of later complication, without mention of misadventure at the time of the procedure
CPT/HCPCS: 36573; 76770; 80048; 80053; 80202; 81003; 82565; 82607; 82728; 83540; 83550; 85025; 85610; 85652; 86140; 87070; 87075; 87077; 87186; 87205; 87635

== ENCOUNTER → 2022-03-21 | Outpatient (CLI) | payer MEDICARE | END | disposition home or self-care (01) | LOC: LABWHC1 15:44 | PROVIDERS: ATTEND Orthopaedic Surgery | DX: Z96.651 Presence of right artificial knee joint (principal); M25.661 Stiffness of right knee, not elsewhere classified; T84.84XD Pain due to internal orthopedic prosthetic devices, implants and grafts, subsequent encounter; Z68.41 Body mass index [BMI] 40.0-44.9, adult; Z48.89 Encounter for other specified surgical aftercare | CPT/HCPCS: 36415; 85652; 86140 ==

== ENCOUNTER → 2022-03-21 | Outpatient (CLI) | payer MEDICARE ==
[2022-03-21 16:49] LABS: INR 0.9 (<1.2); Partial Thromboplastin Time 23.3 sec (22.0-30.0); Prothrombin Time 10.2 sec (9.0-12.0)
[2022-03-21 22:43] LABS: HGB 13.4 g/dL (12.0-15.0); MCHC 31.2 g/dL (32.0-37.0); MCV 93.1 fL (80.0-97.0); Mean Platelet Volume 12.1 fL (9.5-12.2); NRBC Per 100 WBC 0 /100 WBCS (0.0-0.0); Platelet Count 263 X 10*3/uL (140-440); RBC 4.62 X 10*6/uL (4.10-5.20); RDW 13.4 % (11.5-14.5); WBC 10.03 X 10*3/uL (4.50-10.00)
[2022-03-21 23:07] LABS: African American GFR (CKD) 47.1 (60.0-200.0); Albumin 4.3 g/dL (3.8-4.9); Albumin/Globulin Ratio 1.39 (1.60-3.17); Anion Gap 12.9 mmol/L (10.00-18.00); Blood Urea Nitrogen 19.5 mg/dL (9.0-27.0); Calcium 9.8 mg/dL (8.7-10.3); Carbon Dioxide 23.1 mmol/L (20.0-27.5); Globulin 3.1 g/dL (1.6-3.3); Non-African American GFR(CKD) 40.7 (60.0-200.0); Potassium 4.3 mmol/L (3.5-5.5); Total Bilirubin 0.3 mg/dL (0.30-1.20); Total Protein 7.4 g/dL (6.2-8.2)
[2022-03-21 23:41] LABS: Appearance,Urine Clear (Clear); Bilirubin,Urine Negative (Negative); Blood,Urine Negative (Negative); Color,Urine Yellow (Yellow); Ketones,Urine Negative (Negative); Nitrite,Urine Negative (Negative); PH, Urine 5.5 (5.0-8.0); Specific Gravity,Urine 1.011 (1.001-1.030); Urobilinogen,Urine 0.2 (0.2,1.0)
[2022-03-21 23:55] LABS: Bacteria,Urine 1+ /HPF (None Seen)
== END | disposition home or self-care (01) ==
LOC: LABPAT 15:39
PROVIDERS: ATTEND Orthopaedic Surgery
DX: Z01.818 Encounter for other preprocedural examination (principal); Z01.812 Encounter for preprocedural laboratory examination
CPT/HCPCS: 80053; 81001; 85027; 85610; 85730; 87070

== ENCOUNTER 2022-03-31 07:30 | Inpatient (IN) | payer MEDICARE ==
[~2022-03-31 07:30] MED LIST: ACETAMINOPHEN TAB 500 MG TAB PO PRN; DEXAMETHASONE SOD PHOSPHATE 10 MG/ML 1 ML VIAL IV PRN; DEXAMETHASONE SOD PHOSPHATE 4 MG/ML 1 ML VIAL IV ONE; DOCUSATE 100 MG CAP PO PRN; FAMOTIDINE 20 MG/2 ML VIAL IVP PRN; HYDROmorphone 0.5 MG/0.5 ML SYRINGE IVP PRN; KETOROLAC 15 MG/ML 1 ML VIAL IVP PRN; ONDANSETRON 4 MG/2 ML VIAL IVP ONE; ONDANSETRON 4 MG/2 ML VIAL IVP PRN; ROPIVACAINE/EPI/CLONIDINE/KET 50 ML SYRINGE MISCELLANE PRN; TRANEXAMIC ACID IN NACL,ISO-OS 1,000 MG in SALINE 1 100ML.BAG IVPB PRN
[2022-03-31] MEDS: LACTATED RINGERS 1,000 ML IV SCH ×2 (11:58→22:50)
[2022-03-31] MEDS: oxyCODONE ER 10 MG TAB.ER.12H PO PRN ×2 (12:02→12:09)
[2022-03-31] MEDS ORDERED: MIDAZOLAM 2 MG/2 ML VIAL IVP ONE (12:21)
--- NOTE | 2022-03-31 12:30 | P.ANPRN ---
Procedure Note - Anesthesia - Nerve Block Performed Right Adductor Canal Single Time Out Performed: Yes Date of Procedure: 03/31/22 Procedure Start Time: 12:21 Procedure Stop Time: 12:29 Location of Patient: PreOp Indication: Acute Post-Operative Pain, Requested by Surgeon Sedation Type: Sedate with meaningful contact maintained Preparation: Sterile Prep, Sterile Dressing Position: Supine Catheter: None Needle Types: Facet Needle Gauge: 20 Ultrasound used to visualize needle placement: Yes Ultrasound used to observe medication spread: Yes Injectate: 0.5% Ropivacaine (see comment for volume) (20 ml + decadron 4 mg) Blood Aspirated: No Pain Paresthesia on Injection Noted: No Resistance on Injection: Normal Image Stored and Saved: Yes Events: Uneventful and Well Tolerated Right iPack Single Time Out Performed: Yes Date of Procedure: 03/31/22 Procedure Start Time: 12:30 Procedure Stop Time: 12:38 Location of Patient: PreOp Indication: Acute Post-Operative Pain, Requested by Surgeon Sedation Type: Sedate with meaningful contact maintained Preparation: Sterile Prep, Sterile Dressing Position: Left Lateral Catheter: None Needle Types: Facet Needle Gauge: 20 Ultrasound used to visualize needle placement: Yes Ultrasound used to observe medication spread: Yes Injectate: 0.5% Ropivacaine (see comment for volume) (20 ml + decadron 4 mg) Blood Aspirated: No Pain Paresthesia on Injection Noted: No Resistance on Injection: Normal Image Stored and Saved: Yes Events: Uneventful and Well Tolerated
[2022-03-31] MEDS ORDERED: NEOSTIGMINE 1 MG/ML 10 ML VIAL ONE (13:05)
[2022-03-31] MEDS ORDERED: PROPOFOL 10 MG/ML 20 ML VIAL IV ONE (13:05)
[2022-03-31] MEDS ORDERED: MIDAZOLAM 2 MG/2 ML VIAL ONE (13:05)
[2022-03-31] MEDS ORDERED: DEXAMETHASONE SOD PHOSPHATE 10 MG/ML 1 ML VIAL ONE (13:05)
[2022-03-31] MEDS ORDERED: GLYCOPYRROLATE 0.2 MG/ML 2 ML VIAL ONE (13:05)
[2022-03-31] MEDS ORDERED: PHENYLEPHRINE-0.9% NACL SYG 1,000 MCG/10 ML SYRINGE ONE (13:05)
[2022-03-31] MEDS ORDERED: ROPIVACAINE 5 MG/ML 30 ML VIAL ONE (13:05)
[2022-03-31] MEDS ORDERED: fentaNYL (PF) 50 MCG/ML 2 ML AMP ONE (13:05)
[2022-03-31] MEDS ORDERED: SUCCINYLCHOLINE CHLORIDE 200 MG/10 ML VIAL IV ONE (13:05)
[2022-03-31] MEDS ORDERED: LIDOCAINE 2% INJ 20 MG/ML (2 ML VIAL) ONE (13:05)
[2022-03-31] MEDS ORDERED: HYDROmorphone (PF) 1 MG/ML ONE (13:05)
[2022-03-31] MEDS ORDERED: ROCURONIUM 10 MG/ML (5 ML VIAL) IV ONE (13:05)
[2022-03-31] MEDS ORDERED: LACTATED RINGERS 1,000 ML IV ONE ×3 (15:07→18:36)
[2022-03-31] MEDS ORDERED: VANCOMYCIN 1,000 MG VIAL MISCELLANE ONE (17:07)
[2022-03-31] MEDS ORDERED: HYDROcodone/APAP 5-325MG 1 EACH TAB PO PRN (19:23)
[2022-03-31] MEDS ORDERED: NALOXONE 0.4 MG/ML 1 ML VIAL IV PRN (19:23)
[2022-03-31] MEDS ORDERED: HYDROmorphone 0.5 MG/0.5 ML SYRINGE IVP PRN ×2 (19:23)
[2022-03-31] MEDS: ONDANSETRON 4 MG/2 ML VIAL IVP PRN (19:56)
--- NOTE | 2022-03-31 20:02 | P.OP ---
Date of Procedure: 03/31/22 Preoperative Diagnosis: 1. 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 BMI 45 3. History of severe arthrofibrosis right total knee replacement 4. History of breast cancer 5. Hypertension Postoperative Diagnosis: Same Procedure(s) Performed: 1. Reimplantation revision total knee arthroplasty as part of a staged procedure, right knee, complex 2. Removal nonbiodegradable drug delivery implant Modifier 22 for increased procedural complexity Justification This operation required significantly more time, work, and procedural complexity than a standard revision total joint arthroplasty. Specifically the prior traumatic changes and or surgical procedure left a significantly altered surgical field with resultant scar tissue, adhesions, and altered anatomy that required a longer and more difficult and complex surgical dissection. This patient required: -Extensile exposure requiring meticulous and extensive debridement due to prior failed surgery and contractures -Technically demanding removal of prior hardware -Significantly prolonged operative time -Increased BMI (45) All of the above result in a physically and mentally challenging operative procedure that in my professional opinion necessitates a 30% increase above standard the schedule Implants: Sanchez GM RS distal femoral replacing hinge with an 11 x 127 mm stem, SM 1 tibial baseplate with 11 x 80 mm stem, 13 mm polyliner Anesthesia: PERRY, regional Surgeon: Ray Ro Staffing Coordinator #1: Scooby Trujillo Estimated Blood Loss (ml): 600 IV fluids (ml): 2,000 Pathology: other (Deep cultures) Condition: stable Disposition: PACU Indications for Procedure: The patient is a very pleasant 72-year-old female with a long-standing history of problems with her right knee. She previously underwent a right total knee replacement by Dr. Ajit Riojas at this facility. She developed arthrofibrosis requiring a manipulation at approximately 3 months after surgery. She continued to have problems with stiffness and ultimately had a second opinion and a revision surgery by Dr. Mcknight in [place]. Earlier this year she had continued issues with stiffness and presented to see my partner Dr. Trisha Gonzalez to discuss treatment. He took her for an arthroscopic debridement. Unfortunately following this her anterolateral portal never healed and she developed a draining sinus. She was referred to me and presented in my office 4 weeks after her arthroscopic debridement with an open draining wound over her anterolateral portal. There was a large amount of purulent material and active drainage from the sinus tract. I aspirated her knee and the cultures came back positive for MRSA. She underwent an extensive debridement and placement of an articulating spacer. She then received 6 weeks of IV antibiotics. Following a 2 week holiday off antibiotics she presented back to my office at which point her incision was healed, she had no sign of infection, and her knee was aspirated. I was only able to aspirate a small amount of bloody fluid and this was sent for culture and cell count. This was negative. She had appeared to have cleared her infection we discussed reimplantation. We discussed different surgical options. In addition to having had a prior infection she also has severe arthrofibrosis with essentially 20 of total motion in her knee. She also had a total hip replacement proximally. We discussed the challenges in revising her knee. My recommendation was to perform a distal femoral replacing hinge as this would allow removal of all potentially infected femoral bone, a thorough debridement, and give her the best chance of regaining motion. She understands the high risks with this. She also understands if recurrent infection develops or she has a fracture there are not many reconstructive options left. She voiced her understanding of all of this but elected to proceed with surgery. We discussed the potential risks and complications of surgery at length in cluding but certainly not limited to: Risk from anesthesia, superficial infection, deep periprosthetic joint infection, aseptic loosening, intraoperative fracture, postoperative fracture, extensor mechanism issues, draining sinus track, delayed wound healing, stiffness, instability, need for revision surgery, DVT, PE, other medical complications, and possibly loss of life or limb. Again the patient understands the very high risk given her history of prior infection, draining sinus track, and her weight. She has realistic expectations and again voiced her understanding of the high risk of complication. Operative Findings: There is no sign of infection. Deep tissues were sent for culture. The knee was severely arthro-fibrotic requiring extensive release and prolonged surgical time. Description of Procedure: The patient was identified in preoperative holding and the correct right leg was marked with my initials. I reviewed the consent form with the patient and her family. All their questions were answered. A block was given by anesthesia. The patient was then brought back to the OR by anesthesia. She was given a general anesthetic, preoperative antibiotics, and tranexamic acid. A Mcneil catheter was then placed. All bony prominences were well-padded. The right leg was then prepped and draped in the standard sterile fashion. A tourniquet was not utilized due to need for proximal femoral plating. Prior to starting surgery timeout was performed identifying the correct patient, operative extremity, and procedure. I began by outlining the prior scar over the anterior aspect of the knee. Skin incision was made with a scalpel. Dissection was carried down through the subcutaneous tissue. The incision was extended slightly proximal to her prior scar to allow identification of normal tissue planes. I then raised subfascial flaps medially and laterally. A medial parapatellar arthrotomy was performed. There is a small amount of bloody fluid but no purulence. Deep tissue was sent for culture. The knee was found to be densely fibrotic requiring prolonged operative time and meticulous technique to avoid rupturing the patellar tendon. The distal femur was circumferentially exposed including release of the collateral ligaments and posterior soft tissue. The femoral component was easily removed but the dowel of cement remained in the femur. This was incredibly difficult to remove some of the cement had interdigitated with her bone. This required prolonged time to remove the dowel without inadvertently fracturing her femur. Once all the cement was removed from the tibia we reamed both for debridement and accommodates a stem. A freshen up cut was made after setting a trial distal femoral implant and stem over the distal femur and using fluoroscopy to assess where the stem was in relation to her total hip stem. Once this was done attention was turned to the tibia. I circumferentially exp osed the tibial baseplate. Using a sagittal and reciprocating saws the bone cement interface was disrupted and the polyliner and dowel were easily removed. All the remaining cement from the tibia was removed. I then used a back lockstitch waistband setter to remove tissue from within the tibia. I then sequentially reamed and made a fresh cut of the tibia using intramedullary guide and cutting block. I sized the tibia to an SM 1 baseplate. A trial baseplate and stem was then gently impacted into the tibia. Attention was then turned back to the femur. A trial distal femur and stem were placed and I trialed different sized polyethylene liners until the leg lengths felt appropriate and the soft tissue was adequate. The joint lines seem to be relatively well restored. At this point all trial implants were removed. A thorough debridement of all soft tissue including the gutters and posterior soft tissue of the knee was performed. The wound was thoroughly irrigated with 3 L of sterile saline and pu lsatile lavage. A 3 minute soak using dilute Betadine was performed. An additional 3 L of sterile saline was used to irrigate the joint. A final 3 minute soak was used using dilute peroxide. An additional pulsatile lavage with sterile saline was then performed. New drapes were then applied. Final implants were dispensed. I began by cementing the tibial stem and baseplate. Once this had set I then cemented the femoral component taking care to match rotation with a notch made prior to cutting the distal femur. Once all cement had set the final components of the distal hinge were inserted. The knee could fully extend and flex 110. Due to the stress riser between the tip of the femoral stem from her hip replacement and stemmed revision knee replacement I elected to place a plate laterally. An incision was made proximally over the lateral aspect of the femur. A 4.5 mm plate was then slid subperiosteally from distal within the knee incision proximally. It was centered on the fibula and a nonlocking 4.5 mm screw was placed in the most proximal hole of the plate. 2 cables were placed distally and a cable was placed proximally nicely compressing the plate to bone. Fluoroscopic images were taken. The knee was then thoroughly irrigated with 3 L of sterile saline. 2 g of vancomycin powder was placed within the wound. A deep drain was placed. Both wounds were then closed in layers. Sterile dressings were applied. I verified that all instrument, sponge, and sharp counts were correct. The patient was then awoken from her anesthetic, transferred from the OR table to a gurney, and brought to recovery having tolerated the procedure well. Scooby Trujillo PAC was required as a skilled casino assistant manager for patient positioning, surgical exposure, retraction, and placement of implant. PLAN: The patient is going to be admitted to the hospital. She can weight-bear as tolerated on her right leg. We will leave her drain in until there is less then 100 mL's of output. I low suspicion for infection but I would like her to be on vancomycin while she is in the hospital and then discharged home on oral suppressive antibiotics for 3-6 months. Internal medicine has been consulted. I anticipate the patient will need discharge to [facility]. Internal medicine has been consulted for perioperative medical management
[2022-03-31] MEDS: HYDROmorphone 0.5 MG/0.5 ML SYRINGE IVP PRN (22:17)
[2022-03-31] MEDS: SENNOSIDES-DOCUSATE SODIUM 1 EACH TAB PO SCH (22:18)
[2022-03-31] MEDS: ASPIRIN 81 MG PO SCH (22:18)
[2022-03-31] MEDS: HYDROcodone/APAP 5-325MG 1 EACH TAB PO PRN (22:56)
--- NOTE | 2022-03-31 23:27 | XR ---
EXAMINATION TYPE: XR femur RT DATE OF EXAM: 03/31/2022 COMPARISON: NONE HISTORY: Postop TECHNIQUE: 4 views FINDINGS: There is right hip prosthesis. There is also right knee prosthesis. Components appear in an atomic position. No fracture seen. IMPRESSION: No complicating process seen.
--- NOTE | 2022-03-31 23:48 | XR ---
EXAMINATION TYPE: XR knee limited RT DATE OF EXAM: 03/31/2022 COMPARISON: 01/05/2022 HISTORY: Postop TECHNIQUE: 4 views FINDINGS: There is right knee prosthesis. Components are in anatomic position. No fracture seen. IMPRESSION: There is revision of the right knee prosthesis compared to old exam. No complicating proc ess seen.
[2022-04-01] MEDS ORDERED: VANCOMYCIN IV PER PHARMACY 1 EACH MISC MISCELLANE PRN (00:04)
[2022-04-01] MEDS ORDERED: VANCOMYCIN 1,500 MG in SODIUM CHLORIDE 0.9% 500 ML 500 ML IVPB ONE (01:00)
[2022-04-01] MEDS: HYDROmorphone 0.5 MG/0.5 ML SYRINGE IVP PRN ×2 (02:26→09:25)
[2022-04-01] MEDS: LACTATED RINGERS 1,000 ML IV SCH ×3 (05:59→21:43)
[2022-04-01] MEDS: HYDROcodone/APAP 5-325MG 1 EACH TAB PO PRN ×3 (06:24→20:12)
[2022-04-01] MEDS: ASPIRIN 81 MG PO SCH ×2 (08:57→21:35)
[2022-04-01] MEDS: ATORVASTATIN 10 MG TAB PO SCH (12:20)
[2022-04-01] MEDS: EXEMESTANE 25 MG PO SCH (12:20)
[2022-04-01] MEDS: PANTOPRAZOLE 40 MG TABLET PO SCH (12:21)
[2022-04-01] MEDS: lisinopriL 20 MG TAB PO SCH (12:21)
[2022-04-01 13:09] LABS: HCT 25.9 % (37.2-46.3); HGB 8.1 g/dL (12.0-15.0); MCH 28.9 pg (27.0-32.0); MCHC 31.3 g/dL (32.0-37.0); MCV 92.5 fL (80.0-97.0); Mean Platelet Volume 11.9 fL (9.5-12.2); NRBC Per 100 WBC 0 /100 WBCS (0.0-0.0); Platelet Count 190 X 10*3/uL (140-440); RDW 13.2 % (11.5-14.5); WBC 22.05 X 10*3/uL (4.50-10.00)
--- NOTE | 2022-04-01 13:40 | P.PN ---
Subjective Progress Note Date: 04/01/22 Principal diagnosis: Revision right TKA Patient is seen at bedside this morning. She is postop day #1 from revision right total knee arthroplasty. She has pain at the surgical site as expected but denies any new complaints. She denies numbness, tingling or calf pain. Review of systems is negative for fever, chills, chest pain, shortness of breath or other Objective - Vital Signs Vital signs: Vital Signs Temp 98.4 F 04/01/22 08:00 Pulse 93 04/01/22 08:00 Resp 18 04/01/22 08:01 BP 102/62 04/01/22 08:00 Pulse Ox 94 L 04/01/22 08:00 FiO2 Intake & Output 03/31/22 04/01/22 04/01/22 18:59 06:59 18:59 Intake Total 3050 150 Output Total 800 50 Balance 2250 100 Weight 106.594 kg Intake: IV 3050 150 Output: Urine 300 50 Estimated Blood Loss 500 Other: Voiding Method Indwelling Catheter Indwelling Catheter - Exam Inspection reveals a benign surgical wound. There is no active bleeding or drainage. Neurovascular status is intact throughout the lower extremity with motor and sensation fully intact. Calf is soft and nontender. 2+ dorsalis pedis pulse and less than 2 second cap refill is present. - Constitutional General appearance: Present: no acute distress - Labs CBC & Chem 7: 04/01/22 07:53 04/01/22 07:53 Labs: Abnormal Lab Results - Last 24 Hours (Table) 04/01/22 04/01/22 Range/Units 07:53 07:53 WBC 22.05 H (4.50-10.00) X 10*3/uL RBC 2.80 L (4.10-5.20) X 10*6/uL Hgb 8.1 L (12.0-15.0) g/dL Hct 25.9 L (37.2-46.3) % MCHC 31.3 L (32.0-37.0) g/dL Creatinine 1.40 H (0.52-1.04) mg/dL Assessment and Plan (1) History of total right knee replacement Narrative/Plan: She will continue with routine postop orthopedic protocol including pain management, wound care, PT, DVT prophylaxis and medical management. Current Visit: Yes Status: Acute Priority: Medium Code(s): Z96.651 - PRESENCE OF RIGHT ARTIFICIAL KNEE JOINT SNOMED Code(s): 9712426358340 Time with Patient: Less than 30
[2022-04-01 14:08] LABS: Basophils # (A) 0.03 X 10*3/uL (0.00-0.10); Basophils % (A) 0.1 %; Eosinophils # (A) 0 X 10*3/uL (0.04-0.35); Eosinophils % (A) 0 %; Immature Grans, Automated 0.7 %; Lymphocytes # (A) 1.48 X 10*3/uL (0.90-5.00); Lymphocytes % (A) 6.7 %; Monocytes # (A) 2.11 X 10*3/uL (0.20-1.00); Monocytes % (A) 9.6 %; Neutrophils # (A) 18.27 X 10*3/uL (1.80-7.70); Neutrophils % (A) 82.9 %; RBC Morphology NORMAL
--- NOTE | 2022-04-01 15:35 | XR ---
EXAMINATION TYPE: XR knee limited RT DATE OF EXAM: 03/31/2022 COMPARISON: NONE HISTORY: Knee surgery TECHNIQUE: 21 seconds of fluoroscopic time was recorded FINDINGS: Multiple fluoroscopic images show right hip prosthesis. There is right knee prosthesis. The re is lateral plate fixating the shaft of the femur. IMPRESSION: Revision of knee prosthesis surgery. No complicating process seen.
--- NOTE | 2022-04-01 15:38 | P.CONS ---
History of Present Illness - Reason for Consult Consult date: 04/01/22 Medical management Requesting physician: Ray Ro - Chief Complaint Right knee surgery - History of Present Illness This is a pleasant [id number]-cpm-year-old patient who follows with Dr. Yao. Chronic stable medical conditions include hypertension, hyperlipidemia, osteoarthritis, history of bilateral mastectomy for breast cancer. About 5 years ago patient had right total knee arthroplasty, by Dr. Gonzalez. 3 years ago patient had a revision arthroplasty. November 2021 patient had scar tissue removed arthroscopically by Dr. Gonzalez. Following that patient started having infections. Did receive 2 courses of Bactrim was diagnosed to have MRSA. She was then referred to Dr. Ro. Patient was just completing a course of doxycycline. Denies any fever or chills. Appetite is fair. March 2022- complete removal of prosthesis and placement of antibiotic cement/pacer. She had a draining sinus that was removed. Received vancomycin for 7 weeks. Yesterday 03/31/2022 removal of antibiotics pacer. And reimplantation revision totally arthroplasty. By Dr. Ro. Sitting up in bed. Some pain present. Did tolerate her diet. No nausea vomiting. Daughter the bedside. Review of systems: GEN.: Tired EYES: None HEENT: None NECK: None RESPIRATORY: None CARDIOVASCULAR: None GASTROINTESTINAL: None GENITOURINARY: None MUSCULOSKELETAL: Joint pains LYMPHATICS: None HEMATOLOGICAL: None PSYCHIATRY: None NEUROLOGICAL: None Past medical history to include: Hypertension, hyperlipidemia, osteoarthritis, infected right knee joint, breast cancer treated with bilateral mastectomy 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 Physical examination: VITAL SIGNS: 98.4, 93, 17, 1 or 2 glasses 2, 94% room air GENERAL: BMI is 4.4, sitting up in bed, comfortable EYES: Pupils equal. Conjunctiva normal. HEENT: External appearance of nose and ears normal, oral cavity grossly normal. NECK: JVD not raised; masses not palpable. HEART: First and second heart sounds are normal; no edema. LUNGS: Respiratory rate normal; clear to auscultation. ABDOMEN: Soft, nontender, liver spleen not palpable, no masses palpable. PSYCH: Alert and oriented x3; mood and affect normal. MUSCULOSKELETAL:No Clubbing/cyanosis;muscles-grossly intact. Dressing over the right knee. Evidence of OA NEUROLOGICAL: Cranial nerves grossly intact; no facial asymmetry, power and sensation grossly intact. LYMPHATICS: No lymph nodes palpable in the axilla and neck INVESTIGATIONS, reviewed in the clinical context: 04/01/2022: WBC 22.0 hemoglobin 8.1 platelets 190 creatinine 1.4 Assessment and plan: -Reimplantation, right knee hardware, removal of antibiotic spacer, with a prior history of right knee arthroplasty. With prior MRSA infection following arthroscope he By Dr. Ro on March. IV vancomycin -Primary osteoarthritis multiple joints bilaterally Pain medications as needed -Essential hypertension Zestril 40 mg a day -Hyperlipidemia Crestor 5 mg mg a day -Leukocytosis from infected right knee joint now removed -Normocytic anemia. Likely from chronic infection./Iron deficient -Breast cancer with history of bilateral mastectomy Continue Aromasin from home -Chronic kidney disease stage II likely nephrosclerosis Given patient's on vancomycin. 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 Patient continues using cane/walker Resume it in case his. IV vancomycin. Follow renal function. Care was discussed the patient. Questions answered. Thank you Dr. Ro Past Medical History Past Medical History: Hyperlipidemia, Hypertension, Osteoarthritis (OA) Additional Past Medical History / Comment(s): ARTHRITIS LEFT HIP AND BACK. History of Any Multi-Drug Resistant Organisms: MRSA Year Discovered:: 01/05/22 MDRO Source:: Right Knee Past Surgical History: Appendectomy, Breast Surgery, Cholecystectomy, Heart Catheterization, Hysterectomy, Joint Replacement, Orthopedic Surgery, Tonsillectomy Additional Past Surgical History / Comment(s): RIGHT KNEE ARTHROSCOPY, RT TOTAL SHOULDER., TOTAL LEFT HIP (09/2014)x2. 10-27-15 TOTAL RT KNEE ARTHROPLASTY. re done meredith mastectomy no lymph node involvement, right hip x 1 Past Anesthesia/Blood Transfusion Reactions: No Reported Reaction Additional Past Anesthesia/Blood Transfusion Reaction / Comm: family hx ponv,usually is pre medicated Past Psychological History: No Psychological Hx Reported Smoking Status: Never smoker Past Alcohol Use History: None Reported Past Drug Use History: None Reported - Past Family History Mother Family Medical History: Cancer, Pulmonary Embolus Additional Family Medical History / Comment(s): breast cancer Sister(s) Family Medical History: Cancer, Hyperlipidemia Additional Family Medical History / Comment(s): TWO SISTERS HAD BREAST CANCER. Medications and Allergies Home Medications Medication Instructions Recorded Confirmed Type amLODIPine BESYLATE/BENAZEPRIL 1 cap PO QAM 09/21/14 03/27/22 History [Lotrel 10-20 MG] Multivitamin/Iron/Folic Acid 1 cap PO DAILY 05/23/21 03/27/22 History [Centrum Women Tablet] methocarbamoL [Robaxin-750] 750 mg PO HS 05/23/21 03/31/22 History Rosuvastatin Calcium [Crestor] 5 mg PO QAM 07/08/21 03/31/22 History Acetaminophen Tab [Tylenol] 500 mg PO Q6H 07/28/21 03/31/22 History Cholecalciferol [Vitamin D3 (25 50 mcg PO DAILY 08/15/21 03/27/22 History Mcg = 1000 Iu)] Vit C/E/Zn/Coppr/Lutein/Zeaxan 1 each PO BID 08/15/21 03/31/22 History [Preservision Areds 2 Softgel] Exemestane [Aromasin] 25 mg PO QAM 12/27/21 03/27/22 History HYDROcodone/APAP 10-325MG [Hector 1 tab PO Q6HR PRN 7 Days #28 tab 01/10/22 03/31/22 Rx 10-325] Ferrous Sulfate [Feosol] 325 mg PO BID #1 tab 01/11/22 03/27/22 Rx Omeprazole 40 mg PO DAILY 30 Days #30 cap 01/11/22 03/27/22 Rx Sennosides-Docusate Sodium 2 each PO HS tab 01/11/22 03/31/22 Rx [Senokot-S] Aspirin 81 mg PO BID 30 Days #60 tab 03/31/22 Rx Docusate [Colace] 100 mg PO BID #60 capsule 03/31/22 Rx HYDROcodone/APAP 5-325MG [Hector 1 - 2 tab PO Q6HR PRN 7 Days #32 03/31/22 Rx 5-325] tab Omeprazole 40 mg PO DAILY 30 Days #30 cap 03/31/22 Rx Allergies Allergy/AdvReac Type Severity Reaction Status Date / Time ibuprofen [From Motrin] AdvReac Unknown ELEVATED Verified 03/27/22 12:34 CREATININE Physical Exam Vitals: Vital Signs Temp Pulse Resp BP Pulse Ox 04/01/22 08:00 98.4 F 93 17 102/62 94 L 04/01/22 03:31 97.9 F 99 16 148/71 92 L 03/31/22 22:45 101 H 144/78 100 03/31/22 22:30 108 H 148/76 100 03/31/22 22:15 104 H 173/75 99 03/31/22 22:00 110 H 133/81 99 03/31/22 21:45 100 154/75 98 03/31/22 21:30 94 161/75 100 03/31/22 21:15 88 148/65 03/31/22 21:00 93 146/75 100 03/31/22 20:45 87 146/74 98 03/31/22 20:30 97.7 F 93 18 154/73 99 03/31/22 20:07 94 18 152/64 100 03/31/22 19:52 90 18 157/69 100 03/31/22 19:37 96 18 137/66 100 03/31/22 19:22 109 H 18 134/65 100 03/31/22 12:31 85 16 175/72 98 03/31/22 11:53 97.5 F L 90 16 184/81 98 Intake and Output 03/31/22 04/01/22 04/01/22 22:59 06:59 14:59 Intake Total 2150 Output Total 850 Balance 1300 Intake: IV 2150 Output: Urine 350 Estimated Blood Loss 500 Other: Voiding Method Indwelling Catheter Weight 106.594 kg Results CBC & Chem 7: 04/01/22 07:53 04/01/22 07:53 Labs: Abnormal Lab Results - Last 24 Hours (Table) 04/01/22 Range/Units 07:53 Creatinine 1.40 H (0.52-1.04) mg/dL
[2022-04-01] MEDS: ONDANSETRON 4 MG/2 ML VIAL IVP PRN (17:35)
[2022-04-01] MEDS: hydrOXYzine pamoate 25 MG CAP PO PRN (17:44)
[2022-04-01] MEDS ORDERED: VANCOMYCIN 1,500 MG in SODIUM CHLORIDE 0.9% 500 ML 500 ML IVPB SCH (21:00)
[2022-04-01] MEDS: methocarbamoL 750 MG TAB PO SCH (21:34)
[2022-04-01] MEDS: VIT A,C & E-LUTEIN-MINERALS 1 EACH TAB PO SCH (21:34)
[2022-04-01] MEDS: SENNOSIDES-DOCUSATE SODIUM 1 EACH TAB PO SCH (21:35)
[2022-04-01] MEDS: FERROUS SULFATE 325 MG TAB PO SCH (21:35)
--- NOTE | 2022-04-01 23:23 | P.CONS ---
History of Present Illness - Reason for Consult Consult date: 04/01/22 Stage II revision and recent right knee septic arthritis Requesting physician: Scooby Trujillo - Chief Complaint Right knee pain x few days - History of Present Illness Patient is a 72-year-old female with a past medical history significant for right knee septic arthritis secondary to MRSA, patient did have a stage I procedure completed few weeks ago and the patient afterwards completed more than 6-week course of IV vancomycin the patient has been electively admitted to the hospital yesterday for her reimplantation revision total knee arthroplasty and removal of the nonbiodegradable drug delivery implant, procedure was completed on 03/31/2022 no cultures was done patient did have a aspirate from the right knee on 03/14/2020 which has been negative patient has been afebrile she did have a white count of 22,000 this morning patient was started on vancomycin infectious disease was consulted for further management of antibiotic therapy, patient currently denies having any fever or any chills she has been complaining of some sore throat but no other URI symptoms denies any chest pain or shortness of breath or cough no nausea vomiting no abdominal pain no diarrhea has been complaining of some pain right knee more for the laking to sharp 5-6 out of 10 no radiation and controlled with the current pain medication Review of Systems Positive point has been mentioned in the HPI rest of the systems are negative Past Medical History Past Medical History: Hyperlipidemia, Hypertension, Osteoarthritis (OA) Additional Past Medical History / Comment(s): ARTHRITIS LEFT HIP AND BACK. History of Any Multi-Drug Resistant Organisms: MRSA Year Discovered:: 01/05/22 MDRO Source:: Right Knee Past Surgical History: Appendectomy, Breast Surgery, Cholecystectomy, Heart C atheterization, Hysterectomy, Joint Replacement, Orthopedic Surgery, Tonsillectomy Additional Past Surgical History / Comment(s): RIGHT KNEE ARTHROSCOPY, RT TOTAL SHOULDER., TOTAL LEFT HIP (09/2014)x2. 10-27-15 TOTAL RT KNEE ARTHROPLASTY. re done meredith mastectomy no lymph node involvement, right hip x 1 Past Anesthesia/Blood Transfusion Reactions: No Reported Reaction Additional Past Anesthesia/Blood Transfusion Reaction / Comm: family hx ponv,usually is pre medicated Past Psychological History: No Psychological Hx Reported Smoking Status: Never smoker Past Alcohol Use History: None Reported Past Drug Use History: None Reported - Past Family History Mother Family Medical History: Cancer, Pulmonary Embolus Additional Family Medical History / Comment(s): breast cancer Sister(s) Family Medical History: Cancer, Hyperlipidemia Additional Family Medical History / Comment(s): TWO SISTERS HAD BREAST CANCER. Medications and Allergies Home Medications Medication Instructions Recorded Confirmed Type Multivitamin/Iron/Folic Acid 1 cap PO DAILY 05/23/21 03/27/22 History [Centrum Women Tablet] methocarbamoL [Robaxin-750] 750 mg PO HS 05/23/21 03/31/22 History Rosuvastatin Calcium [Crestor] 5 mg PO QAM 07/08/21 03/31/22 History Acetaminophen Tab [Tylenol] 500 mg PO Q6H 07/28/21 03/31/22 History Cholecalciferol [Vitamin D3 (25 50 mcg PO DAILY 08/15/21 03/27/22 History Mcg = 1000 Iu)] Vit C/E/Zn/Coppr/Lutein/Zeaxan 1 each PO BID 08/15/21 03/31/22 History [Preservision Areds 2 Softgel] Exemestane [Aromasin] 25 mg PO QAM 12/27/21 03/27/22 History Ferrous Sulfate [Feosol] 325 mg PO BID #1 tab 01/11/22 03/27/22 Rx Omeprazole 40 mg PO DAILY 30 Days #30 cap 01/11/22 03/27/22 Rx Sennosides-Docusate Sodium 2 each PO HS tab 01/11/22 03/31/22 Rx [Senokot-S] Aspirin 81 mg PO BID 30 Days #60 tab 03/31/22 Rx Docusate [Colace] 100 mg PO BID #60 capsule 03/31/22 Rx Omeprazole 40 mg PO DAILY 30 Days #30 cap 03/31/22 Rx HYDROcodone/APAP 10-325MG [Superior 1 tab PO Q6HR PRN 7 Days #30 tab 04/03/22 Rx 10-325] Doxycycline Hyclate 100 mg PO BID #60 tab 04/04/22 Rx hydrOXYzine pamoate [Vistaril] 25 mg PO Q6HR PRN #10 capsule 04/04/22 Rx lisinopriL [Zestril] 40 mg PO DAILY tab 04/04/22 Rx Allergies Allergy/AdvReac Type Severity Reaction Status Date / Time ibuprofen [From Motrin] AdvReac Unknown ELEVATED Verified 03/27/22 12:34 CREATININE Physical Exam Vitals: Vital Signs Temp Pulse Resp BP Pulse Ox 04/01/22 14:00 98.2 F 97 135/70 93 L 04/01/22 08:01 18 04/01/22 08:00 98.4 F 93 17 102/62 94 L 04/01/22 03:31 97.9 F 99 16 148/71 92 L 03/31/22 22:45 101 H 144/78 100 03/31/22 22:30 108 H 148/76 100 03/31/22 22:15 104 H 173/75 99 03/31/22 22:00 110 H 133/81 99 03/31/22 21:45 100 154/75 98 03/31/22 21:30 94 161/75 100 03/31/22 21:15 88 148/65 03/31/22 21:00 93 146/75 100 03/31/22 20:45 87 146/74 98 03/31/22 20:30 97.7 F 93 18 154/73 99 03/31/22 20:07 94 18 152/64 100 03/31/22 19:52 90 18 157/69 100 03/31/22 19:37 96 18 137/66 100 03/31/22 19:22 109 H 18 134/65 100 Intake and Output 04/01/22 04/01/22 04/01/22 06:59 14:59 22:59 Other: Voiding Method Indwelling Catheter Indwelling Catheter GENERAL DESCRIPTION: Jj female lying in bed, no distress. No tachypnea or accessory muscle of respiration use. HEENT: Shows Pallor , no scleral icterus. Oral mucous membrane is dry. No pharyngeal erythema or thrush NECK: Trachea central, no thyromegaly. LUNGS: Unlabored breathing. Decreased breath sounds at the base HEART: S1, S2, regular rate and rhythm. No loud murmur ABDOMEN: Soft, no tenderness , guarding or rigidity, no organomegaly EXTREMITIES: Right knee is currently dressed no drainage on the dressing SKIN: No rash, no masses palpable. NEUROLOGICAL: The patient is awake, alert, oriented x3, mood and affect normal. Results CBC & Chem 7: 04/04/22 03:47 04/04/22 03:47 Labs: Abnormal Lab Results - Last 24 Hours (Table) 04/01/22 04/01/22 Range/Units 07:53 07:53 WBC 22.05 H (4.50-10.00) X 10*3/uL RBC 2.80 L (4.10-5.20) X 10*6/uL Hgb 8.1 L (12.0-15.0) g/dL Hct 25.9 L (37.2-46.3) % MCHC 31.3 L (32.0-37.0) g/dL Immature Gran # 0.16 H (0.00-0.04) X 10*3/uL Neutrophils # 18.27 H (1.80-7.70) X 10*3/uL Monocytes # 2.11 H (0.20-1.00) X 10*3/uL Eosinophils # 0 L (0.04-0.35) X 10*3/uL Creatinine 1.40 H (0.52-1.04) mg/dL Assessment and Plan (1) History of total right knee replacement Status: Acute Priority: Medium Code(s): Z96.651 - PRESENCE OF RIGHT ARTIFICIAL KNEE JOINT SNOMED Code(s): 2757055445276 (2) Leukocytosis Status: Acute Code(s): D72.829 - ELEVATED WHITE BLOOD CELL COUNT, UNSPECIFIED SNOMED Code(s): 946352337 Plan: 1patient with right knee septic arthritis in this patient who did have a stage I procedure followed by more than 6 weeks of IV antibiotic therapy patient did have a negative culture from the right knee after completion of her antibiotic now is status post stage II procedure completed on 03/31/2022 with no mention of any purulence and no oral cultures were done. 2patient did have elevated white count this morning questionably reactive to re cent surgery as the patient currently do not have any fever or any obvious focus of infection. 3we will obtain blood cultures with a.m. lab repeat a CBC CRP. 4continue with the vancomycin empirically started We will follow on clinical condition and cultures to further adjust medication if needed Thank you for this consultation will follow this patient along with you Time with Patient: Greater than 30
[2022-04-02] MEDS: HYDROmorphone 0.5 MG/0.5 ML SYRINGE IVP PRN (01:05)
[2022-04-02] MEDS: LACTATED RINGERS 1,000 ML IV SCH ×3 (04:10→09:00)
[2022-04-02] MEDS: HYDROcodone/APAP 5-325MG 1 EACH TAB PO PRN (04:43)
[2022-04-02 05:18] LABS: Basophils % (A) 0 %; Eosinophils % (A) 0 %; HCT 23.6 % (34.0-46.0); HGB 7.9 gm/dL (11.4-16.0); Hypochromasia Slight; Lymphocytes % (A) 9 %; MCH 31.5 pg (25.0-35.0); MCHC 33.6 g/dL (31.0-37.0); MCV 93.8 fL (80.0-100.0); Mean Platelet Volume 9.1; Monocytes # (A) 0.8 k/uL (0-1.0); Monocytes % (A) 7 %; Neutrophils # (A) 9.2 k/uL (1.3-7.7); Neutrophils % (A) 82 %; Platelet Count 136 k/uL (150-450); RBC 2.51 m/uL (3.80-5.40); RDW 13.4 % (11.5-15.5); WBC 11.2 k/uL (3.8-10.6)
[2022-04-02 05:26] LABS: African American GFR (CKD) 50 (>60 ml/min/1.73 sqM); Anion Gap 5 mmol/L; Blood Urea Nitrogen 23 mg/dL (7-17); Calcium 8.2 mg/dL (8.4-10.2); Carbon Dioxide 24 mmol/L (22-30); Chloride 106 mmol/L (98-107); Glucose 116 mg/dL (74-99); Non-African American GFR(CKD) 43 (>60 ml/min/1.73 sqM); Potassium 4.6 mmol/L (3.5-5.1); Sodium 135 mmol/L (137-145)
[2022-04-02] MEDS: EXEMESTANE 25 MG PO SCH ×2 (07:52→08:59)
[2022-04-02] MEDS: ATORVASTATIN 10 MG TAB PO SCH (07:58)
[2022-04-02] MEDS: VIT A,C & E-LUTEIN-MINERALS 1 EACH TAB PO SCH ×2 (07:58→21:12)
[2022-04-02] MEDS: FERROUS SULFATE 325 MG TAB PO SCH ×2 (07:58→21:11)
[2022-04-02] MEDS: CHOLECALCIFEROL 25 MCG (1000 IU) TABLET PO SCH (07:58)
[2022-04-02] MEDS: PANTOPRAZOLE 40 MG TABLET PO SCH (07:58)
[2022-04-02] MEDS: MULTIVITAMINS, THERA 1 EACH TAB PO SCH (07:59)
[2022-04-02] MEDS: ASPIRIN 81 MG PO SCH ×2 (07:59→21:11)
[2022-04-02] MEDS: lisinopriL 20 MG TAB PO SCH (07:59)
--- NOTE | 2022-04-02 08:04 | P.PN ---
Subjective Progress Note Date: 04/02/22 Overall the patient is doing well as morning. She has pain in her right knee and up into her thigh. She had some nausea and dizziness yesterday but it is improved this morning. Objective - Vital Signs Vital signs: Vital Signs Temp 98.6 F 04/02/22 02:00 Pulse 109 H 04/02/22 02:00 Resp 18 04/02/22 02:00 BP 144/63 04/02/22 02:00 Pulse Ox 93 L 04/02/22 02:00 FiO2 Intake & Output 04/01/22 04/02/22 04/02/22 18:59 06:59 18:59 Output Total 2400 2800 Balance -2400 -2800 Output: Urine 2400 2800 Other: Voiding Method Indwelling Catheter Indwelling Catheter - Exam The patient is sitting up in her bed resting comfortably. She is alert and able to answer questions. On inspection of the patient's right leg surgical dressings are intact with no drainage or strike through. There is diffuse swelling throughout the calf and thigh. There is no erythema or warmth. Her thigh and calf are soft. Motor and sensory function are intact distally in her right foot. She has a palpable dorsalis pedis pulse. Her foot appears warm and well-perfused - Labs CBC & Chem 7: 04/02/22 04:46 04/02/22 04:46 Labs: Abnormal Lab Results - Last 24 Hours (Table) 04/01/22 04/01/22 04/02/22 Range/Units 07:53 07:53 04:46 WBC 22.05 H 11.2 H (4.50-10.00) X 10*3/uL RBC 2.80 L 2.51 L (4.10-5.20) X 10*6/uL Hgb 8.1 L 7.9 L (12.0-15.0) g/dL Hct 25.9 L 23.6 L (37.2-46.3) % MCHC 31.3 L (32.0-37.0) g/dL Plt Count 136 L (150-450) k/uL Immature Gran # 0.16 H (0.00-0.04) X 10*3/uL Neutrophils # 18.27 H 9.2 H (1.80-7.70) X 10*3/uL Monocytes # 2.11 H (0.20-1.00) X 10*3/uL Eosinophils # 0 L (0.04-0.35) X 10*3/uL Sodium (137-145) mmol/L BUN (7-17) mg/dL Creatinine 1.40 H (0.52-1.04) mg/dL Glucose (74-99) mg/dL Calcium (8.4-10.2) mg/dL 04/02/22 Range/Units 04:46 WBC (4.50-10.00) X 10*3/uL RBC (4.10-5.20) X 10*6/uL Hgb (12.0-15.0) g/dL Hct (37.2-46.3) % MCHC (32.0-37.0) g/dL Plt Count (150-450) k/uL Immature Gran # (0.00-0.04) X 10*3/uL Neutrophils # (1.80-7.70) X 10*3/uL Monocytes # (0.20-1.00) X 10*3/uL Eosinophils # (0.04-0.35) X 10*3/uL Sodium 135 L (137-145) mmol/L BUN 23 H (7-17) mg/dL Creatinine 1.25 H (0.52-1.04) mg/dL Glucose 116 H (74-99) mg/dL Calcium 8.2 L (8.4-10.2) mg/dL Assessment and Plan Assessment: Postoperative day #2 status post removal of right knee articulating antibiotic spacer and placement of a distal femoral replacing hinge and femoral prophylactic plate Plan: 1. Weightbearing as tolerated right lower extremity, mobilized up out of bed into chair is able, up with assistance and walker only 2. Leave dressings in place 3. DVT prophylaxis 4. Internal medicine for preoperative medical management 5. History of periprosthetic joint infection. No sign of intraoperative infection. A deep tissue culture was sent during surgery. Due to her history of MRSA infection and draining sinus I would like her on IV vancomycin until discharge after which I would like her on 3-6 months of chronic prophylactic suppression, choice of antibiotic per infectious disease 6. Disposition: The patient will likely require discharge to [facility] when she is medically stable and her cultures finalize likely tomorrow or Sunday
[2022-04-02] MEDS: HYDROcodone/APAP 10-325MG 1 EACH TAB PO PRN ×3 (10:55→21:12)
[2022-04-02] MEDS: hydrOXYzine pamoate 25 MG CAP PO PRN ×3 (11:00→21:11)
--- NOTE | 2022-04-02 15:52 | P.PN ---
Subjective Progress Note Date: 04/02/22 Principal diagnosis: Leukocytosis and a history of right knee septic arthritis MRSA Patient is a 72-year-old female with a past medical history significant for right knee septic arthritis secondary to MRSA, patient did have a stage I procedure completed few weeks ago and the patient afterwards completed more than 6-week course of IV vancomycin the patient has been electively admitted to the hospital for her reimplantation revision total knee arthroplasty and removal of the nonbiodegradable drug delivery implant, procedure was completed on 03/31/2022. on today's evaluation that is 04/02/2022, the patient denies having any fever or any chills, patient been combining of some cough which has been mostly mild and dry in nature no chest pain shortness of breath or cough pain to the right knee but controlled with the pain medication no vomiting or diarrhea Objective - Vital Signs Vital signs: Vital Signs Temp 99.3 F 04/02/22 14:00 Pulse 97 04/02/22 14:00 Resp 16 04/02/22 14:00 BP 153/66 04/02/22 14:00 Pulse Ox 91 L 04/02/22 14:00 FiO2 Intake & Output 04/01/22 04/02/22 04/02/22 18:59 06:59 18:59 Output Total 2400 2800 1500 Balance -2400 -2800 -1500 Output: Urine 2400 2800 1500 Other: Voiding Method Indwelling Catheter Indwelling Catheter Indwelling Catheter - Exam GENERAL DESCRIPTION: An elderly female lying in bed in no distress RESPIRATORY SYSTEM: Unlabored breathing , decreased breath sounds at bases HEART: S1 S2 regular rate and rhythm , ABDOMEN: Soft , no tenderness EXTREMITIES: Right knee incision is stress no drainage on the dressing - Labs CBC & Chem 7: 04/02/22 04:46 04/02/22 04:46 Labs: Abnormal Lab Results - Last 24 Hours (Table) 04/02/22 04/02/22 04/02/22 Range/Units 04:46 04:46 04:46 WBC 11.2 H (3.8-10.6) k/uL RBC 2.51 L (3.80-5.40) m/uL Hgb 7.9 L (11.4-16.0) gm/dL Hct 23.6 L (34.0-46.0) % Plt Count 136 L (150-450) k/uL Neutrophils # 9.2 H (1.3-7.7) k/uL Sodium 135 L (137-145) mmol/L BUN 23 H (7-17) mg/dL Creatinine 1.25 H (0.52-1.04) mg/dL Glucose 116 H (74-99) mg/dL Calcium 8.2 L (8.4-10.2) mg/dL Procalcitonin 0.36 H (0.02-0.09) ng/mL Assessment and Plan (1) Leukocytosis Current Visit: Yes Status: Acute Code(s): D72.829 - ELEVATED WHITE BLOOD CELL COUNT, UNSPECIFIED SNOMED Code(s): 320241058 (2) Septic joint of right knee joint Current Visit: No Status: Acute Code(s): M00.9 - PYOGENIC ARTHRITIS, UNSPECIFIED SNOMED Code(s): 350166497 Plan: 1patient with right knee septic arthritis in this patient who did have a stage I procedure followed by more than 6 weeks of IV antibiotic therapy patient did h ave a negative culture from the right knee after completion of her antibiotic now is status post stage II procedure completed on 03/31/2022 with no mention of any purulence and no OR cultures were done. 2patient did have elevated white count questionably reactive to recent surgery as the patient currently do not have any fever or any obvious focus of infection. 3the patient white count is down to 11,000 today integumentary markers are mildly elevated. 4the patient to continue with the vancomycin while waiting for the cultures to finalize Time with Patient: Less than 30
--- NOTE | 2022-04-02 18:52 | P.PN ---
Progress Note - Text Progress Note Date: 04/02/22 - Chief Complaint Right knee surgery - History of Present Illness This is a pleasant 62-sqhp-sbp-year-old patient who follows with Dr. Yao. Chronic stable medical conditions include hypertension, hyperlipidemia, osteoarthritis, history of bilateral mastectomy for breast cancer. About 5 years ago patient had right total knee arthroplasty, by Dr. Gonzalez. 3 years ago patient had a revision arthroplasty. November 2021 patient had scar tissue removed arthroscopically by Dr. Gonzalez. Following that patient started having infections. Did receive 2 courses of Bactrim was diagnosed to have MRSA. She was then referred to Dr. Ro. Patient was just completing a course of doxycycline. Denies any fever or chills. Appetite is fair. March 2022- complete removal of prosthesis and placement of antibiotic cement/pacer. She had a draining sinus that was removed. Received vancomycin for 7 weeks. Yesterday 03/31/2022 removal of antibiotics pacer. And reimplantation revision totally arthroplasty. By Dr. Ro. Sitting up in bed. Some pain present. Did tolerate her diet. No nausea vomiting. Daughter the bedside. 04/02/2022: Some pain in the right knee. Oral intake fair. at the bedside. On IV vancomycin. Decreased appetite. Continue IV fluids. Active Medications Hydrocodone Bitart/Acetaminophen (Hydrocodone/Apap 10-325mg 1 Each Tab) 1 each PO Q6H PRN PRN Reason: Pain Last Admin: 04/02/22 16:18 Dose: 1 each Aspirin (Aspirin 81 Mg) 81 mg PO BID [facility] Last Admin: 04/02/22 07:59 Dose: 81 mg Atorvastatin Calcium (Atorvastatin 10 Mg Tab) 10 mg PO QAM [facility] Last Admin: 04/02/22 07:58 Dose: 10 mg Cholecalciferol (Cholecalciferol 25 Mcg (1000 Iu) Tablet) 50 mcg PO DAILY [facility] Last Admin: 04/02/22 07:58 Dose: 50 mcg Ferrous Sulfate (Ferrous Sulfate 325 Mg Tab) 325 mg PO BID [facility] Last Admin: 04/02/22 07:58 Dose: 325 mg Hydromorphone HCl (Hydromorphone 0.5 Mg/0.5 Ml Syringe) 0.125 mg IVP Q3HR PRN PRN Reason: Pain Scale 1 to 3 Hydromorphone HCl (Hydromorphone 0.5 Mg/0.5 Ml Syringe) 0.5 mg IVP Q3HR PRN PRN Reason: Pain Scale 7 to 10 Last Admin: 04/02/22 01:05 Dose: 0.5 mg Hydromorphone HCl (Hydromorphone 0.5 Mg/0.5 Ml Syringe) 0.25 mg IVP Q3HR PRN PRN Reason: Pain Scale 4 to 6 Hydroxyzine Pamoate (Hydroxyzine Pamoate 25 Mg Cap) 25 mg PO Q4HR PRN PRN Reason: Nausea, Anxiety, Pain Control Last Admin: 04/02/22 16:18 Dose: 25 mg Lactated Ringer's (Lactated Ringers) 1,000 mls @ 20 mls/hr IV .Q24H [facility] Last Admin: 04/02/22 06:36 Dose: Not Given Lactated Ringer's (Lactated Ringers) 1,000 mls @ 100 mls/hr IV .Q10H [facility] Last Admin: 04/02/22 09:00 Dose: Not Given Vancomycin HCl 1,500 mg/ (Sodium Chloride) 500 mls @ 167 mls/hr IVPB Q24H [facility] Lisinopril (Lisinopril 20 Mg Tab) 40 mg PO DAILY [facility] Last Admin: 04/02/22 07:59 Dose: 40 mg Methocarbamol (Methocarbamol 750 Mg Tab) 750 mg PO HS [facility] Last Admin: 04/01/22 21:34 Dose: 750 mg Multivitamins (Multivitamins, Thera 1 Each Tab) 1 each PO DAILY [facility] Last Admin: 04/02/22 07:59 Dose: 1 each Multivitamins/Minerals (Vit A,C & P-Ayjftv-Uadampmi 1 Each Tab) 1 each PO BID [facility] Last Admin: 04/02/22 07:58 Dose: 1 each Naloxone HCl (Naloxone 0.4 Mg/Ml 1 Ml Vial) 0.2 mg IV Q2M PRN PRN Reason: Opioid Reversal Patient's Own ( Exemestane [Aromasin ] 25 Mg Tablet) 25 mg PO QAM [facility] Last Admin: 04/02/22 08:59 Dose: 25 mg Ondansetron HCl (Ondansetron 4 Mg/2 Ml Vial) 4 mg IVP Q8HR PRN PRN Reason: Nausea And Vomiting Last Admin: 04/01/22 17:35 Dose: 4 mg Pantoprazole Sodium (Pantoprazole 40 Mg Tablet) 40 mg PO DAILY [facility] Last Admin: 04/02/22 07:58 Dose: 40 mg Senna/Docusate Sodium (Sennosides-Docusate Sodium 1 Each Tab) 2 each PO HS [facility] Last Admin: 04/01/22 21:35 Dose: 2 each Past medical history to include: Hypertension, hyperlipidemia, osteoarthritis, infected right knee joint, breast cancer treated with bilateral mastectomy 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 Physical examination: VITAL SIGNS: 99.3, 97, 16, 153 basically 6, 91% room air GENERAL: , sitting up in bed, comfortable EYES: Pupils equal. Conjunctiva normal. HEENT: External appearance of nose and ears normal, oral cavity grossly normal. NECK: JVD not raised; masses not palpable. HEART: First and second heart sounds are normal; no edema. LUNGS: Respiratory rate normal; clear to auscultation. ABDOMEN: Soft, nontender, liver spleen not palpable, no masses palpable. PSYCH: Alert and oriented x3; mood and affect normal. MUSCULOSKELETAL:No Clubbing/cyanosis;muscles-grossly intact. Dressing over the right knee. Evidence of OA INVESTIGATIONS, reviewed in the clinical context: 04/02/2022: WBC 11.2 hemoglobin 7.9 platelets 136 potassium 4.6 BUN 23 creatinine 1.25 pro-calcitonin 0.36 04/01/2022: WBC 22.0 hemoglobin 8.1 platelets 190 creatinine 1.4 Assessment and plan: -Reimplantation, right knee hardware, removal of antibiotic spacer, with a prior history of right knee arthroplasty. With prior MRSA infection following arthroscope he By Dr. Ro on March. IV vancomycin -Primary osteoarthritis multiple joints bilaterally Pain medications as needed -Essential hypertension Zestril 40 mg a day -Hyperlipidemia Crestor 5 mg mg a day -Leukocytosis from infected right knee joint now removed -Normocytic anemia. Likely from chronic infection./Iron deficient -Breast cancer with history of bilateral mastectomy Continue Aromasin from home -Chronic kidney disease stage II likely nephrosclerosis Given patient's on vancomycin. 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 Patient continues using cane/walker . IV vancomycin. Follow renal function. Care was discussed the patient and . Activity per orthopedic. Thank you
[2022-04-02] MEDS: SENNOSIDES-DOCUSATE SODIUM 1 EACH TAB PO SCH (21:11)
[2022-04-02] MEDS: methocarbamoL 750 MG TAB PO SCH (21:12)
[2022-04-02] MEDS: VANCOMYCIN 1,500 MG in SODIUM CHLORIDE 0.9% 500 ML 500 ML IVPB SCH (21:22)
--- NOTE | 2022-04-02 22:50 | FL ---
EXAMINATION TYPE: FL guidance operating room DATE OF EXAM: 03/31/2022 CLINICAL HISTORY: Right knee prosthesis failure. TECHNIQUE: Fluoroscopy. COMPARISON: None. FINDINGS: Fluoroscopic guidance was provided during right knee prosthesis revision procedure perform ed by Dr. Ro. A total of 53 seconds of fluoroscopic time was utilized during the procedure and 0 spot images was acquired. IMPRESSION: As Above.
[2022-04-03] MEDS: HYDROcodone/APAP 10-325MG 1 EACH TAB PO PRN ×4 (03:10→19:05)
[2022-04-03] MEDS: hydrOXYzine pamoate 25 MG CAP PO PRN ×4 (03:11→19:05)
[2022-04-03] MEDS: LACTATED RINGERS 1,000 ML IV SCH ×4 (07:07→18:31)
[2022-04-03] MEDS: MULTIVITAMINS, THERA 1 EACH TAB PO SCH (07:57)
[2022-04-03] MEDS: PANTOPRAZOLE 40 MG TABLET PO SCH (07:57)
[2022-04-03] MEDS: FERROUS SULFATE 325 MG TAB PO SCH ×2 (07:57→20:41)
[2022-04-03] MEDS: lisinopriL 20 MG TAB PO SCH (07:57)
[2022-04-03] MEDS: CHOLECALCIFEROL 25 MCG (1000 IU) TABLET PO SCH (07:57)
[2022-04-03] MEDS: ATORVASTATIN 10 MG TAB PO SCH (07:57)
[2022-04-03] MEDS: VIT A,C & E-LUTEIN-MINERALS 1 EACH TAB PO SCH ×2 (07:58→21:09)
[2022-04-03] MEDS: ASPIRIN 81 MG PO SCH ×2 (07:58→20:41)
[2022-04-03] MEDS: EXEMESTANE 25 MG PO SCH (07:59)
[2022-04-03 08:38] LABS: Basophils # (A) 0.05 X 10*3/uL (0.00-0.10); Basophils % (A) 0.7 %; Eosinophils # (A) 0.22 X 10*3/uL (0.04-0.35); HCT 22.5 % (37.2-46.3); Lymphocytes # (A) 0.91 X 10*3/uL (0.90-5.00); Lymphocytes % (A) 12.4 %; MCH 29.4 pg (27.0-32.0); MCHC 31.1 g/dL (32.0-37.0); MCV 94.5 fL (80.0-97.0); Mean Platelet Volume 12.3 fL (9.5-12.2); Monocytes # (A) 0.79 X 10*3/uL (0.20-1.00); Monocytes % (A) 10.8 %; NRBC Per 100 WBC 0 /100 WBCS (0.0-0.0); Neutrophils # (A) 5.29 X 10*3/uL (1.80-7.70); Neutrophils % (A) 72.1 %; Platelet Count 146 X 10*3/uL (140-440); RBC 2.38 X 10*6/uL (4.10-5.20); WBC 7.33 X 10*3/uL (4.50-10.00)
[2022-04-03] MEDS ORDERED: SODIUM FERRIC GLUCONAT-SUCROSE 125 MG in SODIUM CHLORIDE 0.9% 100 ML IVPB SCH (09:00)
--- NOTE | 2022-04-03 12:54 | P.PN ---
Subjective Progress Note Date: 04/03/22 This patient is a 72- year old female who is status-post removal of right knee articulating antibiotic spacer, placement of a distal femoral replacing hinge and femoral prophylactic plate on 03/31/22. Today is post-operative day #3. Patient is examined bedside. She is up to the bedside chair. Patient states pain is well-controlled at this time. Hemoglobin resulted at 7.0 this morning and medicine has ordered 1 unit of PRBCs. Patient denies chest pain, shortness of breath. Vital signs are stable. Objective - Vital Signs Vital signs: Vital Signs Temp 98.6 F 04/03/22 08:04 Pulse 93 04/03/22 08:04 Resp 20 04/03/22 08:13 BP 111/71 04/03/22 08:04 Pulse Ox 91 L 04/03/22 08:04 FiO2 Intake & Output 04/02/22 04/03/22 04/03/22 18:59 06:59 18:59 Intake Total 400 Output Total 1500 1900 Balance -1100 -1900 Intake: Oral 400 Output: Urine 1500 1900 Other: Voiding Method Indwelling Catheter Indwelling Catheter Bedside Commode - Exam On examination, patient is sitting up in the bed to chair in no apparent distress. She is alert and oriented 3. On inspection of her right knee, there is a clean, dry, intact Opsite dressing in place. There is mild swelling of the knee. No bleeding or drainage through the dressing. Motor and sensory function is intact of the right lower extremity. Right dorsalis pedis pulse easily palpable. Calf is soft and nontender to palpation. - Labs CBC & Chem 7: 04/03/22 05:37 04/03/22 05:37 Labs: Abnormal Lab Results - Last 24 Hours (Table) 04/03/22 04/03/22 04/03/22 Range/Units 05:37 05:37 10:57 RBC 2.38 L (4.10-5.20) X 10*6/uL Hgb 7.0 L (12.0-15.0) g/dL Hct 22.5 L (37.2-46.3) % MCHC 31.1 L (32.0-37.0) g/dL MPV 12.3 H (9.5-12.2) fL Immature Gran # 0.07 H (0.00-0.04) X 10*3/uL Creatinine 1.09 H (0.52-1.04) mg/dL Crossmatch See Detail Microbiology - Last 24 Hours (Table) 03/31/22 18:29 Anaerobic Culture - Preliminary Knee - Right 03/31/22 18:29 Gram Stain - Preliminary Knee - Right Tissue Culture - Preliminary Assessment and Plan Assessment: Status-post removal of right knee articulating antibiotic spacer, placement of a distal femoral replacing hinge and femoral prophylactic plate on 03/31/22. Post- operative day #3. Plan: - Weight bear to tolerance on operative extremity with a walker. Up with assistance. - Physical therapy for gait and balance training. - Keep operative dressing intact. - Pain medication as needed. Aspirin 81mg BID for DVT prophylaxis. - Hemoglobin 7.0 this morning and 1 unit of PRBCs has been ordered per internal medicine. - Continue IV vancomycin while inpatient. - Anticipate discharge to rehab tomorrow if medically cleared.
--- NOTE | 2022-04-03 14:33 | P.PN ---
Progress Note - Text Progress Note Date: 04/03/22 - Chief Complaint Right knee surgery Hospital course This is a pleasant 67-vlpx-op[age]-year-old patient who follows with Dr. Yao. Chronic stable medical conditions include hypertension, hyperlipidemia, osteoarthritis, history of bilateral mastectomy for breast cancer. About 5 years ago patient had right total knee arthroplasty, by Dr. Gonzalez. 3 years ago patient had a revision arthroplasty. November 2021 patient had scar tissue removed arthroscopically by Dr. Gonzalez. Following that patient started having infections. Did receive 2 courses of Bactrim was diagnosed to have MRSA. She was then referred to Dr. Ro. Patient was just completing a course of doxycycline. Denies any fever or chills. Appetite is fair. March 2022- complete removal of prosthesis and placement of antibiotic cement/pacer. She had a draining sinus that was removed. Received vancomycin for 7 weeks. Yesterday 03/31/2022 removal of antibiotics pacer. And reimplantation revision totally arthroplasty. By Dr. Ro. Sitting up in bed. Some pain present. Did tolerate her diet. No nausea vomiting. Daughter the bedside. 04/02/2022: Some pain in the right knee. Oral intake fair. at the bedside. On IV vancomycin. Decreased appetite. Continue IV fluids. 04/03/2022: Did work with physical therapy. Pain present. Feeling weak and tired. Slightly dizzy. Hemoglobin down to 7.1. Order a unit of blood for symptomatic anemia. Also give IV iron. Discussed with patient. Active Medications Hydrocodone Bitart/Acetaminophen (Hydrocodone/Apap 10-325mg 1 Each Tab) 1 each PO Q6H PRN PRN Reason: Pain Last Admin: 04/03/22 13:31 Dose: 1 each Aspirin (Aspirin 81 Mg) 81 mg PO BID [facility] Last Admin: 04/03/22 07:58 Dose: 81 mg Atorvastatin Calcium (Atorvastatin 10 Mg Tab) 10 mg PO QAM [facility] Last Admin: 04/03/22 07:57 Dose: 10 mg Cholecalciferol (Cholecalciferol 25 Mcg (1000 Iu) Tablet) 50 mcg PO DAILY [facility] Last Admin: 04/03/22 07:57 Dose: 50 mcg Ferrous Sulfate (Ferrous Sulfate 325 Mg Tab) 325 mg PO BID [facility] Last Admin: 04/03/22 07:57 Dose: 325 mg Hydromorphone HCl (Hydromorphone 0.5 Mg/0.5 Ml Syringe) 0.125 mg IVP Q3HR PRN PRN Reason: Pain Scale 1 to 3 Hydromorphone HCl (Hydromorphone 0.5 Mg/0.5 Ml Syringe) 0.5 mg IVP Q3HR PRN PRN Reason: Pain Scale 7 to 10 Last Admin: 04/02/22 01:05 Dose: 0.5 mg Hydromorphone HCl (Hydromorphone 0.5 Mg/0.5 Ml Syringe) 0.25 mg IVP Q3HR PRN PRN Reason: Pain Scale 4 to 6 Hydroxyzine Pamoate (Hydroxyzine Pamoate 25 Mg Cap) 25 mg PO Q4HR PRN PRN Reason: Nausea, Anxiety, Pain Control Last Admin: 04/03/22 13:32 Dose: 25 mg Lactated Ringer's (Lactated Ringers) 1,000 mls @ 20 mls/hr IV .Q24H [facility] Last Admin: 04/03/22 07:07 Dose: Not Given Lactated Ringer's (Lactated Ringers) 1,000 mls @ 100 mls/hr IV .Q10H [facility] Last Admin: 04/03/22 08:01 Dose: 100 mls/hr Vancomycin HCl 1,500 mg/ (Sodium Chloride) 500 mls @ 167 mls/hr IVPB Q24H [facility] Last Admin: 04/02/22 21:22 Dose: 167 mls/hr Lisinopril (Lisinopril 20 Mg Tab) 40 mg PO DAILY [facility] Last Admin: 04/03/22 07:57 Dose: 40 mg Methocarbamol (Methocarbamol 750 Mg Tab) 750 mg PO HS [facility] Last Admin: 04/02/22 21:12 Dose: 750 mg Multivitamins (Multivitamins, Thera 1 Each Tab) 1 each PO DAILY [facility] Last Admin: 04/03/22 07:57 Dose: 1 each Multivitamins/Minerals (Vit A,C & U-Uimlil-Oxnfukrl 1 Each Tab) 1 each PO BID [facility] Last Admin: 04/03/22 07:58 Dose: 1 each Naloxone HCl (Naloxone 0.4 Mg/Ml 1 Ml Vial) 0.2 mg IV Q2M PRN PRN Reason: Opioid Reversal Patient's Own ( Exemestane [Aromasin ] 25 Mg Tablet) 25 mg PO QAM [facility] Last Admin: 04/03/22 07:59 Dose: 25 mg Ondansetron HCl (Ondansetron 4 Mg/2 Ml Vial) 4 mg IVP Q8HR PRN PRN Reason: Nausea And Vomiting Last Admin: 04/01/22 17:35 Dose: 4 mg Pantoprazole Sodium (Pantoprazole 40 Mg Tablet) 40 mg PO DAILY [facility] Last Admin: 04/03/22 07:57 Dose: 40 mg Senna/Docusate Sodium (Sennosides-Docusate Sodium 1 Each Tab) 2 each PO HS [facility] Last Admin: 04/02/22 21:11 Dose: 2 each Past medical history to include: Hypertension, hyperlipidemia, osteoarthritis, infected right knee joint, breast cancer treated with bilateral mastectomy 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 Physical examination: VITAL SIGNS: 98.1, 91, 17, 133/61, 93% room air GENERAL: , sitting up in bed, comfortable, tired EYES: Pupils equal. Conjunctiva normal. HEENT: External appearance of nose and ears normal, oral cavity grossly normal. NECK: JVD not raised; masses not palpable. HEART: First and second heart sounds are normal; no edema. LUNGS: Respiratory rate normal; clear to auscultation. ABDOMEN: Soft, nontender, liver spleen not palpable, no masses palpable. PSYCH: Alert and oriented x3; mood and affect normal. MUSCULOSKELETAL:No Clubbing/cyanosis;muscles-grossly intact. Dressing over the right knee. Evidence of OA INVESTIGATIONS, reviewed in the clinical context: 04/03/2022: White count 7.3 hemoglobin 7 platelets 146 creatinine 1.09 04/02/2022: WBC 11.2 hemoglobin 7.9 platelets 136 potassium 4.6 BUN 23 creatinine 1.25 pro-calcitonin 0.36 04/01/2022: WBC 22.0 hemoglobin 8.1 platelets 190 creatinine 1.4 Previous labs: Hemoglobin 13.4 on March 21 Assessment and plan: -Reimplantation, right knee hardware, removal of antibiotic spacer, with a prior history of right knee arthroplasty. With prior MRSA infection following arthroscope he By Dr. Ro on March. IV vancomycin -Acute symptomatic postprocedure blood loss anemia: Diagnosis Hemoglobin 7. Transfuse 1 unit of blood. -Primary osteoarthritis multiple joints bilaterally Pain medications as needed -Essential hypertension Zestril 40 mg a day -Hyperlipidemia Crestor 5 mg mg a day -Leukocytosis from infected right knee joint now removed -Normocytic anemia. Likely from chronic infection./Iron deficient -Breast cancer with history of bilateral mastectomy Continue Aromasin from home -Chronic kidney disease stage II likely nephrosclerosis Given patient's on vancomycin. 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 Patient continues using cane/walker . IV vancomycin. Patient symptomatically drop in hemoglobin. Transfuse 1 unit of blood. Discussed with patient. Other medications to continue. PTOT to continue. IV Ferrlecit Thank you
[2022-04-03] MEDS: SODIUM FERRIC GLUCONAT-SUCROSE 125 MG in SODIUM CHLORIDE 0.9% 100 ML IVPB SCH (18:59)
[2022-04-03] MEDS: SENNOSIDES-DOCUSATE SODIUM 1 EACH TAB PO SCH (20:41)
[2022-04-03] MEDS: VANCOMYCIN 1,500 MG in SODIUM CHLORIDE 0.9% 500 ML 500 ML IVPB SCH (20:41)
[2022-04-03] MEDS: methocarbamoL 750 MG TAB PO SCH (21:09)
[2022-04-04] MEDS: HYDROcodone/APAP 10-325MG 1 EACH TAB PO PRN ×3 (02:20→15:10)
[2022-04-04] MEDS: hydrOXYzine pamoate 25 MG CAP PO PRN ×3 (02:20→15:10)
[2022-04-04 04:13] LABS: Basophils % (A) 1 %; Eosinophils # (A) 0.2 k/uL (0-0.7); Eosinophils % (A) 4 %; HCT 24.3 % (34.0-46.0); HGB 8.1 gm/dL (11.4-16.0); Hypochromasia Slight; Lymphocytes % (A) 19 %; MCH 30.8 pg (25.0-35.0); MCHC 33.2 g/dL (31.0-37.0); MCV 92.7 fL (80.0-100.0); Mean Platelet Volume 9.6; Monocytes # (A) 0.6 k/uL (0-1.0); Monocytes % (A) 12 %; Neutrophils # (A) 3.2 k/uL (1.3-7.7); Neutrophils % (A) 61 %; Platelet Count 153 k/uL (150-450); RBC 2.62 m/uL (3.80-5.40); RDW 13.8 % (11.5-15.5); WBC 5.2 k/uL (3.8-10.6)
[2022-04-04 04:25] LABS: African American GFR (CKD) 56 (>60 ml/min/1.73 sqM); Anion Gap 3 mmol/L; Blood Urea Nitrogen 16 mg/dL (7-17); Carbon Dioxide 27 mmol/L (22-30); Chloride 106 mmol/L (98-107); Glucose 117 mg/dL (74-99); Non-African American GFR(CKD) 48 (>60 ml/min/1.73 sqM); Potassium 3.8 mmol/L (3.5-5.1); Sodium 136 mmol/L (137-145)
[2022-04-04] MEDS: LACTATED RINGERS 1,000 ML IV SCH ×3 (08:06→16:43)
[2022-04-04 08:16] VITALS: RESP 18
--- NOTE | 2022-04-04 08:17 | P.DS ---
Providers Date of admission: 03/31/22 11:06 Expected date of discharge: 04/04/22 Attending physician: Ray Ro Consults: 03/31/22 19:26 Consult Physician Routine Consulting Provider: Danilo Tinoco Consult Reason/Comments: medical management Do you want consulting provider notified?: Yes 03/31/22 19:27 Consult Physician Routine Consulting Provider: Lenora Burks Consult Reason/Comments: stage 2 revision periprosthetic joint injection Do you want consulting provider notified?: Yes Primary care physician: [facility] Hospital Course: This is a 72-year-old female who has a history of long-standing issues with the right knee. 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 She received 6 weeks of IV antibiotics followed for a 2 week holiday. Her knee was aspirated and there was no sign of infection. Surgical options were discussed and patient elected to undergo removal of right knee articulating antibiotic spacer, placement of a distal femoral replacing hinge, with femoral prophylactic plating 03/31/[address] Ro. The patient is seen preoperatively by Dr. Yao and cleared for surgery. The patient is admitted to [facility] following her procedure. The procedures performed without complication or sequelae. Patient's hemoglobin did result as 7.0 yesterday and patient was transfused one unit of PRBCs. Hemoglobin is up to 8.1 today. Patient is doing well postoperatively. Vital signs are stable at discharge. Labs are stable at discharge. Today is post-operative day #4. Patient is examined bedside this morning with Dr. Ro. She is up to the bedside chair. She states the pain radiates well-controlled on oral medication. She is ambulating short distances with her walker. She is voiding freely. She has had bowel movements postoperatively. She is tolerating her diet well. There are no complaints or concerns at this time. On inspection, the patient is sitting up in the bedside chair in no apparent distress. She is alert and oriented 3. On inspection of her right knee, there is a clean, dry, intact OpSite dressing in place. There is mild swelling of the knee. Motor and sensory function is intact of the right lower extremity. Right lower extremity warm and well-perfused. Calf is soft and nontender to palpation. The patient is discharged to rehab on postop day #1 pending medical clearance. Please see orders and refer to the [facility] for accurate list of medications. Plan - Discharge Summary Discharge Rx Participant: No New Discharge Prescriptions: New Aspirin 81 mg PO BID 30 Days #60 tab Omeprazole 40 mg PO DAILY 30 Days #30 cap hydrOXYzine pamoate [Vistaril] 25 mg PO Q6HR PRN #10 capsule PRN Reason: Nausea, Anxiety, Pain Control Docusate [Colace] 100 mg PO BID #60 capsule HYDROcodone/APAP 10-325MG [[place] 10-325] 1 tab PO Q6HR PRN 7 Days #30 tab PRN Reason: Pain No Action amLODIPine BESYLATE/BENAZEPRIL [Lotrel 10-20 MG] 1 cap PO QAM Rosuvastatin Calcium [Crestor] 5 mg PO QAM Acetaminophen Tab [Tylenol] 500 mg PO Q6H Cholecalciferol [Vitamin D3 (25 Mcg = 1000 Iu)] 50 mcg PO DAILY HYDROcodone/APAP 10-325MG [[place] 10-325] 1 tab PO Q6HR PRN 7 Days #28 tab PRN Reason: Pain methocarbamoL [Robaxin-750] 750 mg PO HS Multivitamin/Iron/Folic Acid [Centrum Women Tablet] 1 cap PO DAILY Vit C/E/Zn/Coppr/Lutein/Zeaxan [Preservision Areds 2 Softgel] 1 each PO BID Exemestane [Aromasin] 25 mg PO QAM Omeprazole 40 mg PO DAILY 30 Days #30 cap Sennosides-Docusate Sodium [Senokot-S] 2 each PO HS tab Ferrous Sulfate [Feosol] 325 mg PO BID #1 tab Discharge Medication List amLODIPine BESYLATE/BENAZEPRIL [Lotrel 10-20 MG] 1 cap PO QAM 09/21/14 [History] Multivitamin/Iron/Folic Acid [Centrum Women Tablet] 1 cap PO DAILY 05/23/21 [History] methocarbamoL [Robaxin-750] 750 mg PO HS 05/23/21 [History] Rosuvastatin Calcium [Crestor] 5 mg PO QAM 07/08/21 [History] Acetaminophen Tab [Tylenol] 500 mg PO Q6H 07/28/21 [History] Cholecalciferol [Vitamin D3 (25 Mcg = 1000 Iu)] 50 mcg PO DAILY 08/15/21 [History] Vit C/E/Zn/Coppr/Lutein/Zeaxan [Preservision Areds 2 Softgel] 1 each PO BID 08/15/21 [History] Exemestane [Aromasin] 25 mg PO QAM 12/27/21 [History] HYDROcodone/APAP 10-325MG [[place] 10-325] 1 tab PO Q6HR PRN 7 Days #28 tab 01/10/22 [Rx] Ferrous Sulfate [Feosol] 325 mg PO BID #1 tab 01/11/22 [Rx] Omeprazole 40 mg PO DAILY 30 Days #30 cap 01/11/22 [Rx] Sennosides-Docusate Sodium [Senokot-S] 2 each PO HS tab 01/11/22 [Rx] Aspirin 81 mg PO BID 30 Days #60 tab 03/31/22 [Rx] Docusate [Colace] 100 mg PO BID #60 capsule 03/31/22 [Rx] Omeprazole 40 mg PO DAILY 30 Days #30 cap 03/31/22 [Rx] HYDROcodone/APAP 10-325MG [[place] 10-325] 1 tab PO Q6HR PRN 7 Days #30 tab 04/03/22 [Rx] hydrOXYzine pamoate [Vistaril] 25 mg PO Q6HR PRN #10 capsule 04/04/22 [Rx] Follow up Appointment(s)/Referral(s): aRy Ro MD [Medical Doctor] - 2 Weeks Activity/Diet/Wound Care/Special Instructions: Weight bear to tolerance on operative extremity with a walker. Keep operative dressing intact until follow-up appointment in the office. Call the office if dressing becomes saturated or falls off. May shower over dressing. Take pain medications as prescribed. Take aspirin 81mg BID x 4 weeks for blood clot prevention. Follow-up in the office in two weeks at [facility]. Call the office with any questions or concerns, Discharge Disposition: TRANSFER TO SNF/ECF
[2022-04-04] MEDS: lisinopriL 20 MG TAB PO SCH (09:35)
[2022-04-04] MEDS: CHOLECALCIFEROL 25 MCG (1000 IU) TABLET PO SCH (09:35)
[2022-04-04] MEDS: ASPIRIN 81 MG PO SCH (09:35)
[2022-04-04] MEDS: ATORVASTATIN 10 MG TAB PO SCH (09:35)
[2022-04-04] MEDS: PANTOPRAZOLE 40 MG TABLET PO SCH (09:35)
[2022-04-04] MEDS: MULTIVITAMINS, THERA 1 EACH TAB PO SCH (09:35)
[2022-04-04] MEDS: FERROUS SULFATE 325 MG TAB PO SCH (09:35)
[2022-04-04] MEDS: SODIUM FERRIC GLUCONAT-SUCROSE 125 MG in SODIUM CHLORIDE 0.9% 100 ML IVPB SCH (09:36)
[2022-04-04] MEDS: EXEMESTANE 25 MG PO SCH (09:36)
[2022-04-04] MEDS: VIT A,C & E-LUTEIN-MINERALS 1 EACH TAB PO SCH (09:36)
--- NOTE | 2022-04-04 10:31 | CDI ---
Documentation Clarification Form Date: 04/03/2022 12:57:00 PM From: Bev Tejeda RN, CCDS Admit Date: 03/31/2022 11:06:00 AM Patient Name: Erika Morin Visit Number: [id number] Discharge Date: ATTENTION: The Clinical Documentation Specialists (CDI) and [facility] Coding Staff appreciate your assistance in clarifying documentation. Please respond to the clarification below the line at the bottom and electronically sign. The CDI & [facility] Coding staff will review the response and follow-up if needed. Please note: Queries are made part of the Legal Health Record. If you have any questions, please contact the author of this message via ITS. Dr. Ray Ro A debridement is documented in the operate note on 03/31/22. Additional clarification regarding the procedure is requested. History/Risk Factors: History of infected right total knee replacement with draining sinus, Severe Arthrofibrosis right total knee replacement, Hypertension Clinical Indicators: 72-year-old female present for elective reimplantation revision total knee arthroplasty, removal nonbiodegradable drug delivery implant. Operate note has a thorough debridement of all soft tissue including the gutters and posterior sift tissue of the knee was preformed Treatment: 3/L of sterile saline and pulsatile lavage Reimplantation revision total knee arthroplasty as part of a staged procedure Please clarify the type of procedure performed: [ ] Excisional debridement (the removal of necrotic, devitalized tissue or slough by means of cutting away of tissue) [ ] Non-excisional debridement (the removal of necrotic, devitalized tissue or slough by means of flushing, brushing, or washing. (Irrigation) [ ] Other; please specify [ ] Unable to determine Five elements required for accurate and compliant documentation of a debridement: Technique used (e.g., excisional, excised, cutting, brushing, jet lavage etc.) Instrument(s) used (e.g., scalpel, curette, etc.) Nature of the tissue removed (e.g., necrotic, devitalized tissues, non-viable tissue, etc.) Appearance and size of the wound (e.g., down to fresh bleeding tissue, 7cm x 10cm, etc.) Depth of the debridement* (e.g., skin, subcutaneous tissue, fascia, muscle, bone, etc.) (Template Last Revised: July 2020) An excisional debridement was performed using a scalpel of all non-viable appearing skin, subcutaneous tissue, joint capsule, and ligaments down to bone. Addendum Dictated By:Ray Ro MD Addendum Signed By: <Electronically signed by Ray Ro MD> 04/13/22 0628 [facility]
--- NOTE | 2022-04-04 11:19 | CDI ---
Documentation Clarification Form Date: 04/04/2022 10:42:45 AM From: Bev Tejeda RN, CCDS Admit Date: 03/31/2022 11:06:00 AM Patient Name: Erika Morin Visit Number: [id number] Discharge Date: ATTENTION: The Clinical Documentation Specialists (CDI) and [facility] Coding Staff appreciate your assistance in clarifying documentation. Please respond to the clarification below the line at the bottom and electronically sign. The CDI & [facility] Coding staff will review the response and follow-up if needed. Please note: Queries are made part of the Legal Health Record. If you have any questions, please contact the author of this message via ITS. Dr. Ray Ro Acute symptomatic post procedure blood loss anemia is documented in the internal medicine progress note on 04/03/22 and patient had Reimplantation, revision total knee arthroplasty, right knee complex. Removal nonbiodegradable drug delivery implant. Additional clarification is requested regarding the relationship, if any, that exists between the diagnosis and the procedure. 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 Removal nonbiodegradable drug delivery implant. History/Risk Factors: Hypertension, Primary osteoarthritis multiple joints bilaterally. 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 Present for elective procedure on 03/31/22. 04/01 HGB 8.1 HCT 25.9 04/02 HGB 7.9 HCT 23.6 04/03 HGB 7.0 HCT 22.5 04/04 HGB 8.1 HCT 24.3 Treatment: Monitor CBC Transfuse 1 unit PRBC Feosol 325 MG PO BID Theragran 1 PO DAILY, Ivite 1 PO BID Ferric sodium gluconate 125 mg IVPB X 2 BAGS What relationship, if any, exists between the diagnosis of acute blood loss anemia and the procedure? [ ] Acute blood loss anemia is a complication of surgical procedure [ ] Acute blood loss anemia is an expected outcome of the surgical procedure [ ] Acute blood loss is related to patients co-morbid condition(s) of [insert co-morbid dxs] & not a complication of the procedure [ ] Other please specify ____ [ ] Unable to determine (Template Last Revised: July 2020) Acute blood loss anemia is a complication of the procedure, is expected from her extensive revision procedure AND is due to her co-morbidities particularly her BMI. Addendum Dictated By:Ray Ro MD Addendum Signed By: <Electronically signed by Ray Ro MD> MTDD
[2022-04-04 14:34] VITALS: BP 134/75; PULSE 93; TEMP 98.1
--- NOTE | 2022-04-04 16:23 | US ---
EXAMINATION TYPE: US venous doppler duplex LE DATE OF EXAM: 04/04/2022 4:10 PM COMPARISON: NONE CLINICAL HISTORY: postop swelling, pain. bilateral edema, right total nee 4 days ago, no h/o dvt SIDE PERFORMED: Bilateral TECHNIQUE: The lower extremity deep venous system is examined utilizing real time linear array sonog avelina with graded compression, doppler sonography and color-flow sonography. VESSELS IMAGED: Common Femoral Vein Deep Femoral Vein Greater Saphenous Vein * Femoral Vein Popliteal Vein Small Saphenous Vein * Proximal Calf Veins (* superficial vessels) limited study due to large habitus, crying and unable to tolerate any pressure. Right Leg: Negative for DVT Left Leg: Negative for DVT Grayscale, color doppler, spectral doppler imaging performed of the deep veins of the bilateral lower extremities. There is normal flow and vascular waveforms. IMPRESSION: Suboptimal study without convincing evidence for acute DVT in either lower extremity.
--- NOTE | 2022-04-04 21:29 | P.PN ---
Progress Note - Text Progress Note Date: 04/04/22 - Chief Complaint Right knee surgery Hospital course This is a pleasant 64-bwlc-nur-year-old patient who follows with Dr. Yao. Chronic stable medical conditions include hypertension, hyperlipidemia, osteoarthritis, history of bilateral mastectomy for breast cancer. About 5 years ago patient had right total knee arthroplasty, by Dr. Gonzalez. 3 years ago patient had a revision arthroplasty. November 2021 patient had scar tissue removed arthroscopically by Dr. Gonzalez. Following that patient started having infections. Did receive 2 courses of Bactrim was diagnosed to have MRSA. She was then referred to Dr. Ro. Patient was just completing a course of doxycycline. Denies any fever or chills. Appetite is fair. March 2022- complete removal of prosthesis and placement of antibiotic cement/pacer. She had a draining sinus that was removed. Received vancomycin for 7 weeks. Yesterday 03/31/2022 removal of antibiotics pacer. And reimplantation revision totally arthroplasty. By Dr. Ro. Sitting up in bed. Some pain present. Did tolerate her diet. No nausea vomiting. Daughter the bedside. 04/02/2022: Some pain in the right knee. Oral intake fair. at the bedside. On IV vancomycin. Decreased appetite. Continue IV fluids. 04/03/2022: Did work with physical therapy. Pain present. Feeling weak and tired. Slightly dizzy. Hemoglobin down to 7.1. Order a unit of blood for symptomatic anemia. Also give IV iron. Discussed with patient. 04/04/2022: Doing better. Did walk a few steps with therapy. Hemoglobin 8.1. Feeling better. Going to rehab today. Care was discussed with the patient. 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 Physical examination: VITAL SIGNS: 98.1, 93, 18, 134/75, 96% room air GENERAL: , sitting up in bed, comfortable, EYES: Pupils equal. Conjunctiva normal. HEENT: External appearance of nose and ears normal, oral cavity grossly normal. NECK: JVD not raised; masses not palpable. HEART: First and second heart sounds are normal; no edema. LUNGS: Respiratory rate normal; clear to auscultation. ABDOMEN: Soft, nontender, liver spleen not palpable, no masses palpable. PSYCH: Alert and oriented x3; mood and affect normal. MUSCULOSKELETAL:No Clubbing/cyanosis;muscles-grossly intact. Dressing over the right knee. Evidence of OA INVESTIGATIONS, reviewed in the clinical context: 04/04/2022: White count 5.2 hemoglobin 8.1 progression 3.8 creatinine 1.13 04/03/2022: White count 7.3 hemoglobin 7 platelets 146 creatinine 1.09 04/02/2022: WBC 11.2 hemoglobin 7.9 platelets 136 potassium 4.6 BUN 23 creatinine 1.25 pro-calcitonin 0.36 04/01/2022: WBC 22.0 hemoglobin 8.1 platelets 190 creatinine 1.4 Previous labs: Hemoglobin 13.4 on March 21 Assessment and plan: -Reimplantation, right knee hardware, removal of antibiotic spacer, with a prior history of right knee arthroplasty. With prior MRSA infection following arthroscope he By Dr. Ro on March. IV vancomycin -Acute symptomatic postprocedure blood loss anemia: Receive 2 units of blood. -Primary osteoarthritis multiple joints bilaterally Pain medications as needed -Essential hypertension Zestril 40 mg a day -Hyperlipidemia Crestor 5 mg mg a day -Leukocytosis from infected right knee joint now removed -Normocytic anemia. Likely from chronic infection./Iron deficient -Breast cancer with history of bilateral mastectomy Continue Aromasin from home -Chronic kidney disease stage II likely nephrosclerosis Given patient's on vancomycin. 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 Patient continues using cane/walker Care was discussed with the patient. Follow CBC BMP. Follow with PCP. Thank you
[2022-04-05] MEDS ORDERED: VANCOMYCIN TROUGH DUE 1 EACH MISC MISCELLANE ONE (20:00)
--- NOTE | 2022-04-11 23:55 | P.PN ---
Subjective Progress Note Date: 04/03/22 Principal diagnosis: Leukocytosis and a history of right knee septic arthritis MRSA Patient is a 72-year-old female with a past medical history significant for right knee septic arthritis secondary to MRSA, patient did have a stage I procedure completed few weeks ago and the patient afterwards completed more than 6-week course of IV vancomycin the patient has been electively admitted to the hospital for her reimplantation revision total knee arthroplasty and removal of the nonbiodegradable drug delivery implant, procedure was completed on 03/31/2022. on today's evaluation that is 04/03/2022, the patient remains to be afebrile, the patient is breathing comfortably patient did have occasional dry cough and no sputum no nausea no vomiting no abdominal pain no diarrhea. Pain to the right knee is currently controlled Objective - Vital Signs Vital signs: Vital Signs Temp 98.6 F 04/03/22 08:04 Pulse 93 04/03/22 08:04 Resp 20 04/03/22 08:13 BP 111/71 04/03/22 08:04 Pulse Ox 91 L 04/03/22 08:04 FiO2 Intake & Output 04/02/22 04/03/22 04/03/22 18:59 06:59 18:59 Intake Total 400 Output Total 1500 1900 Balance -1100 -1900 Intake: Oral 400 Output: Urine 1500 1900 Other: Voiding Method Indwelling Catheter Indwelling Catheter Bedside Commode - Exam GENERAL DESCRIPTION: An elderly female lying in bed in no distress RESPIRATORY SYSTEM: Unlabored breathing , decreased breath sounds at bases HEART: S1 S2 regular rate and rhythm , ABDOMEN: Soft , no tenderness EXTREMITIES: Right knee incision is stress no drainage on the dressing - Labs CBC & Chem 7: 04/04/22 03:47 04/04/22 03:47 Labs: Abnormal Lab Results - Last 24 Hours (Table) 04/03/22 04/03/22 Range/Units 05:37 05:37 RBC 2.38 L (4.10-5.20) X 10*6/uL Hgb 7.0 L (12.0-15.0) g/dL Hct 22.5 L (37.2-46.3) % MCHC 31.1 L (32.0-37.0) g/dL MPV 12.3 H (9.5-12.2) fL Immature Gran # 0.07 H (0.00-0.04) X 10*3/uL Creatinine 1.09 H (0.52-1.04) mg/dL Microbiology - Last 24 Hours (Table) 03/31/22 18:29 Anaerobic Culture - Preliminary Knee - Right 03/31/22 18:29 Gram Stain - Preliminary Knee - Right Tissue Culture - Preliminary Assessment and Plan (1) Leukocytosis Status: Acute Code(s): D72.829 - ELEVATED WHITE BLOOD CELL COUNT, UNSPECIFIED SNOMED Code(s): 965437372 (2) Septic joint of right knee joint Status: Acute Code(s): M00.9 - PYOGENIC ARTHRITIS, UNSPECIFIED SNOMED Co de(s): 709225763 Plan: 1patient with right knee septic arthritis in this patient who did have a stage I procedure followed by more than 6 weeks of IV antibiotic therapy patient did have a negative culture from the right knee after completion of her antibiotic now is status post stage II procedure completed on 03/31/2022 with no mention of any purulence and no OR cultures were done. 2patient did have elevated white count questionably reactive to recent surgery as the patient currently do not have any fever or any obvious focus of infection. 3the patient white count has normalized today inflammatory markers are mildly elevated. 4the patient to continue with the vancomycin while waiting for the cultures to finalize and monitor clinical course closely
--- NOTE | 2022-04-11 23:57 | P.PN ---
Subjective Progress Note Date: 04/04/22 Principal diagnosis: Leukocytosis and a history of right knee septic arthritis MRSA Patient is a 72-year-old female with a past medical history significant for right knee septic arthritis secondary to MRSA, patient did have a stage I procedure completed few weeks ago and the patient afterwards completed more than 6-week course of IV vancomycin the patient has been electively admitted to the hospital for her reimplantation revision total knee arthroplasty and removal of the nonbiodegradable drug delivery implant, procedure was completed on 03/31/2022. on today's evaluation that is 04/04/2022, the patient continues to be afebrile, the patient is breathing comfortably on room air, patient did have occasional dry cough, the patient denies having any nausea no vomiting no abdominal pain no diarrhea. Pain to the right knee is currently controlled Objective - Vital Signs Vital signs: Vital Signs Temp 98.1 F 04/04/22 14:32 Pulse 93 04/04/22 14:32 Resp 18 04/04/22 14:32 BP 134/75 04/04/22 14:32 Pulse Ox 96 04/04/22 14:32 FiO2 Intake & Output 04/03/22 04/04/22 04/04/22 18:59 06:59 18:59 Intake Total 860 Balance 860 Intake: Oral 550 Blood Product 310 Rc As-1 Unit 310 [id number] Other: Voiding Method Bedside Commode Bedside Commode Toilet Bedside Commode # Voids 2 2 # Bowel Movements 2 - Exam GENERAL DESCRIPTION: An elderly female lying in bed in no distress RESPIRATORY SYSTEM: Unlabored breathing , decreased breath sounds at bases HEART: S1 S2 regular rate and rhythm , ABDOMEN: Soft , no tenderness EXTREMITIES: Right knee incision is stress no drainage on the dressing - Labs CBC & Chem 7: 04/04/22 03:47 04/04/22 03:47 Labs: Abnormal Lab Results - Last 24 Hours (Table) 04/03/22 04/04/22 04/04/22 Range/Units 10:57 03:47 03:47 RBC 2.62 L (3.80-5.40) m/uL Hgb 8.1 L (11.4-16.0) gm/dL Hct 24.3 L (34.0-46.0) % Sodium 136 L (137-145) mmol/L Creatinine 1.13 H (0.52-1.04) mg/dL Glucose 117 H (74-99) mg/dL Calcium 8.0 L (8.4-10.2) mg/dL Crossmatch See Detail Microbiology - Last 24 Hours (Table) 03/31/22 18:29 Anaerobic Culture - Preliminary Knee - Right 03/31/22 18:29 Gram Stain - Preliminary Knee - Right Tissue Culture - Preliminary Assessment and Plan (1) Leukocytosis Status: Acute Code(s): D72.829 - ELEVATED WHITE BLOOD CELL COUNT, UNSPECIFIED SNOMED Code(s): 543582794 (2) Septic joint of right knee joint Status: Acute Code(s): M00.9 - PYOGENIC ARTHRITIS, UNSPECIFIED SNOMED Code(s): 170098678 Plan: 1patient with right knee septic arthritis in this patient who did have a stage I procedure followed by more than 6 weeks of IV antibiotic therapy patient did have a negative culture from the right knee after completion of her antibiotic now is status post stage II procedure completed on 03/31/2022 with no mention of any purulence and no OR cultures were done. 2patient did have elevated white count questionably reactive to recent surgery as the patient currently do not have any fever or any obvious focus of infec tion. 3the patient white count has normalized and cultures has been negative 4-we will give her a course of oral suppressive doxycycline therapy as the patient is considered to be high risk of infection as per discussion with the surgeon and close outpatient follow-up Time with Patient: Less than 30
--- NOTE | 2022-04-14 13:24 | CDI ---
Documentation Clarification Form Date: 04/14/22 From: Monica Dinh Admit Date: 03/31/2022 11:06:00 AM Patient Name: Erika Morin Visit Number: [id number] Discharge Date: 04/04/2022 06:27:00 PM ATTENTION: The Clinical Documentation Specialists (CDI) and [facility] Coding Staff appreciate your assistance in clarifying documentation. Please respond to the clarification below the line at the bottom and electronically sign. The CDI & [facility] Coding staff will review the response and follow-up if needed. Please note: Queries are made part of the Legal Health Record. If you have any questions, please contact the author of this message via ITS. Dr. Ray Ro, Patient has a documented BMI of 44.4. Additional clarification is requested. 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 Severe Arthrofibrosis right total knee replacement, Hypertension Clinical Indicators: Per your query response "Acute blood loss anemia is a complication of the procedure, is expected from her extensive revision procedure AND is due to her co-morbidities particularly her BMI. Patients weight is 106.594 kg Patients height is 5'1" Calculated BMI is 44. Treatments: Discharged to SNF for additional care Please clarify if patients BMI indicates an additional diagnosis: [ ] Morbid (Extreme) (severe) obesity [ ] No additional diagnosis/not clinically significant [ ] Other, please specify ____ [ ] Unable to determine Reference: NIH Classification for BMI Overweight BMI 2529.9 Obesity (Class 1) BMI 3034.9 Obesity (Class 2) BMI 3539.9 Morbid obesity (Class 3/Extreme/severe) BMI =40 No additional diagnosis. WB MTDD
== END 2022-04-04 18:27 | DRG 467 ==
LOC: 2ORMAIN 11:06 → 4SSUR 19:59
PROVIDERS: ADMIT Orthopaedic Surgery; ATTEND Orthopaedic Surgery
PROC: 0SPC0EZ Removal of Articulating Spacer from Right Knee Joint, Open Approach (ICD-10-PCS; principal; 2022-03-31 13:10)
PROC: 0SPC0JZ Removal of Synthetic Substitute from Right Knee Joint, Open Approach (ICD-10-PCS; principal; 2022-03-31 13:10)
PROC: 0QBB0ZZ Excision of Right Lower Femur, Open Approach (ICD-10-PCS; principal; 2022-03-31 13:10)
PROC: 0SRC0J9 Replacement of Right Knee Joint with Synthetic Substitute, Cemented, Open Approach (ICD-10-PCS; principal; 2022-03-31 13:10)
PROC: 30233N1 Transfusion of Nonautologous Red Blood Cells into Peripheral Vein, Percutaneous Approach (ICD-10-PCS; 2022-04-03)
DX: Z47.33 Aftercare following explantation of knee joint prosthesis (principal); D62 Acute posthemorrhagic anemia; Z20.822 Contact with and (suspected) exposure to COVID-19; E78.5 Hyperlipidemia, unspecified; I12.9 Hypertensive chronic kidney disease with stage 1 through stage 4 chronic kidney disease, or unspecified chronic kidney disease; N18.2 Chronic kidney disease, stage 2 (mild); K21.9 Gastro-esophageal reflux disease without esophagitis; M24.661 Ankylosis, right knee; M15.9 Polyosteoarthritis, unspecified; M51.37 Other intervertebral disc degeneration, lumbosacral region; F41.9 Anxiety disorder, unspecified; R26.9 Unspecified abnormalities of gait and mobility; D72.829 Elevated white blood cell count, unspecified; Z79.811 Long term (current) use of aromatase inhibitors; Z79.899 Other long term (current) drug therapy; Z86.14 Personal history of Methicillin resistant Staphylococcus aureus infection; Z96.643 Presence of artificial hip joint, bilateral; Z96.652 Presence of left artificial knee joint; Z85.3 Personal history of malignant neoplasm of breast; Y83.1 Surgical operation with implant of artificial internal device as the cause of abnormal reaction of the patient, or of later complication, without mention of misadventure at the time of the procedure; Z88.6 Allergy status to analgesic agent
CPT/HCPCS: 64447; 64999; 76942; 80048; 82565; 84145; 85025; 86850; 86900; 86901; 86920; 87070; 87075; 87205; 87635; 93970

== ENCOUNTER → 2022-06-02 | Outpatient (CLI) | payer MEDICARE ==
--- NOTE | 2022-06-02 15:21 | P.PN ---
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 The patient did not have radiation therapy post procedure. She is on Aromasin. She has no complaints related to her chest blanca. Since her last visit she has had multiple procedures on her right knee. She had a MRSA infection. At this time she is doing better. She is using a wheel walker. oncotype score 7 caffeine: 2 cups of coffee/day nicotine: none chocolate: occasional hormones: short time after total hysterectomy BCP: none Family History: 2 sisters: bilateral breast removed/ breast cancer; uncertain if cancer in both breast; sisters were in their 40's or 50's when diagnosed mother: breast cancer in 70's paternal aunt: breast cancer Hormonal History: menarche: 12 M1, breast fed: no, age at first : 19 menopause: total hysterectomy at 39 hormones: after WILDER 1 year Surgical history: Total abdominal hysterectomy done for endometriosis gallbladder appy orthopediac left hip total, right knee total,left hip redone, right hip left knee heart cath right knee surgery multiple procedures Medical History: Hypertension Hyperlipidemia Osteoarthritis Social History: nicotine: none alcohol: none drugs: none - Constitutional Constitutional: Denies chills, Denies fever - EENT Comment: beginning of macular degeneration, bilateral cataracts Eyes: denies blurred vision, denies pain Ears: deny: decreased hearing, tinnitus Ears, nose, mouth and throat: Denies headache, Denies sore throat - Breasts Breasts: bilateral: as per HPI - Cardiovascular Cardiovascular: Denies chest pain, Denies shortness of breath - Respiratory Respiratory: Denies cough - Gastrointestinal Gastrointestinal: Denies abdominal pain, Denies diarrhea, Denies nausea, Denies vomiting - Genitourinary (Female) Genitourinary: Denies dysuria, Denies hematuria - Menstruation Menstruation: Reports post hysterectomy - Musculoskeletal Comment: rotator cuff surgery, uses a wheel chair uses ultram Musculoskeletal: Reports as per HPI - Integumentary Comment: dry skin - Neurological Comment: right hand numbness/carpel tunnel - Psychiatric Psychiatric: Denies anxiety, Denies depression - Endocrine Endocrine: Denies fatigue, Denies weight change - Hematologic/Lymphatic Comment: none - Allergic/Immunologic Allergic/Immunologic: Reports as per HPI - Constitutional Constitutional: Denies chills, Denies fever - EENT Comment: Beginning of macular degeneration, bilateral cataracts Ears: deny: decreased hearing, tinnitus - Breasts Breasts: bilateral: as per HPI - Cardiovascular Cardiovascular: Denies chest pain, Denies shortness of breath - Respiratory Respiratory: Denies cough - Gastrointestinal Gastrointestinal: Denies abdominal pain, Denies diarrhea, Denies nausea, Denies vomiting - Genitourinary (Female) Genitourinary: Denies dysuria, Denies hematuria - Menstruation Menstruation: Reports post hysterectomy - Musculoskeletal Comment: Rotator cuff surgery, uses a wheelchair, uses Ultram - Integumentary Comment: Dry skin - Neurological Comment: Right hand numbness/carpal tunnel - Psychiatric Psychiatric: Denies anxiety, Denies depression - Endocrine Endocrine: Denies fatigue, Denies weight change - Hematologic/Lymphatic Comment: None - Allergic/Immunologic Allergic/Immunologic: Reports as per HPI Objective - Constitutional General appearance: Present: cooperative - EENT Eyes: Present: EOMI ENT: Present: hearing grossly normal - Neck Neck: Present: normal ROM - Respiratory Respiratory: bilateral: CTA - Cardiovascular Heart sounds: normal: S1, S2 - Gastrointestinal General gastrointestinal: Present: soft - Integumentary Integumentary: Present: normal turgor - Musculoskeletal Musculoskeletal: Present: gait normal - Psychiatric Psychiatric: Present: A&O x's 3, appropriate affect, intact judgment & insight - Additional findings Additional findings: Chest wall: right chest wall: No evidence of recurrent cancer Right axilla: No adenopathy of concern Left chest wall: No lesions of concern Left axilla: No adenopathy of concern Assessment and Plan Assessment: Impression: No evidence of recurrent right breast cancer Patient tolerating Aromasin Patient to start physical therapy for her right knee next week Plan: Continue Aromasin Follow-up here in 4 months Continue treatment with orthopedic surgeon regarding right knee CC: Dr. Yao
[2022-06-02 15:22] VITALS: BP 167/85; PULSE 107; RESP 17; TEMP 98.8
== END ==
LOC: WWCWWP 15:03
PROVIDERS: ATTEND Surgery
DX: Z85.3 Personal history of malignant neoplasm of breast (principal); M19.90 Unspecified osteoarthritis, unspecified site; I10 Essential (primary) hypertension; E78.5 Hyperlipidemia, unspecified; Z88.6 Allergy status to analgesic agent

== ENCOUNTER → 2022-12-01 | Outpatient (CLI) | payer MEDICARE ==
[2022-12-02 02:02] LABS: Basophils # (A) 0.12 X 10*3/uL (0.00-0.10); Basophils % (A) 1.1 %; Eosinophils # (A) 0.14 X 10*3/uL (0.04-0.35); Eosinophils % (A) 1.3 %; HCT 44.7 % (37.2-46.3); HGB 13.7 d/dL (12.0-15.0); Lymphocytes # (A) 1.78 X 10*3/uL (0.90-5.00); Lymphocytes % (A) 16.3 %; MCH 29.4 pg (27.0-32.0); MCHC 30.6 d/dL (32.0-37.0); MCV 95.9 FL (80.0-97.0); Mean Platelet Volume 12.5 FL (9.5-12.2); Monocytes # (A) 1.25 X 10*3/uL (0.20-1.00); Monocytes % (A) 11.4 %; NRBC Per 100 WBC 0 X 10*3/uL (0.00-0.01); Neutrophils # (A) 7.56 X 10*3/uL (1.80-7.70); Neutrophils % (A) 69.2 %; Platelet Count 282 X 10*3/uL (140-440); RBC 4.66 X 10*6/uL (4.10-5.20); RDW 14.5 % (11.5-14.5); WBC 10.93 X 10*3/uL (4.50-10.00)
[2022-12-02 02:34] LABS: ALT 38 U/L (8-44); AST 29 U/L (13-35); Albumin 4.4 d/dL (3.8-4.9); Albumin/Globulin Ratio 1.57 Ratio (1.60-3.17); Alkaline Phosphatase 77 U/L (41-126); BUN/Creat Ratio 20.29 Ratio (12.00-20.00); Blood Urea Nitrogen 28.4 mg/dL (9.0-27.0); Calcium 10.2 mg/dL (8.7-10.3); Carbon Dioxide 22.9 mmol/L (21.6-31.8); Chloride 102 mmol/L (96-109); Chol/HDL Ratio 3.13 Ratio; Globulin 2.8 d/dL (1.6-3.3); Glucose 109 mg/dL (70-110); LDL Cholesterol,Calculated 94.5 mg/dL (0.0-131.0); Magnesium 2.2 mg/dL (1.5-2.4); Potassium 5.4 mmol/L (3.5-5.5); Sodium 138 mmol/L (135-145); Total Bilirubin 0.5 mg/dL (0.3-1.2); Total Protein 7.2 d/dL (6.2-8.2); Uric Acid 6.1 mg/dL (2.9-7.7)
[2022-12-02 03:27] LABS: Erythrocyte Sedimentation Rate 92 mm/Hr (0-30)
== END | disposition home or self-care (01) ==
LOC: LABWHC1 11:47
PROVIDERS: ATTEND Internal Medicine Infectious Disease
DX: Z00.01 Encounter for general adult medical examination with abnormal findings (principal); I12.9 Hypertensive chronic kidney disease with stage 1 through stage 4 chronic kidney disease, or unspecified chronic kidney disease; E78.5 Hyperlipidemia, unspecified; N18.30 Chronic kidney disease, stage 3 unspecified; E66.01 Morbid (severe) obesity due to excess calories
CPT/HCPCS: 36415; 80053; 80061; 82272; 82306; 83036; 83735; 84100; 84443; 84550; 85025; 85652; 86140

== ENCOUNTER → 2022-12-01 | Outpatient (CLI) | payer MEDICARE ==
[2022-12-01 12:55] VITALS: BP 165/86; PULSE 94; RESP 17; TEMP 98.5
--- NOTE | 2022-12-01 12:55 | P.PN ---
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 The patient did not have radiation therapy post procedure. She is on Aromasin. She has no complaints related to her chest blanca. Since her last visit she has had multiple procedures on her right knee. She had a MRSA infection. At this time she is doing better. She is using a wheelchair, or a walker She is not complaining of any chest wall lesions She is taking tramadol as per Dr. Yao for her right knee oncotype score 7 caffeine: 2 cups of coffee/day nicotine: none chocolate: occasional hormones: short time after total hysterectomy BCP: none Family History: 2 sisters: bilateral breast removed/ breast cancer; uncertain if cancer in both breast; sisters were in their 40's or 50's when diagnosed mother: breast cancer in 70's paternal aunt: breast cancer Hormonal History: menarche: 12 M1, breast fed: no, age at first : 19 menopause: total hysterectomy at 39 hormones: after WILDER 1 year Surgical history: Total abdominal hysterectomy done for endometriosis gallbladder appy orthopediac left hip total, right knee total,left hip redone, right hip left knee heart cath right knee surgery multiple procedures Medical History: Hypertension Hyperlipidemia Osteoarthritis Social History: nicotine: none alcohol: none drugs: none - Constitutional Constitutional: Denies chills, Denies fever - EENT Comment: beginning of macular degeneration, bilateral cataracts Eyes: denies blurred vision, denies pain Ears: deny: decreased hearing, tinnitus Ears, nose, mouth and throat: Denies headache, Denies sore throat - Breasts Breasts: bilateral: as per HPI - Cardiovascular Cardiovascular: Denies chest pain, Denies shortness of breath - Respiratory Respiratory: Denies cough - Gastrointestinal Gastrointestinal: Denies abdominal pain, Denies diarrhea, Denies nausea, Denies vomiting - Genitourinary (Female) Genitourinary: Denies dysuria, Denies hematuria - Menstruation Menstruation: Reports post hysterectomy - Musculoskeletal Comment: rotator cuff surgery, uses a wheel chair uses ultram Musculoskeletal: Reports as per HPI - Integumentary Comment: dry skin - Neurological Comment: right hand numbness/carpel tunnel - Psychiatric Psychiatric: Denies anxiety, Denies depression - Endocrine Endocrine: Denies fatigue, Denies weight change - Hematologic/Lymphatic Comment: none - Allergic/Immunologic Allergic/Immunologic: Reports as per HPI - Constitutional Constitutional: Denies chills, Denies fever - EENT Comment: Beginning of macular degeneration, bilateral cataracts Ears: deny: decreased hearing, tinnitus - Breasts Breasts: bilateral: as per HPI - Cardiovascular Cardiovascular: Denies chest pain, Denies shortness of breath - Respiratory Respiratory: Denies cough - Gastrointestinal Gastrointestinal: Denies abdominal pain, Denies diarrhea, Denies nausea, Denies vomiting - Genitourinary (Female) Genitourinary: Denies dysuria, Denies hematuria - Menstruation Menstruation: Reports post hysterectomy - Musculoskeletal Comment: Rotator cuff surgery, uses a wheelchair, uses Ultram - Integumentary Comment: Dry skin - Neurological Comment: Right hand numbness/carpal tunnel - Psychiatric Psychiatric: Denies anxiety, Denies depression - Endocrine Endocrine: Denies fatigue, Denies weight change - Hematologic/Lymphatic Comment: None - Allergic/Immunologic Allergic/Immunologic: Reports as per HPI Objective - Constitutional General appearance: Present: cooperative - EENT Eyes: Present: EOMI ENT: Present: hearing grossly normal - Neck Neck: Present: normal ROM - Respiratory Respiratory: bilateral: CTA - Cardiovascular Heart sounds: normal: S1, S2 - Integumentary Integumentary: Present: normal turgor - Psychiatric Psychiatric: Present: A&O x's 3, appropriate affect, intact judgment & insight - Additional findings Additional findings: Chest wall: right chest wall: No evidence of recurrent cancer Right axilla: No adenopathy of concern Left chest wall: No lesions of concern Left axilla: No adenopathy of concern Assessment and Plan Assessment: Impression: No evidence of recurrent right breast cancer Patient tolerating Aromasin Patient completed physical therapy of her right knee Plan: Continue Aromasin Follow-up here in 4 months Continue treatment with orthopedic surgeon regarding right knee continue follow up with DR. Staton CC: Dr. Yao
== END ==
LOC: WWCWWP 12:10
PROVIDERS: ATTEND Surgery
DX: I10 Essential (primary) hypertension (principal); E78.5 Hyperlipidemia, unspecified; M19.90 Unspecified osteoarthritis, unspecified site; Z80.3 Family history of malignant neoplasm of breast; Z85.3 Personal history of malignant neoplasm of breast; Z90.13 Acquired absence of bilateral breasts and nipples; Z17.0 Estrogen receptor positive status [ER+]; Z88.8 Allergy status to other drugs, medicaments and biological substances; Z79.899 Other long term (current) drug therapy

== ENCOUNTER → 2024-01-31 | Outpatient (CLI) | payer MEDICARE ==
--- NOTE | 2024-02-01 19:06 | BD ---
EXAMINATION TYPE: Axial Bone Density DATE OF EXAM: 01/31/2024 CLINICAL HISTORY: 74 years old Female. ICD-10 CODE: M85.9 OSTEOPENIA Height: 5 ft 1 in Weight: 246 FRAX RISK QUESTIONS: Alcohol (3 or more units per day): no Family History (Parent hip fracture): no Glucocorticoids (More than 3mos): no (Ex: prednisone, prednisolone, methylprednisolone, dexamethasone, and hydrocortisone). History of Fracture in Adulthood: yes Secondary Osteoporosis: 1. Type 1 Diabetes: no 2. Hyperthyroidism: no 3. Menopause before 45: no 4. Malnutrition: no 5. Chronic liver disease: no Rheumatoid Arthritis: no Current Tobacco Use: no RISK FACTORS HISTORY OF: Surgery to Spine/Hip(right/left)/Wrist (right/left): [facility] hip replacement MEDICATIONS: Thyroid Medications: none Osteoporosis Medications: none EXAM MEASUREMENTS: Bone mineral densitometry was performed using the [employer]. Bone mineral density as measured about the Lumbar spine is: ----- L1-L4(G/cm2): 0.928 T Score Values are as follows: ----- L1: -2.2 ----- L2: -2.0 ----- L3: -2.7 ----- L4: -1.9 ----- L1-L4: Z Score Values are as follows: ----- L1: -1.6 ----- L2: -1.4 ----- L3: -2.1 ----- L4: -1.3 ----- L1-L4: -1.5 Bone mineral density has: decreased -13.1 % since study of: 2021 Bone mineral density about the L Wrist (g/cm2): 0.575 T Score values are as follows: -----Dist. R+U: -2.1 -----Prox. R+U: -1.8 -----Radius total: -1.7 Z Score values are as follows: -----Dist. R+U: 0.2 -----Prox. R+U: 0.4 -----Radius total: 0.6 Bone mineral density has: decreased -3.8 % since study of: 2021 IMPRESSION: Osteopenia (T Score between -2.5 and -1). There is slightly increased risk of fracture and the patient may be considered for treatment. Re-Screen 2-5 years. NOTE: T-SCORE=SD OF THE YOUNG ADULT MEAN. [facility], , 02/01/2024 7:03 PM
== END | disposition home or self-care (01) ==
LOC: RADBDWWP 10:55
PROVIDERS: ATTEND Internal Medicine Hematology & Oncology
DX: M85.9 Disorder of bone density and structure, unspecified
CPT/HCPCS: 77080